=== PATIENT | male | born 1965 | race Caucasian/White ===

== ENCOUNTER → 2018-08-17 22:49 | Outpatient (CLI) | payer BC, SELFPAY ==
[2018-08-17 23:26] LABS: ALB/GLOB Ratio 1.2 RATIO (0.9-2.4); AST(SGOT) 22 U/L (15-37); Alanine Aminotransfer ALT/SGPT 47 U/L (16-61); Albumin, Serum 4.2 g/dL (3.2-5.0); Alkaline Phosphatase 44 U/L (45-117); Anion Gap 9 (5-15); BUN 14 mg/dL (7-18); Calcium,Total 8.7 mg/dL (8.5-10.1); Chloride 104 mmol/L (98-107); Cholesterol 154 mg/dL (200); Creatinine, Serum 0.94 mg/dL (0.70-1.30); EST Glomerular Filtration Rate 89 mL/min (>60); Est Glom Filt Rate - Afr Amer 108 mL/min (>60); Globulin 3.6 g/dL (2.2-4.2); Glucose 141 mg/dL (74-106); High Density Lipoprotein 27 mg/dL; Potassium 3.9 mmol/L (3.5-5.1); Protein, Total 7.8 g/dL (6.4-8.2); Sodium Level 138 mmol/L (136-145); Triglycerides 507 mg/dL
== END ==
PROVIDERS: Visit Provider Nurse Practitioner
DX: E11.65 Type 2 diabetes mellitus with hyperglycemia (principal); E78.1 Pure hyperglyceridemia
CPT/HCPCS: 80053; 80061

== ENCOUNTER → 2019-08-12 17:53 | Outpatient (CLI) | payer BC, SELFPAY ==
[2019-08-12 11:13] VITALS: BMI 38.6
[2019-08-12 18:08] LABS: Absolute Lymphocyte Count 1.85 X10^3/uL (0.83-4.51); Basophil# 0.05 X10^3/uL; Basophil% 0.7 % (0-1); Eosinophil# 0.17 X10^3/uL; Eosinophils% 2.2 % (0-5); Hemoglobin 16.6 g/dL (13.0-16.5); Lymphocyte # 1.85 X10^3/ul (4.0); Lymphocyte % 24.3 % (19-41); Mean Corp Hgb Conc 35.3 g/dL (32-36); Mean Corpuscular Hgb 32.2 pg (27.0-32.0); Mean Corpuscular Volume 91.1 fL (80-94); Mean Platelet Vol. 9.6 fl (6.2-12.0); Monocyte# 0.51 X10^3/uL; Monocyte% 6.7 % (0-10); NRBC Flagged by Analyzer 0 % (0-5); Neutrophil # 5.03 X10^3/uL (2.7-7.7); Platelet Count 226 K/mm3 (150-450); RBC Distribution Width SD 42.7 fl (35.1-43.9); Red Blood Count 5.16 M/mm3 (4.6-6.2); White Blood Count 7.6 K/mm3 (4.4-11.0)
[2019-08-12 18:35] LABS: ALB/GLOB Ratio 1.1 RATIO (0.9-2.4); AST(SGOT) 18 U/L (15-37); Alanine Aminotransfer ALT/SGPT 32 U/L (16-61); Albumin, Serum 4.1 g/dL (3.2-5.0); Alkaline Phosphatase 42 U/L (45-117); Anion Gap 7 (5-15); BUN 12 mg/dL (7-18); BUN/Creat Ratio 15.1 RATIO (10-20); Calcium,Total 9.4 mg/dL (8.5-10.1); Chloride 106 mmol/L (98-107); Cholesterol 150 mg/dL (200); EST Glomerular Filtration Rate 107 mL/min (>60); Est Glom Filt Rate - Afr Amer 129 mL/min (>60); Globulin 3.6 g/dL (2.2-4.2); Glucose 146 mg/dL (74-106); High Density Lipoprotein 30 mg/dL; Potassium 4.1 mmol/L (3.5-5.1); Protein, Total 7.7 g/dL (6.4-8.2); Sodium Level 140 mmol/L (136-145); Triglycerides 277 mg/dL; Very Low Density Lipoprotein 55 mg/dL (5-40)
== END ==
PROVIDERS: Referring Provider Nurse Practitioner; Visit Provider Nurse Practitioner
DX: I10 Essential (primary) hypertension (principal); E78.1 Pure hyperglyceridemia; E11.65 Type 2 diabetes mellitus with hyperglycemia
CPT/HCPCS: 80053; 80061; 85025

== ENCOUNTER → 2021-03-06 | Outpatient (CLI) | payer OTHER, SELFPAY ==
[2021-03-06 18:40] VITALS: BMI 38.7
[2021-03-06 21:25] LABS: Absolute Lymphocyte Count 2.03 X10^3/uL (0.83-4.51); Absolute Neutrophil Count 4.3 X10^3/uL (2.0-7.7); Basophil# 0.05 X10^3/uL; Basophil% 0.7 % (0-1); Eosinophil# 0.18 X10^3/uL; Eosinophils% 2.5 % (0-5); Hematocrit 47.2 % (40-54); Hemoglobin 16.8 g/dL (13.0-16.5); Lymphocyte # 2.03 X10^3/ul (0.83-4.51); Lymphocyte % 28.7 % (19-41); Mean Corp Hgb Conc 35.6 g/dL (32-36); Mean Corpuscular Hgb 32.1 pg (27.0-32.0); Mean Corpuscular Volume 90.1 fL (80-94); Mean Platelet Vol. 9.6 fl (6.2-12.0); Monocyte# 0.53 X10^3/uL; Monocyte% 7.5 % (0-10); NRBC Flagged by Analyzer 0 % (0-5); Neutrophil # 4.25 X10^3/uL (2.7-7.7); Neutrophil % 60.2 % (47-70); Platelet Count 249 K/mm3 (150-450); RBC Distribution Width CV 13.3 % (11.6-14.6); RBC Distribution Width SD 43.1 fl (35.1-43.9); Red Blood Count 5.24 M/mm3 (4.6-6.2); White Blood Count 7.1 K/mm3 (4.4-11.0)
[2021-03-06 21:42] LABS: ALB/GLOB Ratio 1.1 RATIO (0.9-2.4); AST(SGOT) 28 U/L (15-37); Alanine Aminotransfer ALT/SGPT 48 U/L (16-61); Alkaline Phosphatase 51 U/L (45-117); Anion Gap 6 (5-15); BUN 16 mg/dL (7-18); Calcium,Total 9.1 mg/dL (8.5-10.1); Chloride 104 mmol/L (98-107); Cholesterol 161 mg/dL (200); Creatinine, Serum 0.94 mg/dL (0.70-1.30); EST Glomerular Filtration Rate 88 mL/min (>60); Est Glom Filt Rate - Afr Amer 106 mL/min (>60); Globulin 3.6 g/dL (2.2-4.2); Glucose 200 mg/dL (74-106); High Density Lipoprotein 26 mg/dL; PSA,Total - Annual Screen 0.54 ng/mL (0.00-4.00); Potassium 4.1 mmol/L (3.5-5.1); Protein, Total 7.6 g/dL (6.4-8.2); Sodium Level 137 mmol/L (136-145); Triglycerides 689 mg/dL
== END | disposition home or self-care (01) ==
PROVIDERS: PCP Nurse Practitioner; Referring Provider Nurse Practitioner; Visit Provider Nurse Practitioner
DX: E11.65 Type 2 diabetes mellitus with hyperglycemia (principal); E78.1 Pure hyperglyceridemia; R35.0 Frequency of micturition
CPT/HCPCS: 80053; 80061; 84153; 85025; G0103

== ENCOUNTER → 2021-06-10 | Outpatient (CLI) | payer OTHER, SELFPAY ==
[2021-06-10 21:45] LABS: Cholesterol 180 mg/dL (200); High Density Lipoprotein 29 mg/dL; Triglycerides 487 mg/dL
== END | disposition home or self-care (01) ==
PROVIDERS: PCP Nurse Practitioner; Visit Provider Nurse Practitioner
DX: E11.65 Type 2 diabetes mellitus with hyperglycemia (principal)
CPT/HCPCS: 80061

== ENCOUNTER → 2021-09-16 22:11 | Outpatient (CLI) | payer BC, SELFPAY ==
[2021-09-16 22:50] LABS: Cholesterol 152 mg/dL (200); High Density Lipoprotein 30 mg/dL; Triglycerides 414 mg/dL
[2021-09-16 22:53] LABS: Hemoglobin A1c 8.1 % (3.8-5.6)
== END ==
PROVIDERS: PCP Nurse Practitioner; Referring Provider Nurse Practitioner; Visit Provider Nurse Practitioner
DX: E11.65 Type 2 diabetes mellitus with hyperglycemia (principal); E78.1 Pure hyperglyceridemia
CPT/HCPCS: 80061; 83036

== ENCOUNTER → 2022-06-05 | Outpatient (CLI) | payer BC, SELFPAY ==
[2022-06-05 21:26] LABS: Absolute Lymphocyte Count 2.12 X10^3/uL (0.83-4.51); Absolute Neutrophil Count 4.7 X10^3/uL (2.0-7.7); Basophil# 0.04 X10^3/uL; Basophil% 0.5 % (0-1); Eosinophil# 0.14 X10^3/uL; Eosinophils% 1.9 % (0-5); Hematocrit 47.4 % (40-54); Hemoglobin 16.8 g/dL (13.0-16.5); Lymphocyte # 2.12 X10^3/ul (0.83-4.51); Lymphocyte % 28.3 % (19-41); Mean Corp Hgb Conc 35.4 g/dL (32-36); Mean Corpuscular Hgb 32.1 pg (27.0-32.0); Mean Corpuscular Volume 90.6 fL (80-94); Mean Platelet Vol. 9.6 fl (6.2-12.0); Monocyte# 0.51 X10^3/uL; Monocyte% 6.8 % (0-10); NRBC Flagged by Analyzer 0 % (0-5); Neutrophil # 4.67 X10^3/uL (2.7-7.7); Neutrophil % 62.2 % (47-70); Platelet Count 235 K/mm3 (150-450); RBC Distribution Width CV 12.5 % (11.6-14.6); RBC Distribution Width SD 40.8 fl (35.1-43.9); Red Blood Count 5.23 M/mm3 (4.6-6.2); White Blood Count 7.5 K/mm3 (4.4-11.0)
[2022-06-05 21:40] LABS: ALB/GLOB Ratio 1.3 RATIO (0.9-2.4); AST(SGOT) 30 U/L (15-37); Alanine Aminotransfer ALT/SGPT 41 U/L (16-61); Albumin, Serum 4.4 g/dL (3.2-5.0); Alkaline Phosphatase 37 U/L (45-117); Anion Gap 9 (5-15); BUN 14 mg/dL (7-18); BUN/Creat Ratio 16.2 RATIO (10-20); Calcium,Total 9.4 mg/dL (8.5-10.1); Chloride 106 mmol/L (98-107); Cholesterol 96 mg/dL (200); Creatinine, Serum 0.86 mg/dL (0.70-1.30); EST Glomerular Filtration Rate 97 mL/min (>60); Est Glom Filt Rate - Afr Amer 117 mL/min (>60); Globulin 3.3 g/dL (2.2-4.2); Glucose 171 mg/dL (74-106); High Density Lipoprotein 31 mg/dL; Protein, Total 7.7 g/dL (6.4-8.2); Sodium Level 137 mmol/L (136-145); Triglycerides 233 mg/dL; Very Low Density Lipoprotein 47 mg/dL (5-40)
== END | disposition home or self-care (01) ==
PROVIDERS: PCP Nurse Practitioner; Visit Provider Nurse Practitioner
DX: Z00.00 Encounter for general adult medical examination without abnormal findings (principal)
CPT/HCPCS: 80053; 80061; 84153; 85025; G0103

== ENCOUNTER 2023-06-28 21:02 | Outpatient (CLI) | payer BC, SELFPAY ==
[2023-06-28 21:18] LABS: Absolute Lymphocyte Count 2.14 X10^3/uL (0.83-4.51); Absolute Neutrophil Count 4.6 X10^3/uL (2.0-7.7); Basophil# 0.04 X10^3/uL; Basophil% 0.5 % (0-1); Eosinophil# 0.13 X10^3/uL; Eosinophils% 1.7 % (0-5); Hematocrit 46.6 % (40-54); Hemoglobin 16.2 g/dL (13.0-16.5); Lymphocyte # 2.14 X10^3/ul (0.83-4.51); Lymphocyte % 28.7 % (19-41); Mean Corp Hgb Conc 34.8 g/dL (32-36); Mean Corpuscular Hgb 32.2 pg (27.0-32.0); Mean Corpuscular Volume 92.6 fL (80-94); Mean Platelet Vol. 9.6 fl (6.2-12.0); Monocyte# 0.53 X10^3/uL; Monocyte% 7.1 % (0-10); NRBC Flagged by Analyzer 0 % (0-5); Neutrophil # 4.59 X10^3/uL (2.7-7.7); Neutrophil % 61.6 % (47-70); Platelet Count 220 K/mm3 (150-450); RBC Distribution Width CV 12.8 % (11.6-14.6); RBC Distribution Width SD 43.6 fl (35.1-43.9); Red Blood Count 5.03 M/mm3 (4.6-6.2); White Blood Count 7.5 K/mm3 (4.4-11.0)
[2023-06-28 21:28] LABS: ALB/GLOB Ratio 1.4 RATIO (0.9-2.4); AST(SGOT) 17 U/L (15-37); Alanine Aminotransfer ALT/SGPT 31 U/L (16-61); Albumin, Serum 4.4 g/dL (3.2-5.0); Alkaline Phosphatase 40 U/L (45-117); Anion Gap 8 (5-15); BUN 14 mg/dL (7-18); BUN/Creat Ratio 15.3 RATIO (10-20); Calcium,Total 9.5 mg/dL (8.5-10.1); Chloride 106 mmol/L (98-107); Cholesterol 111 mg/dL (200); Creatinine, Serum 0.92 mg/dL (0.70-1.30); EST Glomerular Filtration Rate 90 mL/min (>60); Est Glom Filt Rate - Afr Amer 109 mL/min (>60); Globulin 3.2 g/dL (2.2-4.2); Glucose 146 mg/dL (74-106); High Density Lipoprotein 32 mg/dL; PSA,Total - Annual Screen 0.46 ng/mL (0.00-4.00); Protein, Total 7.6 g/dL (6.4-8.2); Sodium Level 141 mmol/L (136-145); Triglycerides 241 mg/dL; Very Low Density Lipoprotein 48 mg/dL (5-40)
== END 2023-06-28 23:59 | disposition home or self-care (01) ==
LOC: LABSPEC 21:02
PROVIDERS: Visit Provider Nurse Practitioner
DX: Z00.00 Encounter for general adult medical examination without abnormal findings (principal)
CPT/HCPCS: 80053; 80061; 83036; 84153; 85025; G0103

== ENCOUNTER → 2024-11-29 | Outpatient (CLI) | payer BC, SELFPAY ==
[2024-11-29 21:59] LABS: Absolute Lymphocyte Count 2.25 X10^3/uL (0.83-4.51); Basophil# 0.06 X10^3/uL; Basophil% 0.9 % (0-1); Eosinophil# 0.16 X10^3/uL; Eosinophils% 2.3 % (0-5); Hematocrit 47.5 % (40-54); Hemoglobin 16.6 g/dL (13.0-16.5); Lymphocyte # 2.25 X10^3/ul (0.83-4.51); Lymphocyte % 32.1 % (19-41); Mean Corp Hgb Conc 34.9 g/dL (32-36); Mean Corpuscular Hgb 31.3 pg (27.0-32.0); Mean Corpuscular Volume 89.6 fL (80-94); Mean Platelet Vol. 9.5 fl (6.2-12.0); Monocyte# 0.55 X10^3/uL; Monocyte% 7.8 % (0-10); NRBC Flagged by Analyzer 0 % (0-5); Neutrophil # 3.98 X10^3/uL (2.7-7.7); Neutrophil % 56.6 % (47-70); Platelet Count 239 K/mm3 (150-450); RBC Distribution Width CV 12.9 % (11.6-14.6); RBC Distribution Width SD 42.2 fl (35.1-43.9)
[2024-11-29 22:22] LABS: ALB/GLOB Ratio 1.3 RATIO (0.9-2.4); AST(SGOT) 21 U/L (15-37); Alanine Aminotransfer ALT/SGPT 34 U/L (16-61); Albumin, Serum 4.5 g/dL (3.2-5.0); Alkaline Phosphatase 40 U/L (45-117); Anion Gap 8 (5-15); BUN 20 mg/dL (7-18); BUN/Creat Ratio 20.5 RATIO (10-20); Calcium,Total 10.1 mg/dL (8.5-10.1); Chloride 102 mmol/L (98-107); Cholesterol 94 mg/dL (200); Creatinine, Serum 0.98 mg/dL (0.70-1.30); EST Glomerular Filtration Rate 83 mL/min (>60); Est Glom Filt Rate - Afr Amer 101 mL/min (>60); Globulin 3.4 g/dL (2.2-4.2); Glucose 123 mg/dL (74-106); High Density Lipoprotein 37 mg/dL; PSA,Total - Annual Screen 0.44 ng/mL (0.00-4.00); Potassium 4.2 mmol/L (3.5-5.1); Protein, Total 7.9 g/dL (6.4-8.2); Sodium Level 138 mmol/L (136-145); Triglycerides 186 mg/dL; Very Low Density Lipoprotein 37 mg/dL (5-40)
[2024-11-29 22:31] LABS: Hemoglobin A1c 7.3 % (3.8-5.6)
== END | disposition home or self-care (01) ==
PROVIDERS: PCP Nurse Practitioner; Referring Provider Nurse Practitioner; Visit Provider Nurse Practitioner
DX: I10 Essential (primary) hypertension (principal); E78.1 Pure hyperglyceridemia
CPT/HCPCS: 80053; 80061; 83036; 84153; 85025; G0103

== ENCOUNTER 2025-04-09 13:51 | Observation (INO) | payer BC, SELFPAY ==
[2025-04-09] VITALS (10 sets, daily range): BP systolic 124–154; BP diastolic 74–87; PULSE 71–86; RESP 14–18; TEMP 36.5–37.1; O2SAT 93–99; BMI 31.8; BMI 34.8
--- NOTE | 2025-04-09 13:56 | CT_ITS ---
PROCEDURE: STROKE BRAIN/HEAD WITHOUT CONT 04/09/2025 REASON FOR EXAM: NEURO DEFICIT, ACUTE, STROKE SUSPECTED TECHNIQUE: STROKE BRAIN/HEAD WITHOUT CONT Coronal and Sagittal reconstruction series were provided. One or more dose reduction techniques were used (e.g., Automated exposure control, adjustment of the mA and/or kV according to patient size, use of iterative reconstruction technique. RADIATION DOSE SUMMARY: CTDlvol: 47.06 mGy DLP: 943.26 mGycm COMPARISON: None FINDINGS: Brain: Within normal limits for age CSF Spaces: Normal Sinuses/Mastoids: Clear at visualized levels Bones: No skull fracture or scalp hematoma CT/STROKE Brain/Head without Cont IMPRESSION: Age consistent changes, no acute findings Reading Location: [id number]
--- NOTE | 2025-04-09 13:57 | CT_ITS ---
PROCEDURE: STROKE CTA HEAD AND NECK W/CON 04/09/2025 REASON FOR EXAM: NEURO DEFICIT, ACUTE, STROKE SUSPECTED TECHNIQUE: STROKE CTA HEAD AND NECK W/CON Multiplanar Sagittal and Coronal images were obtained. CONTRAST: Isovue 370 VOLUME: 100 mL One or more dose reduction techniques were used (e.g., Automated exposure control, adjustment of the mA and/or kV according to patient size, use of iterative reconstruction technique). RADIATION DOSE SUMMARY: CTDlvol: 39.59 mGy DLP: 967.81 mGycm COMPARISON: CT head from earlier today FINDINGS: Aortic Arch: Normal size and branching pattern. No significant atherosclerotic plaque. Brachiocephalic and Subclavians: Unremarkable RIGHT Carotid: Right CCA: Unremarkable. Right ICA: Unremarkable. Maximum stenosis (NASCET): <10 % Right ECA: Unremarkable. LEFT Carotid: Left CCA: Unremarkable. Left ICA: Unremarkable. Maximum stenosis (NASCET): <10 % Left ECA: Unremarkable. Vertebrals: Codominant. Arise from the subclavians. Both vertebrals form the basilar. RIGHT Vertebral: Unremarkable. LEFT Vertebral: Unremarkable. Anatomy: [place] anatomy is normal. Aneurysm or avm: No intracranial aneurysms or large vascular malformations are identified. No suspicious enhancing lesion, no airway narrowing or deviation. No suspicious adenopathy. Thyroid gland is unremarkable, lung apices are clear, incidental note is made of a prominent large left internal jugular vein CT/STROKE CTA Head AND Neck W/Con IMPRESSION: No CTA evidence of vaso occlusive disease No demonstrated aneurysm or vascular malformation Patent vertebral arteries No CTA evidence of CCA or ICA stenosis No suspicious enhancing lesion airway narrowing or deviation. Reading Location: [id number]
--- NOTE | 2025-04-09 13:57 | EKG12_ITS ---
Test Reason : STROKE TEAM Blood Pressure : */* mmHG Vent. Rate : 84 BPM Atrial Rate : 84 BPM P-R Int : 206 ms QRS Dur : 86 ms QT Int : 366 ms P-R-T Axes : 47 30 53 degrees QTcB Int : 432 ms Normal sinus rhythm Normal ECG Confirmed by MANDI CABRERA, BEBE ([id number]), editor city STANISLAW PERRY ([id number]) on 04/10/2025 1:31:36 PM Referred By: Bacilio Partida Confirmed By: BEBE RAYMOND MD
--- NOTE | 2025-04-09 14:00 | ED.RN ---
Per Shakila with [facility] stat line, they are behind on stroke alert assessments with the doctor. She will call when the doctor is ready.
[2025-04-09 14:16] LABS: Hematocrit 42.4 % (40-54); Hemoglobin 15.2 g/dL (13.0-16.5); Immature Granulocytes Count 0.060 X10^3/uL (0.0-0.0); Mean Corp Hgb Conc 35.8 g/dL (32-36); Mean Corpuscular Volume 92.2 fL (80-94); Mean Platelet Vol. 9.1 fl (6.2-12.0); NRBC Flagged by Analyzer 0 % (0-5); Platelet Count 219 K/mm3 (150-450); RBC Distribution Width CV 12.8 % (11.6-14.6); RBC Distribution Width SD 42.7 fl (35.1-43.9); Red Blood Count 4.60 M/mm3 (4.6-6.2); White Blood Count 9.8 K/mm3 (4.4-11.0)
[2025-04-09] MEDS: 0.9% Normal Saline (1000mL) 1,000 ML 999 ML IV (14:24)
--- NOTE | 2025-04-09 14:26 | EX.ED.DYSGE1 ---
HPI History of Present Illness Chief Complaint: Dizziness Narrative Narrative: Patient is a 60-year-old male past medical history of type 2 diabetes, neuropathy, hypertension who presented to the emergency department chief complaint dizziness and feeling very off balance when he tries to walk. He states that he went to bed around 1:30 AM and he states that he felt fine and notes that when he woke up around 5:30 AM is when he felt off and he states that he had to hold onto the end of the bed before continue to walk. He states that nothing like this is ever happened before. He states that he thought if he took his medications as the day went on things would get better but they are not. He states when he tried to walk in here he had to hold onto items as he felt very off balance. Patient denies any previous history of strokes denies any blood thinner medications [facility] Medical History (Updated 04/09/25 @ 16:[address] Harry Polanco, DO) Erectile dysfunction Hernia Diabetic peripheral neuropathy Type 2 diabetes mellitus Home Medications ?Medication ?Instructions ?Recorded ?Last Taken ?Type cholecalciferol (vitamin D3) 25 1,000 unit PO QDAY 05/17/18 Unknown History mcg (1,000 unit) capsule cyanocobalamin (vitamin B-12) 1,000 mcg PO QDAY 05/17/18 Unknown History 1,000 mcg tablet (Vitamin B-12) multivitamin,[id number] 1 tab PO QDAY 05/17/18 Unknown History (Complete Multivitamin tablet) omega-3 fatty acids 1,000 mg 2,000 mg PO BID 06/10/21 Unknown History capsule (Fish Oil Concentrate) empagliflozin 25 mg-metformin ER 1 tab PO DAILY #90 ea 11/29/24 Unknown Rx 1,000 mg tablet,extended release 24hr (Synjardy XR) gabapentin 300 mg capsule 1,200 mg (4 x 300 mg) PO BID 3 11/29/24 Unknown Rx months #720 caps glimepiride 4 mg tablet 4 mg PO QAM #90 tabs 11/29/24 Unknown Rx lisinopril 10 mg tablet 10 mg PO DAILY #90 tabs 11/29/24 Unknown Rx metformin 1,000 mg tablet 1,000 mg PO QHS #90 tabs 11/29/24 Unknown Rx rosuvastatin 20 mg tablet 20 mg PO DAILY #90 tabs 11/29/24 Unknown Rx semaglutide 2 mg/dose (8 mg/3 mL) 2 mg (0.75 mL) subcut QWEEK 3 11/29/24 Unknown Rx subcutaneous pen injector months #9.75 mL blood sugar diagnostic (OneTouch #100 ea 11/30/24 Unknown Rx Ultra Test strips) blood-glucose meter (OneTouch #1 ea 11/30/24 Unknown Rx Ultra2 Meter) lancets 30 gauge (OneTouch #200 ea 11/30/24 Unknown Rx UltraSoft 2 Lancet) Allergy/AdvReac Type Severity Reaction Status Date / Time No Known Allergies Allergy Verified 04/09/25 13:57 Surgical History Labral tear of long head of right biceps tendon History of arthroscopic knee surgery History of rotator cuff surgery Social History Smoking Status: Never smoker ROS ROS ED ROS Narrative Constitutional: Complains of dizziness as noted above denies any headache, fever, chills Eyes: Denies change in vision double vision blurry vision Cardiovascular: Denies chest pain Respiratory: Denies shortness of breath Abdomen: Denies abdominal pain nausea vomit diarrhea : Denies urinary symptoms Neurological: Complains of difficulty ambulating denies any numbness, weakness, tingling Musculoskeletal: Denies back pain Skin: Denies any rashes or lesions EXAM Physical Exam Narrative Exam Narrative: General: Patient lying in bed rest comfortably did not appear to be acute distress Head: Atraumatic, normocephalic Eyes: PERRL bilaterally, EOMI blood, no conjunctival injection noted Neck: Soft, supple, trachea midline Cardiovascular: Regular rate and rhythm no murmurs gallops rubs noted Respiratory: Clear to auscultation bilaterally no rales rhonchi or wheezes noted Abdomen: Soft, nondistended, nontender to palpation Extremities: +5/5 strength noted in the bilateral upper and lower extremities, radial pulses +2/4 in the bilateral extremities, no pedal edema on exam Neurological: Patient following commands knew that he was at [facility] year is 2024. NIH of 0 GCS 15 Skin: Warm, dry contact no rashes or lesions noted Const Vital Signs: 04/09/25 13:54 04/09/25 14:11 04/09/25 14:17 Temperature 98.7 F Temperature Source Temporal Pulse Rate 86 83 Respiratory Rate 16 16 Blood Pressure 154/82 H 142/87 H Blood Pressure Mean 106 105 Pulse Ox 98 93 94 Oxygen Delivery Method Room Air Room Air 04/09/25 14:32 04/09/25 14:47 Temperature Temperature Source Pulse Rate 73 Respiratory Rate 16 Blood Pressure 142/83 H 132/74 H Blood Pressure Mean 102 93 Pulse Ox 94 95 Oxygen Delivery Method Room Air MDM MDM MDM Narrative Medical decision making narrative: Patient is a 60-year-old male who presented to the emergency department chief complaint of dizziness. On the differential diagnose includes but limited to intracranial hemorrhage, hypoglycemia, electrolyte normality, cardiac arrhythmia, posterior circulation stroke, ischemic stroke. Once workup is obtained reviewed he will be reevaluated. Patient is not a tenecteplase candidate as his symptoms started around 5:30 A. M and his last known well was 1:30 AM There was ultimately a delay in telehealth evaluation of the patient secondary to volume issues Ultimately patient was evaluated by teleneurologist Dr. Feliciano and they are recommending admission for further stroke workup and states that the patient is not a tenecteplase candidate. Patient was given 325 aspirin. Patient's CBC reviewed showed no evidence leukocytosis white blood count normal 9.8, he was 15.2, platelet count of 219. Patient INR normal at 1.1, PT of 14.1. Patient sodium normal 136, potassium normal 3.9, creatinine normal at 0.85. Patient's troponin was 12, EKG was reviewed and showed sinus rhythm with a rate of 84 beats per minutes. Patient's glucose was noted to be 216. Patient CT head brain without contrast did not show any acute findings. Patient chest x-ray images pending at this point time. Patient's CTA head and neck showed no evidence of large vessel occlusion. At this point time will discuss case with hospitalist for admission. Spoke with hospitalist Dr. Partida who accept patient for admission. Patient notified as well as significant other at bedside all question and concerns answered. They are agreeable with this plan Lab Data Labs: Laboratory Results - last 24 hr 04/09/25 04/09/25 04/09/25 13:54 14:05 14:35 WBC 9.8 RBC 4.60 Hgb 15.2 Hct 42.4 MCV 92.2 MCH 33.0 H MCHC 35.8 RDW Std Deviation 42.7 RDW Coeff of Brody 12.8 Plt Count 219 MPV 9.1 Immature Gran % (Auto) 0.600 Neut % (Auto) 69.6 Lymph % (Auto) 20.8 [place] % (Auto) 7.4 Eos % (Auto) 1.1 Baso % (Auto) 0.5 Absolute Neuts (auto) 6.8 Absolute Lymphs (auto) 2.03 Nucleated RBC % 0 PT Cancelled 14.1 INR Cancelled 1.1 APTT Cancelled 24.6 Sodium 136 Potassium 3.9 Chloride 103 Carbon Dioxide 20.0 L Anion Gap 14 BUN 11 Creatinine 0.85 Estim Creat Clear Calc 115.09 Est GFR (MDRD) Non-Af 99 BUN/Creatinine Ratio 12.5 Glucose 216 H Calcium 9.6 Troponin T High Sens 12 POC Glucose 193 H Radiography Diagnostic Testing: Clinical Impression(s) from Imaging Studies Brain CT 04/09/25 13:56 IMPRESSION: Age consistent changes, no acute findings Reading Location: [facility] Head/Neck CTA 04/09/25 13:57 IMPRESSION: No CTA evidence of vaso occlusive disease No demonstrated aneurysm or vascular malformation Patent vertebral arteries No CTA evidence of CCA or ICA stenosis No suspicious enhancing lesion airway narrowing or deviation. Reading Location: [facility] Discharge Plan Triage Chief Complaint: Dizziness ED Provider: Harry Polanco Dx/Rx/DC Orders Clinical Impression: Dizziness, Diabetes type 2, uncontrolled, Hypertension, Neuropathy Prescriptions: No Action cholecalciferol (vitamin D3) 1,000 unit capsule 1,000 unit PO QDAY cyanocobalamin (vitamin B-12) [Vitamin B-12] 1,000 mcg tablet 1,000 mcg PO QDAY multivitamin,[id number] [Complete Multivitamin] tablet 1 tab PO QDAY omega-3 fatty acids [Fish Oil Concentrate] 1,000 mg capsule 2,000 mg PO BID Synjardy XR 25-1,000 mg tablet, IR - ER, biphasic 24hr 1 tab PO DAILY Qty: 90 4RF gabapentin 300 mg capsule 1,200 mg PO BID 90 Days Qty: 720 4RF glimepiride 4 mg tablet 4 mg PO QAM Qty: 90 4RF Rx Instructions: administer with breakfast lisinopril 10 mg tablet 10 mg PO DAILY Qty: 90 4RF metformin 1,000 mg tablet 1,000 mg PO QHS Qty: 90 4RF rosuvastatin 20 mg tablet 20 mg PO DAILY Qty: 90 4RF semaglutide 2 mg/dose (8 mg/3 mL) pen injector 2 mg subcut QWEEK 90 Days Qty: 9.75 3RF (DME) OneTouch Ultra Test Strip See Rx Instructions .Route Qty: 100 12RF Rx Instructions: use 2 x a day , fasting and 1-2 hrs after eating (DME) blood-glucose meter [OneTouch Ultra2 Meter] Misc See Rx Instructions .Route Qty: 1 0RF Rx Instructions: As directed (DME) lancets [OneTouch UltraSoft 2 Lancet] 30 gauge misc See Rx Instructions .Route Qty: 200 3RF Rx Instructions: use 2 x a day Primary Care Provider: Josy Marrero NP Referrals: Josy Marrero NP, [facility] [Primary Care Provider] - Print Language: Mauritanian
[2025-04-09 14:52] LABS: Anion Gap 14 (5-15); BUN 11 mg/dL (4-19); BUN/Creat Ratio 12.5 RATIO (10-20); Calcium,Total 9.6 mg/dL (7.6-11.0); Carbon Dioxide 20.0 mmol/L (21.0-32.0); Chloride 103 mmol/L (98-108); Estimated Creatinine Clearance 115.09 ml/min (50-250); Glucose 216 mg/dL (70-99); Potassium 3.9 mmol/L (3.3-5.1)
[2025-04-09 14:53] LABS: Troponin T High Sensitivity 12 ng/L (<=22)
[2025-04-09 15:01] LABS: Prothrombin Time (Protime)PT. 14.1 SECONDS (11.7-14.9)
[2025-04-09 15:02] LABS: Partial Thromboplast Time 24.6 Seconds (24.1-36.2)
--- NOTE | 2025-04-09 16:01 | PCM.HP.STD ---
HPI - General General Date of Admission: 04/09/25 Date of Service: 04/09/25 Chief Complaint: Dizziness and disequilibrium HPI Narrative SUMMER MA, is a 60 M who presented to [facility] ED on 04/09/2025 with dizziness and disequilibrium. 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 Patient went to bed around 1:30 AM and had no issues at that time. However when he woke up around 5:30 AM he felt dizzy. When he got out of bed he had difficulty with balance and ambulation without holding onto something. Only other time he has felt like this was when he was initially diagnosed with diabetes about 10 years ago and his blood sugars were very high. The symptoms did not improve quickly so he called EMS and was brought in for further evaluation. In the ED he was mildly hypertensive to the 140s and 150s systolic but otherwise hemodynamically stable on room air. CBC and BMP were benign. Glucose 216 but notably last A1c was 7.3% in November and his A1c values have typically been between 7 [address] 8[address] brain and CTA head/neck were unremarkable. EKG showed normal sinus rhythm, no ischemic changes. Was evaluated by teleneurology who recommended admission for stroke workup. Hospitalist was then contacted for admission. I saw the patient at bedside in the ED. Patient was pleasant and sitting back comfortably in bed, in no acute distress. Reports very mild dizziness at rest, improved from this morning. Has not gotten out of bed since arrival to the ED. He denies any recent illnesses. Lives at home and typically has good functional status at baseline. He works full-time and was concerned about missing work with hospitalization but was agreeable to coming in. No other acute concerns noted. Will be admitted for further management. [facility] Medical History (Updated 04/09/25 @ 16:[address] Harry Polanco, DO) Non-smoker Erectile dysfunction Hernia Diabetic peripheral neuropathy Type 2 diabetes mellitus Home Medications ?Medication ?Instructions ?Recorded ?Last Taken ?Type cholecalciferol (vitamin D3) 25 1,000 unit PO QDAY 05/17/18 Unknown History mcg (1,000 unit) capsule cyanocobalamin (vitamin B-12) 1,000 mcg PO QDAY 05/17/18 Unknown History 1,000 mcg tablet (Vitamin B-12) multivitamin,[id number] 1 tab PO QDAY 05/17/18 Unknown History (Complete Multivitamin tablet) omega-3 fatty acids 1,000 mg 2,000 mg PO BID 06/10/21 Unknown History capsule (Fish Oil Concentrate) empagliflozin 25 mg-metformin ER 1 tab PO DAILY #90 ea 11/29/24 Unknown Rx 1,000 mg tablet,extended release 24hr (Synjardy XR) gabapentin 300 mg capsule 1,200 mg (4 x 300 mg) PO BID 3 11/29/24 Unknown Rx months #720 caps glimepiride 4 mg tablet 4 mg PO QAM #90 tabs 11/29/24 Unknown Rx lisinopril 10 mg tablet 10 mg PO DAILY #90 tabs 11/29/24 Unknown Rx metformin 1,000 mg tablet 1,000 mg PO QHS #90 tabs 11/29/24 Unknown Rx rosuvastatin 20 mg tablet 20 mg PO DAILY #90 tabs 11/29/24 Unknown Rx semaglutide 2 mg/dose (8 mg/3 mL) 2 mg (0.75 mL) subcut QWEEK 3 11/29/24 Unknown Rx subcutaneous pen injector months #9.75 mL blood sugar diagnostic (OneTouch #100 ea 11/30/24 Unknown Rx Ultra Test strips) blood-glucose meter (OneTouch #1 ea 11/30/24 Unknown Rx Ultra2 Meter) lancets 30 gauge (OneTouch #200 ea 11/30/24 Unknown Rx UltraSoft 2 Lancet) Allergy/AdvReac Type Severity Reaction Status Date / Time No Known Allergies Allergy Verified 04/09/25 13:57 Surgical History Labral tear of long head of right biceps tendon History of arthroscopic knee surgery History of rotator cuff surgery Social History Smoking Status: Never smoker ROS Constitutional Constitutional: Denies chills, fatigue, fever(s) or weakness Eyes Eyes: Denies change in vision Cardiovascular Cardiovascular: Denies chest pain, dyspnea on exertion, edema, lightheadedness or palpitations Respiratory/Chest Respiratory/Chest: Denies cough or shortness of breath at rest Gastrointestinal Gastrointestinal: Denies abdominal pain, constipation, diarrhea, nausea or vomiting Genitourinary Genitourinary: Denies dysuria Musculoskeletal Musculoskeletal: Denies arthralgias or myalgias Neurologic Neurologic: Reports abnormal gait, disequilibrium and dizziness; Denies focal weakness, headache(s), numbness or tingling Vital Signs Vital Signs Vital Signs: 04/09/25 13:54 04/09/25 14:11 04/09/25 14:17 Temperature 98.7 F Temperature Source Temporal Pulse Rate 86 83 Respiratory Rate 16 16 Blood Pressure 154/82 H 142/87 H Blood Pressure Mean 106 105 Pulse Ox 98 93 94 Oxygen Delivery Method Room Air Room Air 04/09/25 14:32 04/09/25 14:47 Temperature Temperature Source Pulse Rate 73 Respiratory Rate 16 Blood Pressure 142/83 H 132/74 H Blood Pressure Mean 102 93 Pulse Ox 94 95 Oxygen Delivery Method Room Air Weight Weight: 106.5 kg Body Mass Index (BMI) 31.8 Physical Exam Const alert, oriented x3 and no apparent distress Constitutional Narrative: Upper middle-aged male, class I obesity, mildly fatigued appearing but otherwise sitting back comfortably in bed, conversing normally, in no acute distress. General Appearance: cooperative and comfortable HEENT normocephalic, head/scalp atraumatic, hearing grossly normal bilaterally, nasal mucous membranes and turbinates normal and moist oral mucous membranes Eyes PERRL, EOMs intact bilaterally and conjunctivae normal Neck full ROM Chest inspection of chest normal Resp normal respiratory effort, normal air movement, no use of accessory muscles and clear to auscultation bilaterally Cardio regular rate, regular rhythm, no murmurs and peripheral pulses 2+ throughout GI normal to inspection, nondistended, normoactive bowel sounds, soft to palpation, non-tender and non-distended Back/Spine normal ROM Extremity normal to inspection, full ROM and no pedal edema Skin no rashes or lesions noted Neuro oriented x3, CN's II-XII intact bilaterally, moves all extremities and no focal motor deficits Speech: speech normal Motor Exam: strength 5/5 throughout Psych mental status grossly normal Results Lab / Micro Data 04/09/25 14:05 04/09/25 14:05 Labs: Laboratory Results - last 24 hr 04/09/25 13:54: POC Glucose 193 H 04/09/25 14:05: WBC 9.8, RBC 4.60, Hgb 15.2, Hct 42.4, MCV 92.2, MCH 33.0 H, MCHC 35.8, RDW Std Deviation 42.7, RDW Coeff of Brody 12.8, Plt Count 219, MPV 9.1, Immature Gran % (Auto) 0.600, Neut % (Auto) 69.6, Lymph % (Auto) 20.8, [place] % (Auto) 7.4, Eos % (Auto) 1.1, Baso % (Auto) 0.5, Absolute Neuts (auto) 6.8, Absolute Lymphs (auto) 2.03, Nucleated RBC % 0, PT Cancelled, INR Cancelled, APTT Cancelled, Sodium 136, Potassium 3.9, Chloride 103, Carbon Dioxide 20.0 L, Anion Gap 14, BUN 11, Creatinine 0.85, Estim Creat Clear Calc 115.09, Est GFR (MDRD) Non-Af 99, BUN/Creatinine Ratio 12.5, Glucose 216 H, Calcium 9.6, Troponin T High Sens 12 04/09/25 14:35: PT 14.1, INR 1.1, APTT 24.6 Imaging Radiology Impression Brain CT 04/09/25 13:56 IMPRESSION: Age consistent changes, no acute findings Reading Location: [facility] Head/Neck CTA 04/09/25 13:57 IMPRESSION: No CTA evidence of vaso occlusive disease No demonstrated aneurysm or vascular malformation Patent vertebral arteries No CTA evidence of CCA or ICA stenosis No suspicious enhancing lesion airway narrowing or deviation. Reading Location: [facility] Assessment & Plan Assessment/Plan (1) Dizziness: PLAN: Plan Patient is a 60-year-old male who presented to [facility] ED on 04/09/2025 with dizziness and disequilibrium. 1. Dizziness and disequilibrium, CVA rule out ? Admit under observation status to PCU. Neurology consulted. Symptoms improved in the ED, suspect high-dose of home gabapentin could be contributing but cannot rule out stroke given his history as below. CT brain and CTA head/neck unremarkable. MRI brain and echo with bubble study ordered. Lipid panel, A1c and TSH ordered. Will treat with baby aspirin and continue home high intensity statin. PT/OT/case management consulted. 2. Type 2 diabetes mellitus with diabetic neuropathy ? Blood glucose 216 on admit. Last A1c 7.3% in November, repeat A1c ordered. Hold home metformin, glimepiride, empagliflozin and semaglutide. Will treat with sliding scale insulin with meals while inpatient, adjust as needed. Notably is on gabapentin 1200 mg twice daily at home. Reviewed [facility] and patient has been filling this regularly for the past few years. Continue gabapentin at this dose. 3. Hypertension ? Mildly hypertensive to the 140s to 150s systolic in the ED. Hold home lisinopril for permissive hypertension. 4. Hyperlipidemia ? Continue home statin as above. 5. Class I obesity ? BMI 34 on admit. Encouraged lifestyle modifications. Complicates hospital course, care and prognosis. DVT prophylaxis: SCDs CODE STATUS: Full code, verified Expected disposition: Home, 1 to 2 days Total clinical time spent by myself addressing the patient's medical issues, reviewing all the data, and collaborating with patient's care team: 75 minutes. Charges/Coding Visit Charges Inpatient E&M: 08551 Init Hosp L3
--- NOTE | 2025-04-09 16:08 | ECHOCS_ITS ---
Reason For Study Reason For Study: TIA/CVA Procedure This was a 2D Doppler, Color Flow transthoracic echocardiogram. The study was technically difficult. Contrast injection was performed. Exam performed portable in patient room. Left Ventricle Normal left ventricle. The estimated ejection fraction is 55???60 %. Right Ventricle Normal right ventricle. Atria Normal left atrium. Normal right atrium. Bubble contrast study is negative for PFO/ASD. Mitral Valve The mitral valve is structurally normal. No prolapse or stenosis seen. Tricuspid Valve Normal tricuspid valve. Aortic Valve Trisinus/trileaflet aortic valve. Pulmonic Valve The pulmonic valve is not well visualized. Great Vessels The aortic root is not well visualized. Pericardium/Pleural No pericardial effusion. Medication Diluted definity 2ml given slow IV push to enhance endocardial definition. Performed a rapid injection of agitated mix of 9 cc saline and 1cc air to assess for atrial septal defect. MMode/2D Measurements & Calculations LVIDd: 4.5 cm IVSd: 0.96 cm Ao root diam: 3.3 cm LVIDs: 3.0 cm LVPWd: 0.82 cm RVDd: 4.0 cm FS: 32.6 % LAV(MOD-bp): 44.0 ml LVAd ap4: 31.2 cm2 SV(MOD-sp4): 59.4 ml LAV(MOD-bp) Indexed: 19.3 ml/m2 LVLd ap4: 8.3 cm SI(MOD-sp4): 26.1 ml/m2 LAV(MOD-sp2): 36.7 ml EDV(MOD-sp4): 94.6 ml LAV(MOD-sp4): 51.8 ml EDV(sp4-el): 99.1 ml LVAs ap4: 16.9 cm2 LVLs ap4: 6.8 cm ESV(MOD-sp4): 35.2 ml ESV(sp4-el): 35.6 ml EF(MOD-sp4): 62.8 % EF(sp4-el): 64.1 % SV(sp4-el): 63.5 ml LA A4 area: 18.4 cm2 LA dimension(2D): 4.6 cm RA A4 area: 15.7 cm2 Time Measurements MV dec time: 0.21 sec Doppler Measurements & Calculations MV E max eric: 60.1 cm/sec Lat Peak E' Eric: 10.9 cm/sec Med Peak E' Eric: 10.8 cm/sec MV A max eric: 68.9 cm/sec E/E' lat: 5.5 E/E' med: 5.6 MV E/A: 0.87 MV V2 max: 86.4 cm/sec MV P1/2t max eric: 83.2 cm/sec Ao V2 max: 120.6 cm/sec MV max P.0 mmHg MV P1/2t: 93.0 msec Ao max P.8 mmHg MV V2 mean: 50.8 cm/sec MV dec slope: 262.0 cm/sec2 Ao V2 mean: 85.5 cm/sec MV mean P.2 mmHg MVA(P1/2t): 2.4 cm2 Ao mean P.3 mmHg MV V2 VTI: 31.5 cm Ao V2 VTI: 29.1 cm AV (velocity ratio): 0.78 LV V1 max: 99.7 cm/sec TR max eric: 222.7 cm/sec LV V1 max P.0 mmHg TR max P.8 mmHg LV V1 mean P.3 mmHg LV V1 mean: 70.4 cm/sec LV V1 VTI: 22.8 cm ECHO/Echo Complete W/ Contrast Interpretation Summary The estimated ejection fraction is 55???60 %. Normal LV systolic function No significant valvular abnormality. No previous echo to compare Ordering Physician: Bacilio Partida Referring Physician: Bacilio Partida Performed By: Alex Sosa RCS
--- NOTE | 2025-04-09 16:08 | MRI_ITS ---
PROCEDURE: BRAIN WITHOUT CONTRAST 04/09/2025 REASON FOR EXAM: CVA RULE OUT TECHNIQUE: BRAIN WITHOUT CONTRAST Multiplanar and multisequence images were obtained. COMPARISON: Same day CT. FINDINGS: Mild global parenchymal atrophy. No evidence of acute hemorrhage or infarction. No extra-axial blood or fluid collections. The paranasal sinuses are clear. MRI/Brain without Contrast IMPRESSION: No acute intracranial abnormality. Reading Location: [place] [id number]
[2025-04-09 17:47] LABS: Troponin T High Sens 2 HR 10 ng/L (<=22)
--- NOTE | 2025-04-09 19:37 | CM.ED ---
Social Work Reason for visit: Stroke Alert SW took patients to room while patient was in testing. appreciative of the company, stated she was glad her was at the hospital getting checked out. Emotional support provided, no further needs at this time. Kayleigh Landers, VISUAL EDUCATOR, WAXER OPERATOR
[2025-04-09 21:19] LABS: Troponin T High Sens 4 HR 10 ng/L (<=22)
--- OUTSIDE RECORDS SUMMARY | 2025-04-09 23:56 | XMS RPT_ITS | CCD ---
Author Organization [facility] Care Team Providers Care Recessing Machine Operator Name Role Phone Janes BUMPER MACHINE OPERATOR, Josy Referring Unavailable Janes BUMPER MACHINE OPERATOR, Josy Attending Unavailable Janes BUMPER MACHINE OPERATOR, Josy Primary Care Unavailable Janes BUMPER MACHINE OPERATOR-C, Josy Primary Care Provider Janes RIDLEY-C, Josy Attending Provider Janes RIDLEY-C, Josy Referring Provider Dr. Harry Polanco DO Emergency Provider [phone] Dr. Bacilio Partida DO Admit Provider Dr. Bacilio Partida DO Attending Provider Dr. Bacilio Partida DO Referring Provider Medications Current Medications Medication Drug Class(es) Dates Sig (Normalized) Sig (Original) Blood-Glucose Meter (Onetouch Ultra2 Meter) misc (1 source) Start: 11-30-2024 Blood-Glucose Meter (Onetouch Ultra2 Meter) misc Active 0 .Route 1 0 November 30, 2024 1:00am Uncontrolled type 2 diabetes mellitus Type 2 diabetes mellitus with hyperglycemia As directed cholecalciferol 0.025 mg oral capsule (1 source) Vitamin D Start: 05-17-2018 take 1 capsule by mouth once daily Cholecalciferol (Vitamin D3) 1,000 unit capsule Active 1000 U PO daily May 17, 2018 12:00am 24 hr empagliflozin 25 mg / metFORMIN hydrochloride 1000 mg extended release oral tablet (6 sources) Biguanide, Sodium-Glucose Cotransporter 2 Inhibitor Start: 12-10-2020 End: 11-29-2024 Empagliflozin-Metfor min (Synjardy Xr) 25-1,000 mg tablet, IR - ER, biphasic 24hr Active 1 {tbl} PO DAILY 90 4 November 29, 2024 8:06pm gabapentin 300 mg oral capsule (17 sources) Anti-epileptic Agent Start: 10-27-2023 End: 11-29-2024 take 4 capsules by mouth twice daily Gabapentin 300 mg capsule Active 1200 mg PO TWICE A DAY 720 90 November 29, 2024 8:06pm Start: 11-10-2021 End: 10-27-2023 take 3 capsules by mouth twice daily Gabapentin 300 mg capsule Discontinued 900 mg PO TWICE A DAY 540 90 3 November 27, 2022 8:05pm October 27, 2023 7:57pm Start: 11-10-2021 End: 11-10-2021 Gabapentin 300 mg capsule Discontinued 1800 mg PO THREE TIMES A DAY 540 90 1 November 10, 2021 1:01pm November 10, 2021 2:24pm Start: 08-12-2019 End: 11-10-2021 take 1 capsule by mouth three times daily in the morning, then take 2 capsules by mouth once daily, then take 3 capsules by mouth at bedtime Gabapentin 300 mg capsule Discontinued 1800 mg PO THREE TIMES A DAY 540 90 September 16, 2021 7:45pm November 10, 2021 1:02pm 1 in the AM 2 med day 3 at HS Start: 08-17-2018 End: 08-12-2019 take 3 capsules by mouth at bedtime Gabapentin 300 mg capsule Discontinued 900 mg PO AT BEDTIME 270 90 May 03, 2019 6:10pm August 12, 2019 11:21am Start: 05-17-2018 End: 08-17-2018 take 0.2 capsule by mouth once daily Gabapentin 300 mg capsule Discontinued 300 mg PO .2 a day 60 May 17, 2018 7:47pm August 17, 2018 9:17pm lisinopril 10 mg oral tablet (10 sources) Angiotensin Converting Enzyme Inhibitor Start: 05-03-2019 End: 11-29-2024 take 1 tablet by mouth once daily Lisinopril 10 mg tablet Active 10 mg PO DAILY 90 November 29, 2024 8:06pm Start: 05-17-2018 End: 05-03-2019 take 1 tablet by mouth once daily Lisinopril 2.5 mg tablet Discontinued 2.5 mg PO daily 90 3 August 17, 2018 9:16pm May 03, 2019 6:13pm metFORMIN hydrochloride 1000 mg oral tablet (10 sources) Biguanide Start: 06-10-2021 End: 11-29-2024 take 1 tablet by mouth at bedtime Metformin 1,000 mg tablet Active 1000 mg PO AT BEDTIME 90 November 29, 2024 8:06pm Start: 05-17-2018 End: 12-10-2020 take 1 tablet by mouth twice daily Metformin 1,000 mg tablet Discontinued 1000 mg PO TWICE A DAY 180 3 March 06, 2020 6:00pm December 10, 2020 8:07pm Multivitamin,Fh-Dfxh-Thamwfx s (Complete Multivitamin) tablet (1 source) Start: 05-17-2018 Multivitamin,Sg-Ofmn-Drlibpn s (Complete Multivitamin) tablet Active 1 {tbl} PO daily May 17, 2018 12:00am Abbot-3 Fatty Acids (Fish Oi l Concentrate) 1,000 mg capsule (1 source) Start: 06-10-2021 Abbot-3 Fatty Acids (Fish Oi l Concentrate) 1,000 mg capsule Active 2000 mg PO TWICE A DAY June 10, 2021 12:00am rosuvastatin calcium 20 mg oral tablet (5 sources) HMG-CoA Reducta se Inhibit or Start: 06-12-2021 End: 11-29-2024 take 1 tablet by mouth once daily Rosuvastatin 20 mg tablet Active 20 mg PO DAILY 90 November 29, 2024 8:06pm Semaglutide 2 mg/dose (8 mg/ 3 mL) pen injector (3 sources) Start: 11-29-2024 Semaglutide 2 mg/dose (8 mg/ 3 mL) pen injector Active 2 mg SC EVERY WEEK 9.75 90 3 November 29, 2024 8:07pm Uncontrolled type 2 diabetes mellitus Type 2 diabetes mellitus with hyperglycemia Start: 02-25-2024 End: 11-29-2024 Semaglutide 2 mg/dose (8 mg/ 3 mL) pen injector Discontinued 2 mg SC EVERY WEEK 9.75 90 2 February 25, 2024 7:30pm November 29, 2024 8:08pm Uncontrolled type 2 diabetes mellitus Type 2 diabetes mellitus with hyperglycemia Start: 10-27-2023 End: 01-25-2024 Semaglutide 2 mg/dose (8 mg/ 3 mL) pen injector Discontinued 2 mg SC EVERY WEEK 9.75 90 0 October 27, 2023 1:00am January 24, 2024 12:00am January 25, 2024 12:06am Uncontrolled type 2 diabetes mellitus Type 2 diabetes mellitus with hyperglycemia vitamin b12 1 mg oral tablet (1 source) Vitamin B12 Start: 05-17-2018 take 1 tablet by mouth once daily Cyanocobalamin (Vitamin B-12) (Vitamin B-12) 1,000 mcg tablet Active 1000 ug PO daily May 17, 2018 12:00am Completed/Discontinued Medications Medication Drug Class(es) Dates Sig (Normalized) Sig (Original) amoxicillin 875 mg / clavulanate 125 mg oral tablet (1 source) Penicillin-class Antibacterial Start: 02-16-2022 End: 06-05-2022 Amoxicillin-Pot Clavulanate 875-125 mg tablet Discontinued 1 {tbl} PO TWICE A DAY 20 0 February 16, 2022 12:00am June 05, 2022 7:26pm azithromycin 250 mg oral tablet (1 source) Macrolide Antimicrobial Start: 02-04-2022 End: 02-09-2022 take 2 tablets by mouth once daily, then take 1 tablet by mouth once daily at mealtime Azithromycin 250 mg tablet Discontinued 250 mg PO daily 6 5 0 February 04, 2022 12:00am February 08, 2022 12:00am February 09, 2022 12:03am 2 po qd for 1 day then 1 po qd for 4 days with food or after eating canagliflozin 300 mg oral tablet (5 sources) Sodium-Glucose Cotransporter 2 Inhibitor Start: 05-17-2018 End: 02-12-2020 take 1 tablet by mouth once daily in the morning Canagliflozin (Invokana) 300 mg tablet Discontinued 300 mg PO EVERY MORNING 90 November 06, 2019 2:08pm February 12, 2020 6:39pm empagliflozin 25 mg oral tablet (1 source) Sodium-Glucose Cotransporter 2 Inhibitor Start: 02-12-2020 End: 12-10-2020 take 1 tablet by mouth once daily Empagliflozin (Jardiance) 25 mg tablet Discontinued 25 mg PO DAILY 90 3 February 12, 2020 12:00am December 10, 2020 8:06pm glimepiride 4 mg oral tablet (11 sources) Sulfonylurea Start: 05-17-2018 End: 11-29-2024 take 1 tablet by mouth once daily at breakfast Glimepiride 4 mg tablet Discontinued 4 mg PO EVERY MORNING 30 0 April 27, 2019 12:00am July 23, 2023 6:43pm administer with breakfast icosapent ethyl 1000 mg oral capsule (1 source) Start: 05-17-2018 End: 08-17-2018 Icosapent Ethyl (Vascepa) 1 gram capsule Discontinued 2 g PO TWICE A DAY May 17, 2018 12:00am August 17, 2018 9:00pm krill oil 500 mg oral capsule (1 source) Start: 05-17-2018 End: 02-12-2020 Krill Oil 500 mg capsule Discontinued mg PO 0 May 17, 2018 12:00am February 12, 2020 6:35pm omega-3 acid ethyl esters (intermediate) 1000 mg oral capsule (2 sources) Start: 03-07-2021 End: 06-28-2023 Abbot-3 Acid Ethyl Esters 1 gram capsule Discontinued 2 NMA PO TWICE A DAY 360 90 3 November 27, 2022 8:06pm June 28, 2023 6:32pm 0.25 mg, 0.5 mg dose 1.5 ml semaglutide 1.34 mg/ml pen injector (7 sources) Start: 05-03-2019 End: 07-23-2023 Semaglutide (Ozempic) 0.25 mg or 0.5 mg(2 mg/1.5 mL) pen injector Discontinued 0.5 mg SC EVERY WEEK 5.2 90 3 November 27, 2022 8:06pm July 23, 2023 6:42pm Start: 04-11-2019 End: 05-03-2019 Semaglutide (Ozempic) 0.25 m g or 0.5 mg(2 mg/1.5 mL) pen injector Discontinued 0.25 mg SC EVERY WEEK April 11, 2019 12:00am May 03, 2019 6:09pm Semaglutide 1 mg/dose (2 mg/1.5 mL) pen injector (1 source) Start: 06-29-2023 End: 10-27-2023 Semaglutide 1 mg/dose (2 mg/1.5 mL) pen injector Discontinued 1 mg SC EVERY WEEK 9.75 90 2 June 29, 2023 12:00am October 27, 2023 8:51pm sildenafil 100 mg oral tablet (6 sources) Phosphodiesterase 5 Inhibitor Start: 05-03-2019 End: 04-09-2025 Sildenafil 100 mg tablet Discontinued 100 mg PO DAILY as needed for sexual activity 07 22October 27, 2023 7:54pm April 09, 2025 2:15pm administer 30 minutes to 4 hours before activity triamcinolone acetonide 5 mg/ml topical cream (1 source) Corticosteroid Start: 11-27-2022 End: 04-09-2025 Triamcinolone Acetonide 0.5 % cream Discontinued 1 NMA TOPICAL TWICE A DAY 09 10November 27, 2022 1:00am April 09, 2025 2:15pm Problems Problem Classification Problem Date Documented Da te Episodic/Chronic Conditions associated with dizziness or vertigo (2 sources) Dizziness; Translations: [Dizziness and giddiness] 04-09-2025 Episodic Diabetes mellitus with complications (2 sources) Type II diabetes mellitus uncontrolled; Translations: [Diabetes mellitus without mention of complication, type II or unspecified type, uncontrolled] 10-28-2023 Chronic Diabetes mellitus without complication (1 source) Diabetes mellitus; Translations: [Type 2 diabetes mellitus without complications] 05-17-2018 Chronic Disorders of lipid metabolism (1 source) Hypertriglyceridemi a; Translations: [Pure hyperglyceridemia] 05-17-2018 Chronic Essential hypertension (3 sources) Essential (primary) hypertension; Translations: [Hypertensive disorder] Onset: 12-11-2024 02-13-2020 Chronic Other connective tissue disease (1 source) Bursitis of shoulder; Translations: [Bursitis of unspecified shoulder] 12-11-2020 Episodic Other connective tissue disease (2 sources) Tendonitis of left shoulder; Translations: [Other enthesopathies, not elsewhere classified] 02-05-2022 Episodic Other connective tissue disease (1 source) Tendonitis of right shoulder; Translations: [Other enthesopathies, not elsewhere classified] 03-10-2023 Episodic Other nervous system disorders (2 sources) Neuropathy; Translations: [Polyneuropathy, unspecified] 09-16-2021 Chronic Other non-traumatic joint disorders (1 source) Pain in left shoulder; Translations: [Left shoulder pain] 07-23-2023 Episodic Other non-traumatic joint disorders (1 source) Pain in right shoulder; Translations: [Right shoulder pain] 10-27-2022 Episodic Results Test Name Value Interpretation Reference Range Facility Absolute lymphocyte countOrd ered By: Harry Polanco on 04-09-2025 Lymphocytes Auto (Unsp spec) [#/Vol] 2.03 10*3/uL 0.83-4.51 [facility] Absolute neutrophil countOrd ered By: Harry Polanco on 04-09-2025 Neutrophils (Bld) [#/Vol] 6.8 10*3/uL 2.0-7.7 [facility] Activated partial thrombopla stin time (aPTT) in platelet poor plasma by coagulation aOrdered By: Harry Polanco on 04-09-2025 aPTT Coag (PPP) [Time] 24.6 s 24.1-36.2 [facility] Anion gap in Serum or Plasma Ordered By: Harry Polanco on 04-09-2025 Anion gap [Moles/Vol] 14 mmol/L 5-15 [facility] Automated lymphocyte count a s percentage of total leukocytesOrdered By: Harry Polanco on 04-09-2025 Lymphocytes/100 WBC Auto (Unsp spec) 20.8 % 19-41 [facility] BUN/creatinine ratioOrdered By: Harry Polanco on 04-09-2025 Urea nitrogen/Creatinine [Mass ratio] 12.5 mg/mg 10-20 [facility] Basophil percentageOrdered B y: Harry Polanco on 04-09-2025 Basophils/100 WBC (Bld) 0.5 % 0-1 [facility] Carbon dioxide, total [Moles /volume] in Central venous bloodOrdered By: Harry Polanco on 04-09-2025 CO2 [Moles/Vol] 20.0 mmol/L Low 21.0-32.0 [facility] Chloride assayOrdered By: Oj Polanco on 04-09-2025 Chloride [Moles/Vol] 103 mmol/L 98-108 [facility] Eosinophil percentageOrdered By: Harry Polanco on 04-09-2025 Eosinophils/100 WBC (Bld) 1.1 % 0-5 [facility] Erythrocyte distribution wid th ratioOrdered By: Harry Polanco on 04-09-2025 Erythrocyte distribution width (RBC) [Ratio] 12.8 % 11.6-14.6 [facility] Erythrocyte distribution wid th standard deviationOrdered By: Harry Polanco on 04-09-2025 Erythrocyte distribution width (RBC) [Ratio] 42.7 fl 35.1-43.9 [facility] Glomerular filtration rate ( GFR) estimation/1.73 sq m using serum, plasma, or whole bOrdered By: Harry Polanco on 04-09-2025 GFR/1.73 sq M.predicted among non-blacks MDRD (S/P/Bld) [Vol rate/Area] 99 mL/min/{1.73_m2} >60 [facility] Comment on above: mL/min/1.73m2 CKD-EP I Creatinine Equation (2020) [facility] deOrdered By: Harry Polanco on 04-09-2025 Glucose [Mass/Vol] 193 mg/dL High 74-106 [facility] Comment on above: MANAGEMENT OF PATIEN T CARE PER NURSING PROTOCOL Hematocrit Auto (Bld) [Volum e fraction]Ordered By: Harry Polanco on 04-09-2025 Hematocrit (Bld) [Volume fraction] 42.4 % 40-54 [facility] Hemoglobin measurementOrdere d By: Harry Polanco on 04-09-2025 Hemoglobin (Bld) [Mass/Vol] 15.2 g/dL 13.0-16.5 [facility] Immature granulocytes/100 WB C Auto (Bld)Ordered By: Harry Polanco on 04-09-2025 Immature granulocytes/100 WBC (Bld) 0.600 % 0.0-0.9 [facility] Comment on above: IG% - Immature Granu locytes (promyelocytes, myelocytes and metamyelocytes) > 1% indicates that a LEFT SHIFT is Present. International normalized rat io (INR) calculationOrdered By: Harry Polanco on 04-09-2025 INR Coag (Bld) [Relative time] 1.1 {INR} [facility] MCV (mean corpuscular volume ) determinationOrdered By: Harry Polanco on 04-09-2025 MCV (RBC) [Entitic vol] 92.2 fL 80-94 [facility] Mean corpuscular hemoglobin (MCH) determinationOrdered By: Harry Polanco on 04-09-2025 MCH (RBC) [Entitic mass] 33.0 pg High 27.0-32.0 [facility] Mean corpuscular hemoglobin concentration (MCHC) determinationOrdered By: Harry Polanco on 04-09-2025 MCHC (RBC) [Mass/Vol] 35.8 g/dL 32-36 [facility] Mean platelet volume determi nationOrdered By: Harry Polanco on 04-09-2025 Platelet mean volume (Bld) [Entitic vol] 9.1 fL 6.2-12.0 [facility] Monocyte percentageOrdered B y: Harry Polanco on 04-09-2025 Monocytes/100 WBC (Bld) 7.4 % 0-10 [facility] Neutrophil percentageOrdered By: Harry Polanco on 04-09-2025 Neutrophils/100 WBC (Bld) 69.6 % 47-70 [facility] Nucleated red blood cell per centageOrdered By: Harry Polanco on 04-09-2025 Nucleated RBC/100 WBC (Bld) [Ratio] 0 % 0-5 [facility] Platelet countOrdered By: Oj Polanco on 04-09-2025 Platelets (Bld) [#/Vol] 219 10*3/uL 150-450 [facility] Potassium measurement (mass/ volume)Ordered By: Harry Polanco on 04-09-2025 Potassium (Unsp spec) [Mass/Vol] 3.9 mmol/L 3.3-5.1 [facility] Prothrombin timeOrdered By: Harry Polanco on 04-09-2025 PT Coag (PPP) [Time] 14.1 s 11.7-14.9 [facility] RBC Auto (Bld) [#/Vol]Ordere d By: Harry Polanco on 04-09-2025 RBC (Bld) [#/Vol] 4.60 10*6/uL 4.6-6.2 [facility] Serum creatinine measurement (mass/volume)Ordered By: Harry Polanco on 04-09-2025 Creatinine [Mass/Vol] 0.85 mg/dL 0.70-1.20 [facility] Serum glucose measurement (m ass/volume)Ordered By: Harry Polanco on 04-09-2025 Glucose [Mass/Vol] 216 mg/dL High 70-99 [facility] Serum or plasma calcium kate urement (mass/volume)Ordered By: Harry Polanco on 04-09-2025 Calcium [Mass/Vol] 9.6 mg/dL 7.6-11.0 [facility] Serum or plasma urea nitroge n measurement (mass/volume)Ordered By: Harry Polanco on 04-09-2025 Urea nitrogen [Mass/Vol] 11 mg/dL 4-19 [facility] Sodium levelOrdered By: Kun Ploanco on 04-09-2025 Sodium [Moles/Vol] 136 mmol/L 133-145 [facility] Troponin T.cardiac [Mass/vol ume] in Serum or Plasma by High sensitivity methodOrdered By: Harry Polanco on 04-09-2025 Troponin T.cardiac High sensitivity method [Mass/Vol] 12 ng/L <22 [facility] White blood cell (WBC) count Ordered By: Harry Polanco on 04-09-2025 WBC (Bld) [#/Vol] 9.8 10*3/uL 4.4-11.0 [facility] aPTTon 04-09-2025 aPTT [facility] CBC W/Diff, Automatedon 11-11 Absolute Lymph 2.25 X10 3/uL Normal 0.83-4.51 [facility] Comment on above: Performed By: #### L [id number], L100.0100, [id number], [id number], L500.4100 #### [facility] [address] [place], [address] Absolute Neut 4.0 X10 3/uL Normal 2.0-7.7 [facility] Comment on above: Performed By: #### L [id number], L100.0100, [id number], [id number], L500.4100 #### [facility] [address] [place], [address] Basophils/100 WBC (Bld) 0.9 % Normal 0-1 [facility] Comment on above: Performed By: #### L [id number], L100.0100, [id number], [id number], L500.4100 #### [facility] [address] [place], [address] Eosinophils/100 WBC (Bld) 2.3 % Normal 0-5 [facility] Comment on above: Performed By: #### L [id number], L100.0100, [id number], [id number], L500.4100 #### [facility] [address] [place], [address] Erythrocyte distribution width (RBC) [Ratio] 12.9 % Normal 11.6-14.6 [facility] Comment on above: Performed By: #### L 500.4050, L100.0100, [id number], [id number], L500.4100 #### [facility] [address] [place], [address] Hematocrit (Bld) [Volume fraction] 47.5 % Normal 40-54 [facility] Comment on above: Performed By: #### L 500.4050, L100.0100, [id number], [id number], L500.4100 #### [facility] [address] [place], [address] Hemoglobin (Bld) [Mass/Vol] 16.6 g/dL High 13.0-16.5 [facility] Comment on above: Performed By: #### L 500.4050, L100.0100, [id number], L501.9910, L500.4100 #### [facility] [address] [place], [address] IG% 0.300 Normal 0.0-0.9 [facility] Comment on above: Result Comment: IG% - Immature Granulocytes (promyelocytes, myelocytes and metamyelocytes) > 1% indicates that a LEFT SHIFT is Present. Performed By: #### L 500.4050, L100.0100, [id number], L501.9910, L500.4100 #### [facility] [address] [place], [address] Lymphocytes/100 WBC (Bld) 32.1 % Normal 19-41 [facility] Comment on above: Performed By: #### L 500.4050, L100.0100, [id number], L501.9910, L500.4100 #### [facility] [address] [place], [address] MCH (RBC) [Entitic mass] 31.3 pg Normal 27.0-32.0 [facility] Comment on above: Performed By: #### L 500.4050, L100.0100, [id number], L501.9910, L500.4100 #### [facility] [address] [place], [address] MCHC (RBC) [Mass/Vol] 34.9 g/dL Normal 32-36 [facility] Comment on above: Performed By: #### L 500.4050, L100.0100, [id number], L501.9910, L500.4100 #### [facility] [address] [place], [address] MCV (RBC) [Entitic vol] 89.6 fL Normal 80-94 [facility] Comment on above: Performed By: #### L [id number], L100.0100, [id number], L501.9910, L500.4100 #### [facility] [address] [place], [address] Monocytes/100 WBC (Bld) 7.8 % Normal 0-10 [facility] Comment on above: Performed By: #### L 500.4050, L100.0100, [id number], L501.9910, L500.4100 #### [facility] [address] [place], [address] Neutrophils/100 WBC (Bld) 56.6 % Normal 47-70 [facility] Comment on above: Performed By: #### L 500.4050, L100.0100, [id number], L501.9910, L500.4100 #### [facility] [address] [place], [address] Nucleated RBC (Bld) [#/Vol] 0 10*3/uL Normal 0-5 [facility] Comment on above: Performed By: #### L 500.4050, L100.0100, [id number], L501.9910, L500.4100 #### [facility] [address] [place], [address] Platelet mean volume (Bld) [Entitic vol] 9.5 fL Normal 6.2-12.0 [facility] Comment on above: Performed By: #### L 500.4050, L100.0100, [id number], L501.9910, L500.4100 #### [facility] [address] [place], [address] Platelets (Bld) [#/Vol] 239 10*3/uL Normal 150-450 [facility] Comment on above: Performed By: #### L 500.4050, L100.0100, [id number], L501.9910, L500.4100 #### [facility] [address] [place], [address] RBC (Bld) [#/Vol] 5.30 10*6/uL Normal 4.6-6.2 [facility] Comment on above: Performed By: #### L 500.4050, L100.0100, [id number], L501.9910, L500.4100 #### [facility] [address] [place], [address] RDW SD 42.2 fl Normal 35.1-43.9 [facility] Comment on above: Performed By: #### L 500.4050, L100.0100, [id number], L501.9910, L500.4100 #### [facility] [address] [place], [address] WBC (Bld) [#/Vol] 7.0 10*3/uL Normal 4.4-11.0 [facility] Comment on above: Performed By: #### L 500.4050, L100.0100, [id number], L501.9910, L500.4100 #### [facility] [address] [place], [address] Comprehensive Metabolic Prof ilon 11-29-2024 Albumin [Mass/Vol] 4.5 g/dL Normal 3.2-5.0 [facility] Comment on above: Performed By: #### L [id number], L100.0100, [id number], L501.9910, L500.4100 #### [facility] [address] [place], [address] Albumin/Globulin [Mass ratio] 1.3 {ratio} Normal 0.9-2.4 [facility] Comment on above: Performed By: #### L 500.4050, L100.0100, [id number], L501.9910, L500.4100 #### [facility] [address] [place], [address] ALK P 40 U/L Low 45-117 [facility] Comment on above: Performed By: #### L 500.4050, L100.0100, [id number], L501.9910, L500.4100 #### [facility] [address] [place], [address] ALT [Catalytic activity/Vol] 34 U/L Normal 16-61 [facility] Comment on above: Performed By: #### L 500.4050, L100.0100, [id number], L501.9910, L500.4100 #### [facility] [address] [place], [address] AST [Catalytic activity/Vol] 21 U/L Normal 15-37 [facility] Comment on above: Performed By: #### L 500.4050, L100.0100, [id number], L501.9910, L500.4100 #### [facility] [address] [place], [address] Bilirubin [Mass/Vol] 0.70 mg/dL Normal 0.20-1.00 [facility] Comment on above: Result Comment: For patients on eltrombopag therapy, use of Dimension [place] TBIL is not recommended. Performed By: #### L 500.4050, L100.0100, [id number], L501.9910, L500.4100 #### [facility] [address] [place], [address] BUN/CRE 20.5 RATIO High 10-20 [facility] Comment on above: Performed By: #### L 500.4050, L100.0100, [id number], L501.9910, L500.4100 #### [facility] [address] [place], [address] CA,Total 10.1 mg/dL Normal 8.5-10.1 [facility] Comment on above: Performed By: #### L [id number], L100.0100, [id number], L501.9910, L500.4100 #### [facility] [address] [place], [address] Chloride [Moles/Vol] 102 mmol/L Normal 98-107 [facility] Comment on above: Performed By: #### L 500.4050, L100.0100, L501.9985, L501.9910, L500.4100 #### [facility] [address] [place], [address] CO2 [Moles/Vol] 28.0 mmol/L Normal 21.0-32.0 [facility] Comment on above: Performed By: #### L 500.4050, L100.0100, L501.9985, L501.9910, L500.4100 #### [facility] [address] [place], [address] Creatinine [Mass/Vol] 0.98 mg/dL Normal 0.70-1.30 [facility] Comment on above: Result Comment: The validity of the calculated GFR GFRAA in patients over 70 years has not been determined. Clinical correlation is essential. Performed By: #### L 500.4050, L100.0100, L501.9985, L501.9910, L500.4100 #### [facility] [address] [place], [address] EST GFR - AA 101 mL/min Normal >60 [facility] Comment on above: Result Comment: Afri can Dutch GFR Calc Performed By: #### L 500.4050, L100.0100, L501.9985, L501.9910, L500.4100 #### [facility] [address] [place], [address] GAP 8 Normal 5-15 [facility] Comment on above: Performed By: #### L 500.4050, L100.0100, L501.9985, L501.9910, L500.4100 #### [facility] [address] [place], [address] GFR/1.73 sq M.predicted among non-blacks MDRD (S/P/Bld) [Vol rate/Area] 83 mL/min/{1.73_m2} Normal >60 [facility] Comment on above: Result Comment: Non- GFR Calc Performed By: #### L 500.4050, L100.0100, L501.9985, L501.9910, L500.4100 #### [facility] [address] [place], [address] Globulin (S) [Mass/Vol] 3.4 g/dL Normal 2.2-4.2 [facility] Comment on above: Performed By: #### L 500.4050, L100.0100, L501.9985, L501.9910, L500.4100 #### [facility] [address] [place], [address] Glucose [Mass/Vol] 123 mg/dL High 74-106 [facility] Comment on above: Result Comment: Fast ing Glucose result from 100 to 125 mg/dL suggests IMPAIRED HOMEOSTASIS per A.D.A. criteria. Performed By: #### L 500.4050, L100.0100, L501.9985, L501.9910, L500.4100 #### [facility] [address] [place], [address] Potassium [Moles/Vol] 4.2 mmol/L Normal 3.5-5.1 [facility] Comment on above: Performed By: #### L 500.4050, L100.0100, L501.9985, L501.9910, L500.4100 #### [facility] [address] [place], [address] Sodium [Moles/Vol] 138 mmol/L Normal 136-145 [facility] Comment on above: Performed By: #### L 500.4050, L100.0100, L501.9985, L501.9910, L500.4100 #### [facility] [address] [place], [address] T PROT 7.9 g/dL Normal 6.4-8.2 [facility] Comment on above: Performed By: #### L 500.4050, L100.0100, L501.9985, L501.9910, L500.4100 #### [facility] [address] [place], [address] Urea nitrogen [Mass/Vol] 20 mg/dL High 7-18 [facility] Comment on above: Performed By: #### L 500.4050, L100.0100, L501.9985, L501.9910, L500.4100 #### [facility] [address] [place], [address] Hemoglobin A1con 11-29-2024 HbA1c (Bld) [Mass fraction] 7.3 % High 3.8-5.6 [facility] Comment on above: Result Comment: Norm al < 5.7 % Prediabetic 5.7 - 6.4 % Diabetic >or= 6.5 % Please note range changes. Performed By: #### L 500.4050, L100.0100, L501.9985, L501.9910, L500.4100 #### [facility] [address] [place], [address] Lipid Profileon 11-29-2024 Cholesterol [Mass/Vol] 94 mg/dL Normal 200 [facility] Comment on above: Result Comment: <200 mg/dL Desirable 200-240 mg/dL Borderline >240 mg/dL High Risk Performed By: #### L 500.4050, L100.0100, L501.9985, L501.9910, L500.4100 #### [facility] [address] [place], [address] Cholesterol in HDL [Mass/Vol] 37 mg/dL Low [facility] Comment on above: Result Comment: The drugs N-Acetylcysteine and Metamizole may falsely depress this assay. Reference Range HDL <40 mg/dL Low HDL Cholesterol HDL >or= 60 mg/dL High HDL Cholesterol Performed By: #### L 500.4050, L100.0100, L501.9985, L501.9910, L500.4100 #### [facility] [address] [place], [address] Cholesterol in LDL [Mass/Vol] 20 mg/dL Normal 0-130 [facility] Comment on above: Performed By: #### L 500.4050, L100.0100, L501.9985, L501.9910, L500.4100 #### [facility] [address] [place], [address] Cholesterol in VLDL [Mass/Vol] 37 mg/dL Normal 5-40 [facility] Comment on above: Performed By: #### L 500.4050, L100.0100, L501.9985, L501.9910, L500.4100 #### [facility] [address] [place], [address] Triglyceride [Mass/Vol] 186 mg/dL Normal [facility] Comment on above: Result Comment: The drugs N-Acetylcysteine and Metamizole may falsely depress this assay. Serum Triglycerides Reference Interval Normal <150 mg/dL Borderline high 150 - 199 mg/dL High 200 - 499 mg/dL Very High > or = 500 mg/dL Performed By: #### L 500.4050, L100.0100, L501.9985, L501.9910, L500.4100 #### [facility] [address] [place], [address] PSA,Total - Annual Screenon 11-29-2024 PSA,TOT SCREEN 0.44 ng/mL Normal 0.00-4.00 [facility] Comment on above: Result Comment: This test was performed using the TPSA assay method for the [employer] chemistry system. Values obtained with different assay methods cannot be used interchangably. When changing PSA assays in the course of monitoring a patient, additional sequential testing should be carried out to confirm baseline values. Performed By: #### L 500.4050, L100.0100, L501.9985, L501.9910, L500.4100 #### [facility] [address] [place], [address] Vital Signs Date Time Vital Sign Value Performing Clinician Gauri donis 04-09-2025 16:27-0400 Body temperature 97.7 [degF] Josy Marrero BUMPER MACHINE OPERATOR-C Work Phone: [facility] 04-09-2025 16:27-0400 Diastolic blood pressure 84 mm[Hg] Josy Marrero BUMPER MACHINE OPERATOR-C Work Phone: [facility] 04-09-2025 16:27-0400 Heart rate 81 /min Josy Marrero BUMPER MACHINE OPERATOR-C Work Phone: [facility] 04-09-2025 16:27-0400 Respiratory rate 14 /min Josy Marrero BUMPER MACHINE OPERATOR-C Work Phone: [facility] 04-09-2025 16:27-0400 SaO2% (BldA) [Mass fraction] 98 % Josy Marrero BUMPER MACHINE OPERATOR-C Work Phone: [facility] 04-09-2025 16:27-0400 Systolic blood pressure 147 mm[Hg] Josy Marrero BUMPER MACHINE OPERATOR-C Work Phone: [facility] 04-09-2025 14:10-0400 Body mass index (BMI) [Ratio] 31.8 kg/m2 Josy Marrero BUMPER MACHINE OPERATOR-C Work Phone: [facility] 04-09-2025 14:10-0400 Body weight 106.5 kg Josy Marrero BUMPER MACHINE OPERATOR-C Work Phone: [facility] 04-09-2025 13:54-0400 Body height 182.88 cm Josy Marrero BUMPER MACHINE OPERATOR-C Work Phone: [facility] 02-20-2025 19:06-0400 Body mass index (BMI) [Ratio] 34.4 kg/m2 Josy Marrero BUMPER MACHINE OPERATOR-C Work Phone: [facility] 02-20-2025 19:06-0400 Body temperature 97.2 [degF] Josy Marrero BUMPER MACHINE OPERATOR-C Work Phone: [facility] 02-20-2025 19:06-0400 Body weight 115.21 kg Josy Marrero BUMPER MACHINE OPERATOR-C Work Phone: [facility] 02-20-2025 19:06-0400 Diastolic blood pressure 78 mm[Hg] Josy Marrero BUMPER MACHINE OPERATOR-C Work Phone: [facility] 02-20-2025 19:06-0400 Heart rate 67 /min Josy Marrero BUMPER MACHINE OPERATOR-C Work Phone: [facility] 02-20-2025 19:06-0400 Respiratory rate 18 /min Josy Marrero BUMPER MACHINE OPERATOR-C Work Phone: [facility] 02-20-2025 19:06-0400 SaO2% (BldA) [Mass fraction] 96 % Josy Marrero BUMPER MACHINE OPERATOR-C Work Phone: [facility] 02-20-2025 19:06-0400 Systolic blood pressure 130 mm[Hg] Josy Marrero BUMPER MACHINE OPERATOR-C Work Phone: [facility] Encounters Encounter Date Encounter Type Care Provider Facility Start: 04-09-2025 Evaluation and management of inpatient Dr. Bacilio Partida DO -[facility] Work Phone: Start: 04-09-2025 observation encounter Josy meyers BUMPER MACHINE OPERATOR-C Work Phone: -[facility] Start: 11-29-2024 End: 11-29-2024 ambulatory Josy Marrero BUMPER MACHINE OPERATOR Facility:[facility] Start: 06-05-2022 Patient encounter status Josy Marrero BUMPER MACHINE OPERATOR-C Work Phone: [facility] Procedures Date Procedure Procedure Detail Performing Clinician Start: 04-09-2025 Estimated creatinine clearance Josy Marrero BUMPER MACHINE OPERATOR-C Work Phone: Start: 04-09-2025 Prothrombin time Josy ayala BUMPER MACHINE OPERATOR-C Work Phone: Start: 04-09-2025 CT angiography of he ad and neck Josy Marrero BUMPER MACHINE OPERATOR-C Work Phone: Start: 04-09-2025 CT of head without contrast Josy ZULUAGA Work Phone: Plan of Treatment Date Care Activity Detail Author Start: 04-09-2025 Verification routine [facility] Start: 04-09-2025 MRI of brain without contrast Brain without Contrast [facility] Start: 04-09-2025 Hospital admission, emergency, from emergency room, medical nature [facility] Start: 04-09-2025 Admission procedure [facility] Start: 04-09-2025 [facility] Start: 04-09-2025 Thyroid stimulating hormone measurement [facility] Start: 04-09-2025 X-ray of chest, PA a nd lateral views Chest PA and Lateral [facility] Start: 04-09-2025 End: 04-09-2025 [facility] Start: 04-09-2025 Oxygen therapy [facility] Hemoglobin A1c/Hemoglobin.total in Blood [facility] Troponin T.cardiac [Mass/volume] in Serum or Plasma by High sensitivity method [facility] Troponin T.cardiac [Mass/volume] in Serum or Plasma by High sensitivity method [facility] Payers Date Payer Category Payer Self-pay 2024 Unknown [id number] Self-pay [id number] Unknown [id number] Social History Date Type Detail Facility Start: 04-09-2025 Tobacco smoking stat us GAIS Never smoked tobacco (finding) [facility] Start: 1965 Sex Assigned At Male [facility] Medical Equipment Procedure Code Equipment Code Equipment Origin al Text Equipment Identifier Dates Blood Sugar Diagnostic (Onetouch Ultra Test) strip Start: 11-30-2024 Lancets (Onetouc h Ultrasoft 2 Lancet) 30 gauge misc Start: 11-30-2024 Blood Sugar Diagnostic (Relion Prime Test Strips) strip Start: 10-27-2023 End: 11-29-2024 Blood Sugar Diagnostic (Relion Prime Test Strips) strip Start: 11-29-2024 End: 11-30-2024 Mental Status Date Assessment Result Facility 04-09-2025 Cognitive function Awake;Alert;A ppropriate;Fol lows Commands [facility] Work Phone: Discharge summary 04-09-2025 Note Date & Type Note Facility 04-09-2025 Discharge summary [facility] Radiology Diagnostic study note 04-09-2025 Note Date & Type Note Facility 04-09-2025 Radiology Diagnostic study note [facility] Imaging Services [address] [place] [address] STROKE Brain/Head without Cont MR#: [id number] Acct: [id number] Name: SUMMER MA Rep #: [id number] : 1965 M 60 From: Juan Mann MD PCP: MARGARETH Dawson Status: REG ER Study:STROKE Brain/Head without Cont Date of Exam: 04/09/25 Exam# [id number] Ordering Dr: Damaris Polanco DO PROCEDURE: STROKE BRAIN/HEAD WITHOUT CONT 04/09/2025 REASON FOR EXAM: NEURO DEFICIT, ACUTE, STROKE SUSPECTED TECHNIQUE: STROKE BRAIN/HEAD WITHOUT CONT Coronal and Sagittal reconstruction series were provided. One or more dose reduction techniques were used (e.g., Automated exposure control, adjustment of the mA and/or kV according to patient size, use of iterative reconstruction technique. RADIATION DOSE SUMMARY: CTDlvol: 47.06 mGy DLP: 943.26 mGycm COMPARISON: None FINDINGS: Brain: Within normal limits for age CSF Spaces: Normal Sinuses/Mastoids: Clear at visualized levels Bones: No skull fracture or scalp hematoma CT/STROKE Brain/Head without Cont IMPRESSION: Age consistent changes, no acute findings Reading Location: [id number] CC: MARGARETH Marrero; Dr. Harry Polanco, ~ Bruise Trimmer: Signed [facility] Radiology Diagnostic study note 04-09-2025 Note Date & Type Note Facility 04-09-2025 Radiology Diagnostic study note [facility] Imaging Services [address] [place] [address] STROKE CTA Head AND Neck W/Con MR#: [id number] Acct: [id number] Name: SUMMER MA Rep #: [id number] : 1965 M 60 From: Juan Mann MD PCP: MARGARETH Dawson Status: REG ER Study:STROKE CTA Head AND Neck W/Con Date of Exam: 04/09/25 Exam# [id number] Ordering Dr: Damaris Polanco DO PROCEDURE: STROKE CTA HEAD AND NECK W/CON 04/09/2025 REASON FOR EXAM: NEURO DEFICIT, ACUTE, STROKE SUSPECTED TECHNIQUE: STROKE CTA HEAD AND NECK W/CON Multiplanar Sagittal and Coronal images were obtained. CONTRAST: Isovue 370 VOLUME: 100 mL One or more dose reduction techniques were used (e.g., Automated exposure control, adjustment of the mA and/or kV according to patient size, use of iterative reconstruction technique). RADIATION DOSE SUMMARY: CTDlvol: 39.59 mGy DLP: 967.81 mGycm COMPARISON: CT head from earlier today FINDINGS: Aortic Arch: Normal size and branching pattern. No significant atherosclerotic plaque. Brachiocephalic and Subclavians: Unremarkable RIGHT Carotid: Right CCA: Unremarkable. Right ICA: Unremarkable. Maximum stenosis (NASCET): <10 % Right ECA: Unremarkable. LEFT Carotid: Left CCA: Unremarkable. Left ICA: Unremarkable. Maximum stenosis (NASCET): <10 % Left ECA: Unremarkable. Vertebrals: Codominant. Arise from the subclavians. Both vertebrals form the basilar. RIGHT Vertebral: Unremarkable. LEFT Vertebral: Unremarkable. Anatomy: [place] anatomy is normal. Aneurysm or avm: No intracranial aneurysms or large vascular malformations are identified. No suspicious enhancing lesion, no airway narrowing or deviation. No suspiciousadenopathy. Thyroid gland is unremarkable, lung apices are clear, incidental note is made of a prominent large left internal jugular vein CT/STROKE CTA Head AND Neck W/Con IMPRESSION: No CTA evidence of vaso occlusive disease No demonstrated aneurysm or vascular malformation Patent vertebral arteries No CTA evidence of CCA or ICA stenosis No suspicious enhancing lesion airway narrowing or deviation. Reading Location: [id number] CC: MARGARETH Marrero; Dr. Harry Polanco, ~ Bruise Trimmer: Signed [facility] Discharge summary 04-09-2025 Note Date & Type Note Facility 04-09-2025 Discharge summary Note Date/Time April 09, 2025 4:05pm [facility] Medical Records Department [address] [place] [address] Emergency Department Summary 04/09/25 MR#: [id number] Acct: [id number] Name: SUMMER MA Rep #:[id number] : 1965 60 From: Harry Polanco DO PCP: CARLOS DawsonC Status:REG ER Location: ED HPI History of Present Illness Chief Complaint: Dizziness Narrative Narrative: Patient is a 60-year-old male past medical history of type 2 diabetes, neuropathy, hypertension who presented to the emergency department chief complaint dizziness and feeling very off balance when he tries to walk. He states that he went to bed around 1:30 AM and he states that he felt fine and notes that when he woke up around 5:30 AM is when he felt off and he states thathe had to hold onto the end of the bed before continue to walk. He states that nothing like this is ever happened before. He states that he thought if he tookhis medications as the day went on things would get better but they are not. Hestates when he tried to walk in here he had to hold onto items as he felt very off balance. Patient denies any previous history of strokes denies any blood thinner medications [facility] Medical History (Updated 04/09/25 @ 16:[address] Harry Polanco DO) Erectile dysfunction Hernia Diabetic peripheral neuropathy Type 2 diabetes mellitus Home Medications ?Medication ?Instructions ?Recorded ?Last Taken ?Type cholecalciferol (vitamin D3) 25 1,000 unit PO QDAY 04/27 Unknown History mcg (1,000 unit) capsule cyanocobalamin (vitamin B-12) 1,000 mcg PO QDAY Unknown History 1,000 mcg tablet (Vitamin B-12) multivitamin,ny-ndgt-msvyqzwp 1 tab PO QDAY 05/17/18 U nknown History (Complete Multivitamin tablet) omega-3 fatty acids 1,000 mg 2,000 mg PO BID 06/10/21 Unknown History capsule (Fish Oil Concentrate) empagliflozin 25 mg-metformin ER 1 tab PO DAILY #90 ea 11/29/24 Unknown Rx 1,000 mg tablet,extended release 24hr (Synjardy XR) gabapentin 300 mg capsule 1,200 mg (4 x 300 mg) PO BID 3 11/29/24 Unknown Rx months #720 caps glimepiride 4 mg tablet 4 mg PO QAM #90 tabs 5 Unknown Rx lisinopril 10 mg tablet 10 mg PO DAILY #90 tabs 11/11 07/05 Unknown Rx metformin 1,000 mg tablet 1,000 mg PO QHS #90 tabs Unknown Rx rosuvastatin 20 mg tablet 20 mg PO DAILY #90 tabs 11/11 07/05 Unknown Rx semaglutide 2 mg/dose (8 mg/3 mL) 2 mg (0.75 mL) subcu t QWEEK 3 11/29/24 Unknown Rx subcutaneous pen injector months #9.75 mL blood sugar diagnostic (OneTouch #100 ea 11/30/24 Unkn own Rx Ultra Test strips) blood-glucose meter (OneTouch #1 ea 11/30/24 Unknown R x Ultra2 Meter) lancets 30 gauge (OneTouch #200 ea 11/30/24 Unknown Rx UltraSoft 2 Lancet) Allergy/AdvReac Type Severity Reaction Status Date / Time No Known Allergies Allergy Verified 04/09/25 13:57 Surgical History Labral tear of long head of right biceps tendon History of arthroscopic knee surgery History of rotator cuff surgery Social History Smoking Status: Never smoker ROS ROS ED ROS Narrative Constitutional: Complains of dizziness as noted above denies any headache, fever, chills Eyes: Denies change in vision double vision blurry vision Cardiovascular: Denies chest pain Respiratory: Denies shortness of breath Abdomen: Denies abdominal pain nausea vomit diarrhea : Denies urinary symptoms Neurological: Complains of difficulty ambulating denies any numbness, weakness, tingling Musculoskeletal: Denies back pain Skin: Denies any rashes or lesions EXAM Physical Exam Narrative Exam Narrative: General: Patient lying in bed rest comfortably did not appear to be acute distress Head: Atraumatic, normocephalic Eyes: PERRL bilaterally, EOMI blood, no conjunctival injection noted Neck: Soft, supple, trachea midline Cardiovascular: Regular rate and rhythm no murmurs gallops rubs noted Respiratory: Clear to auscultation bilaterally no rales rhonchi or wheezes noted Abdomen: Soft, nondistended, nontender to palpation Extremities: +5/5 strength noted in the bilateral upper and lower extremities, radial pulses +2/4 in the bilateral extremities, no pedal edema on exam Neurological: Patient following commands knew that he was at [facility] year is 2024. NIH of 0 GCS 15 Skin: Warm, dry contact no rashes or lesions noted Const Vital Signs: 04/09/25 13:54 04/09/25 14:11 04/09/25 14:17 Temperature 98.7 F Temperature Source Temporal Pulse Rate 86 83 Respiratory Rate 16 16 Blood Pressure 154/82 H 142/87 H Blood Pressure Mean 106 105 Pulse Ox 98 93 94 Oxygen Delivery Method Room Air Room Air 04/09/25 14:32 04/09/25 14:47 Temperature Temperature Source Pulse Rate 73 Respiratory Rate 16 Blood Pressure 142/83 H 132/74 H Blood Pressure Mean 102 93 Pulse Ox 94 95 Oxygen Delivery Method Room Air MDM MDM MDM Narrative Medical decision making narrative: Patient is a 60-year-old male who presented to the emergency department chief complaint of dizziness. On the differential diagnose includes but limited to intracranial hemorrhage, hypoglycemia, electrolyte normality, cardiac arrhythmia, posterior circulation stroke, ischemic stroke. Once workup is obtained reviewed he will be reevaluated. Patient is not a tenecteplase candidate as his symptoms started around 5:30 A. M and his last known well was 1:30 AM There was ultimately a delay in telehealth evaluation of the patient secondary to volume issues Ultimately patient was evaluated by teleneurologist Dr. Feliciano and they are recommending admission for further stroke workup and states that the patient is not a tenecteplase candidate. Patient was given 325 aspirin. Patient's CBC reviewed showed no evidence leukocytosis white blood count normal 9.8, he was 15.2, platelet count of 219. Patient INR normal at 1.1, PT of 14.1. Patient sodium normal 136, potassium normal 3.9, creatinine normal at 0.85. Patient's troponin was 12, EKG was reviewed and showed sinus rhythm with a rate of 84 beats per minutes. Patient's glucose was noted to be 216. Patient CT head brain without contrast did not show any acute findings. Patient chest x-ray images pending at this point time. Patient's CTA head and neck showed no evidence of large vessel occlusion. At this point time will discuss case with hospitalist for admission. Spoke with hospitalist Dr. Partida who accept patient for admission. Patient notified as well as significant other at bedside all question and concerns answered. They are agreeable with this plan Lab Data Labs: Laboratory Results - last 24 hr 04/09/25 04/09/25 04/09/25 13:54 14:05 14:35 WBC 9.8 RBC 4.60 Hgb 15.2 Hct 42.4 MCV 92.2 MCH 33.0 H MCHC 35.8 RDW Std Deviation 42.7 RDW Coeff of Brody 12.8 Plt Count 219 MPV 9.1 Immature Gran % (Auto) 0.600 Neut % (Auto) 69.6 Lymph % (Auto) 20.8 Webster % (Auto) 7.4 Eos % (Auto) 1.1 Baso % (Auto) 0.5 Absolute Neuts (auto) 6.8 Absolute Lymphs (auto) 2.03 Nucleated RBC % 0 PT Cancelled 14.1 INR Cancelled 1.1 APTT Cancelled 24.6 Sodium 136 Potassium 3.9 Chloride 103 Carbon Dioxide 20.0 L Anion Gap 14 BUN 11 Creatinine 0.85 Estim Creat Clear Calc 115.09 Est GFR (MDRD) Non-Af 99 BUN/Creatinine Ratio 12.5 Glucose 216 H Calcium 9.6 Troponin T High Sens 12 POC Glucose 193 H Radiography Diagnostic Testing: Clinical Impression(s) from Imaging Studies Brain CT 04/09/25 13:56 IMPRESSION: Age consistent changes, no acute findings Reading Location: [facility] Head/Neck CTA 04/09/25 13:57 IMPRESSION: No CTA evidence of vaso occlusive disease No demonstrated aneurysm or vascular malformation Patent vertebral arteries No CTA evidence of CCA or ICA stenosis No suspicious enhancing lesion airway narrowing or deviation. Reading Location: [facility] Discharge Plan Triage Chief Complaint: Dizziness ED Provider: Harry Polanco Dx/Rx/DC Orders Clinical Impression: Dizziness, Diabetes type 2, uncontrolled, Hypertension, Neuropathy Prescriptions: No Action cholecalciferol (vitamin D3) 1,000 unit capsule 1,000 unit PO QDAY cyanocobalamin (vitamin B-12) [Vitamin B-12] 1,000 mcg tablet 1,000 mcg PO QDAY multivitamin,df-buvm-hvcrlmug [Complete Multivitamin] tablet 1 tab PO QDAY omega-3 fatty acids [Fish Oil Concentrate] 1,000 mg capsule 2,000 mg PO BID Synjardy XR 25-1,000 mg tablet, IR - ER, biphasic 24hr 1 tab PO DAILY Qty: 90 4RF gabapentin 300 mg capsule 1,200 mg PO BID 90 Days Qty: 720 4RF glimepiride 4 mg tablet 4 mg PO QAM Qty: 90 4RF Rx Instructions: administer with breakfast lisinopril 10 mg tablet 10 mg PO DAILY Qty: 90 4RF metformin 1,000 mg tablet 1,000 mg PO QHS Qty: 90 4RF rosuvastatin 20 mg tablet 20 mg PO DAILY Qty: 90 4RF semaglutide 2 mg/dose (8 mg/3 mL) pen injector 2 mg subcut QWEEK 90 Days Qty: 9.75 3RF (DME) OneTouch Ultra Test Strip See Rx Instructions .Route Qty: 100 12RF Rx Instructions: use 2 x a day , fasting and 1-2 hrs after eating (DME) blood-glucose meter [OneTouch Ultra2 Meter] Misc See Rx Instructions .Route Qty: 1 0RF Rx Instructions: As directed (DME) lancets [OneTouch UltraSoft 2 Lancet] 30 gauge misc See Rx Instructions .Route Qty: 200 3RF Rx Instructions: use 2 x a day Primary Care Provider: Josy Marrero NP Referrals: Josy Marrero NP, BUMPER MACHINE OPERATOR-C [Primary Care Provider] - Print Language: Hong [place]er What to do if you have Problems For any increased pain, shortness of breath, bleeding, nausea or vomiting, chestpain, or any unexpected problems, contact your Primary Care Provider. Call [facility] ([phone]) or report to the closest Emergency Room. Call 911 if necessary. 04/09/25 1605 <Electronically signed by Harry Polanco DO> Cosigner Signature (if applicable): CC: BUMPER MACHINE OPERATOR-C Josy Marrero ~ Signed [facility] Work Phone: Evaluation note 02-20-2025 Note Date & Type Note Facility 02-20-2025 Evaluation note Diagnosis Onset Date Resolution Diabetes type 2, uncontrolled acute February 20, 2025 6 :58pm Tendonitis of shoulder, right acute February 20, 2025 6 :58pm Diabetes type 2, uncontrolled acute April 09, 2025 4:02pm Dizziness acute April 09 4:02pm Neuropathy acute April 09 4:02pm Hypertension chronic April 09, 2 025 4:02pm [facility] Work Phone: Reason for referral (narrative) Note Date & Type Note Facility Reason for referral (narrative) No reason for referral information available [facility] Work Phone: Summary Purpose Family History No Family History Records Found Advance Directives Advance Directive Response Recorded Date/ Time Do you have a Healthcare Power of Supervisor Electronics [employer]? No April 09, 2025 2:15pm Chief Complaint and Reason for Visit Chief Complaint Admit Date Shoulder pain(Trigger injection) February 6:58pm STROKE LIKE SYMPTOMS April 09, 2025 4:0 2pm Reason for Visit Admit Date Diabetes type 2, uncontrolled February 20, 2025 6:58pm Tendonitis of shoulder, right February 20, 2025 6:58pm Diabetes type 2, uncontrolled April 09, 2025 4:02pm Dizziness April 09, 2025 4:02 pm Neuropathy April 09, 2025 4:02 pm Hypertension April 09, 2025 4:02 pm Additional Source Comments (unrecognized sect ion and content) No Status Records Found INFORMATION SOURCE (unrecogn ized section and content) DATE CREATED AUTHOR 12/13/2024 [facility] Care Teams (unrecognized sec tion and content) Team Status: Active Member Role/Relationship Status Dates Josy Marrero NP, NP-C Primary Care Provider Active Team Status: Inactive Member Role/Relationship Status Dates MARGARETH Dawson NP Primary Care Provider Active Start: February 20, 2025 End: February 20, 2025 MARGARETH Dawson NP Attending Provider Active Start: February 20, 2025 End: February 20, 2025 MARGARETH Dawson NP Referring Provider Active Start: February 20, 2025 End: February 20, 2025 Team Status: Active Member Role/Relationship Status Dates Josy Marrero BUMPER MACHINE OPERATOR, BUMPER MACHINE OPERATOR-C Primary Care Provider Active Start: April 09, 2025 Dr. Harry Polanco , DO Emergency Provider Active Start: April 09, 2025 Dr. Bacilio Partida , DO Admit Provider Active Start: April 09, 2025 Dr. Bacilio Partida , DO Attending Provider Active Start: April 09, 2025 Dr. Bacilio Partida , DO Referring Provider Active Start: April 09, 2025 Goals (unrecognized section and content) Goals may be documented in a n alternate section FOR RECORDS PERTAINING TO PATIENTS WHO ARE OR HAVE BEEN ENROLLED IN A CHEMICAL DEPENDENCY/SUBSTANCEABUSE PROGRAM, SOME INFORMATION MAY BE OMITTED. This clinical summary was aggregated from multiple sources. Caution should be exercised in using it in the provision of clinical care. This summary normalizes information from multiple sources, and as a consequence, information in this document may materially change the coding, format and clinical context of patient data. In addition, data may be omitted in some cases. CLINICAL DECISIONS SHOULD BE BASED ON THE PRIMARY CLINICAL RECORDS. [employer] provides no warranty or guarantee of the accuracy or completeness of information in this document.
[2025-04-10 03:00] VITALS: BP 127/84; PULSE 78; RESP 16; TEMP 36.6; O2SAT 94
[2025-04-10 05:00] VITALS: BMI 34.8
[2025-04-10 06:27] LABS: Hematocrit 39.2 % (40-54); Hemoglobin 13.8 g/dL (13.0-16.5); Mean Corp Hgb Conc 35.2 g/dL (32-36); Mean Corpuscular Volume 92.0 fL (80-94); Mean Platelet Vol. 9.0 fl (6.2-12.0); Platelet Count 187 K/mm3 (150-450); RBC Distribution Width CV 12.8 % (11.6-14.6); RBC Distribution Width SD 42.7 fl (35.1-43.9); Red Blood Count 4.26 M/mm3 (4.6-6.2); White Blood Count 6.3 K/mm3 (4.4-11.0)
[2025-04-10 06:54] LABS: Anion Gap 11 (5-15); BUN 9 mg/dL (4-19); BUN/Creat Ratio 12.5 RATIO (10-20); Calcium,Total 8.9 mg/dL (7.6-11.0); Carbon Dioxide 22.7 mmol/L (21.0-32.0); Chloride 105 mmol/L (98-108); Cholesterol 91 mg/dL (<=200); Estimated Creatinine Clearance 136.29 ml/min (50-250); Glucose 100 mg/dL (70-99); Low Density Lipoprotein Calc. 38 mg/dL; Potassium 4.0 mmol/L (3.3-5.1); Triglycerides 89 mg/dL; Very Low Density Lipoprotein 18 mg/dL (5-40); cholesterol:hdl ratio screen 2.60
[2025-04-10 07:20] VITALS: O2SAT 93
--- NOTE | 2025-04-10 09:56 | CON.PCM.NE_ITS ---
Assessment and Plan: Neuro Assessment/Plan SUMMER MA is a 60 M with a past medical history of HTN DM2. HLD, being evaluated by Teleneurology for acute onset dizziness transitioning to headache. This was an atypical headache for patient but events seem to have been triggered after being exposed to sunlight. Currently dizziness improved, headache still present. Symptoms atypical for cerebrovascular event but lasted long enough that MRI should have been revealing. At this time symptoms are not consistent with stroke and improvement with headache treatment suggests more vestibular migraine. Appropriate for patient to be evaluated for stroke given his vascular risk factors and atypical presentation however. Recommend additional migraine cocktails. Exam is largely nonfocal without evidence for persistent peripheral vertigo. Diagnosis: likely migraine Plan: - migraine cocktail - 30mg IV toradol, 25mg PO benadryl, and 10mg PO compazine Followup with Neurology in 6-8 weeks if recurrent symptoms. I personally attended this patient and spent a total time of 45minutes evaluating this patient including clinical assessment, review of chart, medical history imaging, and determining appropriate treatment and workup. HPI Consult Data Date of Consult: 04/12/25 HPI Narrative HPI Narrative: SUMMER MA, is a 60 M who presented to [facility] ED on 04/09/2025 with dizziness and disequilibrium. 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 Patient went to bed around 1:30 AM and had no issues at that time. However when he woke up around 5:30 AM he felt dizzy. When he got out of bed he had difficulty with balance and ambulation without holding onto something. Only other time he has felt like this was when he was initially diagnosed with diabetes about 10 years ago and his blood sugars were very high. The symptoms did not improve quickly so he called EMS and was brought in for further evaluation. In the ED he was mildly hypertensive to the 140s and 150s systolic but otherwise hemodynamically stable on room air. CBC and BMP were benign. Glucose 216 but notably last A1c was 7.3% in November and his A1c values have typically been between 7 [address] 8%. [address] brain and CTA head/neck were unremarkable. EKG showed normal sinus rhythm, no ischemic changes. Was evaluated by teleneurology who recommended admission for stroke workup. Hospitalist was then contacted for admission. I saw the patient at bedside in the ED. Patient was pleasant and sitting back comfortably in bed, in no acute distress. Reports very mild dizziness at rest, improved from this morning. Has not gotten out of bed since arrival to the ED. He denies any recent illnesses. Lives at home and typically has good functional status at baseline. He works full-time and was concerned about missing work with hospitalization but was agreeable to coming in. No other acute concerns noted. Will be admitted for further management. Neurologic History Currently no dizziness, started feeling better last night in the hospital. Patient was at work when symptoms started, noted it was really bad when walking outside, no headache at that time but had headache that started last night. Noted numbness on the L side of pinky for a few days. Currently BENNETT 5/10, was a 7/10 at worst. BENNETT feels like a throbbing sensation. No nausea, no diplopia, no photophobia. No ringing in ears, no hearing loss. Re the dizziness when he first woke up was his normal blood sugar related dizziness. It's more a neuropathy sensation and that was not the dizziness that bothered him and brought him to the hospital. Dizziness was described as a sponge and suddenly felt weak all over. Also had some intermittent dysequilibrium that got better. No new medications of late. Did not pass out and he states he could have passed out. Exam -? General: Laying comfortably in bed; in no acute distress. -? HENT: Normal oropharynx and mucosa. Normal external appearance of ears and nose. Exophthalmos. -? Neck: Supple, no pain or tenderness -? CV:? No peripheral edema. -? Pulmonary:? Normal respiratory effort. -? Ext: No cyanosis, edema, or deformity -? Skin: No rash. Normal palpation of skin.? -? Musculoskeletal: full range of motion; no joint tenderness. Normal digits and nails by inspection. No clubbing. -? NEURO: -? Mental Status: The patient was alert and oriented to time, place, and person. Normal recent/remote memory, concentration, and general fund of knowledge. -? Language: speech is clear.? Naming, repetition, fluency, and comprehension intact. -? Cranial Nerves: PERRL 3 mm/brisk. EOMI, visual han full, slight nasolabial fold flattening on the L that pt states is baseline, facial sensation intact, hearing intact, tongue midline, no evidence of atrophy or fibrillations. No nystagmus -? Motor: normal bulk, tone, and strength throughout. No pronator drift or satelliting. Upper and lower extremities equal bilaterally. -? Detailed strength exam as performed by the nurse/GEE and witnessed by the physician: l R L SA 5 5 EE EF 5 5 WE WF Press Assistant 5 5 HF KE KF 5 5 DF 5 5 PF -? Tone: is normal and bulk is normal -? Sensation- Intact to light touch bilaterally -? Coordination: No dysmetria on [id number]-[id number], finger follow finger or [id number]. -? Gait- Gait initiation was normal. Narrow base with good heel strike and stride length was observed during ambulation. Turns were in stride. Romberg was normal. [facility] Medical History (Updated 04/09/25 @ 16:[address] Harry Polanco, DO) Non-smoker Erectile dysfunction Hernia Diabetic peripheral neuropathy Type 2 diabetes mellitus Home Medications ?Medication ?Instructions ?Recorded ?Last Taken ?Type cholecalciferol (vitamin D3) 25 1,000 unit PO QDAY sup plement 05/17/18 Unknown History mcg (1,000 unit) capsule cyanocobalamin (vitamin B-12) 1,000 mcg PO QDAY supple ment 05/17/18 Unknown History 1,000 mcg tablet (Vitamin B-12) multivitamin,hn-wesz-vhujihie 1 tab PO QDAY supplement 05/17/18 Unknown History (Complete Multivitamin tablet) omega-3 fatty acids 1,000 mg 2,000 mg PO BID supplemen t 06/10/21 Unknown History capsule (Fish Oil Concentrate) empagliflozin 25 mg-metformin ER 1 tab PO DAILY diabet es #90 ea 11/29/24 Unknown Rx 1,000 mg tablet,extended release 24hr (Synjardy XR) gabapentin 300 mg capsule 1,200 mg (4 x 300 mg) PO BID 11/29/24 Unknown Rx neuropathy 3 months #720 caps glimepiride 4 mg tablet 4 mg PO QAM diabetes #90 tab s 11/29/24 Unknown Rx lisinopril 10 mg tablet 10 mg PO DAILY Blood pressur e #90 11/29/24 Unknown Rx tabs metformin 1,000 mg tablet 1,000 mg PO QHS diabetes #90 tabs 11/29/24 Unknown Rx rosuvastatin 20 mg tablet 20 mg PO DAILY cholesterol # 90 tabs 11/29/24 Unknown Rx semaglutide 2 mg/dose (8 mg/3 mL) 2 mg (0.75 mL) subcu t QWEEK 11/29/24 Unknown Rx subcutaneous pen injector diabetes 3 months #9.75 mL blood sugar diagnostic (OneTouch #100 ea 11/30/24 Unkn own Rx Ultra Test strips) blood-glucose meter (OneTouch #1 ea 11/30/24 Unknown R x Ultra2 Meter) lancets 30 gauge (OneTouch #200 ea 11/30/24 Unknown Rx UltraSoft 2 Lancet) Allergy/AdvReac Type Severity Reaction Status Date / Time No Known Allergies Allergy Verified 04/09/25 13:57 Surgical History Labral tear of long head of right biceps tendon History of arthroscopic knee surgery History of rotator cuff surgery Social History Smoking Status: Never smoker Vital Signs Vital Signs Vital Signs: 04/09/25 13:54 04/09/25 14:11 04/09/25 14:17 Temperature 98.7 F Temperature Source Temporal Pulse Rate 86 83 Respiratory Rate 16 16 Respiratory Effort Respiratory Depth Respiratory Pattern Blood Pressure 154/82 H 142/87 H Blood Pressure Mean 106 105 Blood Pressure Source Blood Pressure Position Blood Pressure Location Pulse Ox 98 93 94 Oxygen Delivery Method Room Air Room Air 04/09/25 14:32 04/09/25 14:47 04/09/25 15:30 Temperature 97.8 F Temperature Source Oral Pulse Rate 73 82 Respiratory Rate 16 14 Respiratory Effort Respiratory Depth Respiratory Pattern Blood Pressure 142/83 H 132/74 H 137/81 H Blood Pressure Mean 102 93 99 Blood Pressure Source Blood Pressure Position Blood Pressure Location Pulse Ox 94 95 97 Oxygen Delivery Method Room Air Room Air 04/09/25 16:00 04/09/25 16:27 04/09/25 16:38 Temperature 98.7 F 97.7 F L 98.0 F Temperature Source Oral Oral Pulse Rate 78 81 76 Respiratory Rate 16 14 18 Respiratory Effort Respiratory Depth Respiratory Pattern Blood Pressure 144/78 H 147/84 H 147/84 H Blood Pressure Mean 100 105 105 Blood Pressure Source Monitor Blood Pressure Position Semi-Fowlers Blood Pressure Location Right Arm Pulse Ox 99 98 98 Oxygen Delivery Method Room Air Room Air 04/09/25 21:00 04/09/25 21:00 04/09/25 22:00 Temperature 98.1 F 98.1 F Temperature Source Oral Oral Pulse Rate 71 71 Respiratory Rate 16 16 Respiratory Effort Normal Respiratory Depth Normal Respiratory Pattern Normal Blood Pressure 124/79 H 124/79 H Blood Pressure Mean 94 94 Blood Pressure Source Monitor Blood Pressure Position Semi-Fowlers Blood Pressure Location Right Arm Pulse Ox 94 94 Oxygen Delivery Method Room Air Room Air Room Air 04/10/25 03:00 04/10/25 04:15 Temperature 97.9 F Temperature Source Oral Pulse Rate 78 Respiratory Rate 16 Respiratory Effort Normal Respiratory Depth Normal Respiratory Pattern Normal Blood Pressure 127/84 H Blood Pressure Mean 98 Blood Pressure Source Blood Pressure Position Blood Pressure Location Pulse Ox 94 Oxygen Delivery Method Room Air Room Air Weight Weight: 116.5 kg Body Mass Index (BMI) 34.8 EEG Results Procedure Details EEG Procedure Details: SUMMER MA is a 60 year old M with a past medical history of , who presents for evaluation of Electroencephalogram on DATE at TIME Lab / Micro Data 04/10/25 05:50 04/10/25 05:50 Labs: Laboratory Results - last 24 hr 04/09/25 13:54: POC Glucose 193 H 04/09/25 14:05: WBC 9.8, RBC 4.60, Hgb 15.2, Hct 42.4, MCV 92.2, MCH 33.0 H, MCHC 35.8, RDW Std Deviation 42.7, RDW Coeff of Brody 12.8, Plt Count 219, MPV 9.1, Immature Gran % (Auto) 0.600, Neut % (Auto) 69.6, Lymph % (Auto) 20.8, [place] % (Auto) 7.4, Eos % (Auto) 1.1, Baso % (Auto) 0.5, Absolute Neuts (auto) 6.8, Absolute Lymphs (auto) 2.03, Nucleated RBC % 0, PT Cancelled, INR Cancelled, APTT Cancelled, Sodium 136, Potassium 3.9, Chloride 103, Carbon Dioxide 20.0 L, Anion Gap 14, BUN 11, Creatinine 0.85, Estim Creat Clear Calc 115.09, Est GFR (MDRD) Non-Af 99, BUN/Creatinine Ratio 12.5, Glucose 216 H, Hemoglobin A1c 7.2 H , Calcium 9.6, Troponin T High Sens 12, TSH 1.130 04/09/25 14:35: PT 14.1, INR 1.1, APTT 24.6 04/09/25 17:03: Troponin T Hi Sens 2 Hr 10 04/09/25 19:43: Troponin T Hi Sens 4Hr 10 04/09/25 22:05: POC Glucose 95 04/10/25 05:50: WBC 6.3, RBC 4.26 L, Hgb 13.8, Hct 39.2 L, MCV 92.0, MCH 32.4 H, MCHC 35.2, RDW Std Deviation 42.7, RDW Coeff of Brody 12.8, Plt Count 187, MPV 9.0, Sodium 139, Potassium 4.0, Chloride 105, Carbon Dioxide 22.7, Anion Gap 11, BUN 9, Creatinine 0.75, Estim Creat Clear Calc 136.29, Est GFR (MDRD) Non-Af 103, BUN/Creatinine Ratio 12.5, Glucose 100 H, Calcium 8.9, Triglycerides 89, Cholesterol 91, LDL Cholesterol, Calc 38, VLDL Cholesterol 18, HDL Cholesterol 35 L, Cholesterol/HDL Ratio 2.60 04/10/25 06:17: POC Glucose 112 H Imaging Radiology Impression Brain CT 04/09/25 13:56 IMPRESSION: Age consistent changes, no acute findings Reading Location: [id number] Head/Neck CTA 04/09/25 13:57 IMPRESSION: No CTA evidence of vaso occlusive disease No demonstrated aneurysm or vascular malformation Patent vertebral arteries No CTA evidence of CCA or ICA stenosis No suspicious enhancing lesion airway narrowing or deviation. Reading Location: [facility] Brain MRI 04/09/25 16:08 IMPRESSION: No acute intracranial abnormality. Reading Location: [id number] Active Medications Active Medications Active Medications: Current Medications Generic Name Dose Route Start Last Admin Trade Name Freq PRN Reason Stop Dose Admin Acetaminophen 650 mg 04/09/25 17:07 04/10/25 04:47 Acetaminophen 325 Mg Tablet PO 650 mg Q6H PRN PRN Administration Pain 1-10 Or Fever>100.7 Aspirin 81 mg 04/10/25 08:00 Aspirin 81 Mg Tab.Chew PO BREAKFAST CHAO Atorvastatin Calcium 40 mg 04/09/25 22:00 04/09/25 22:13 Atorvastatin Calcium 40 Mg Tablet PO 40 mg QHS CHAO Administration Cholecalciferol 25 mcg 04/10/25 10:00 Cholecalciferol (Vit D3) 25 Mcg Tablet (1,000 Units) PO DAILY CHAO Cyanocobalamin 1,000 mcg 04/10/25 10:00 Cyanocobalamin 500 Mcg Tablet PO DAILY CHAO Gabapentin 1,200 mg 04/09/25 22:00 04/09/25 22:13 Gabapentin 400 Mg Capsule PO 1,200 mg BID CHAO Administration Glucagon 1 mg 04/09/25 17:07 Glucagon 1 Mg/Ml Syringe IM X1 PRN Hypoglycemia Protocol Hydralazine HCl 5 mg 04/09/25 17:07 Hydralazine 20 Mg/Ml Vial IV 04/10/25 17:07 Q30M PRN maintain BP parameters with HR <60 Sodium Chloride 250 mls @ 15 mls/hr 04/09/25 16:44 IV .[id number] PRN Saline Flush Sodium Chloride 250 mls @ 15 mls/hr 04/09/25 16:44 IV .[id number] PRN Additional IVPB Infusion Dextrose 250 mls @ 0 mls/hr 04/09/25 17:07 Dextrose 10%-Water IV .Q0M PRN HYPOGLYCEMIA Protocol As Directed Insulin Human Lispro 0 unit 04/09/25 22:00 04/10/25 06:23 Insulin Lispro 100 Unit/Ml Insuln.Pen SC Not Given ACHS [facility] Protocol Labetalol HCl 20 mg 04/09/25 13:56 Labetalol 20 Mg/4 Ml Vial IV 04/10/25 13:57 X1 PRN BLOOD PRESSURE Labetalol HCl 10 - 20 mg 04/09/25 17:07 Labetalol 20 Mg/4 Ml Vial IV 04/10/25 17:07 Q10M PRN PRN maintain BP parameters with HR >/=60 Melatonin 3 mg 04/09/25 17:07 Melatonin 3 Mg Tablet PO QHS PRN PRN INSOMNIA Multivitamins 1 tablet 04/10/25 08:00 Multivitamins,Therapeutic [facility] Ondansetron HCl 4 mg 04/09/25 17:07 Ondansetron 4 Mg/2 Ml Vial IV Q8H PRN PRN NAUSEA/VOMITING Sodium Chloride 10 - 40 ml 04/09/25 16:44 0.9 % Nacl (Sterile) Posiflush 10 Ml IV UD PRN Port access or dressing change Sodium Chloride 10 - 40 ml 04/09/25 16:44 0.9% Saline Lock 10 Ml Syringe IV UD PRN Midline Flush Sodium Chloride 10 - 40 ml 04/09/25 16:44 0.9% Saline Lock 10 Ml Syringe IV UD PRN SALINE FLUSH NIHSS NIHSS Nursing Documentation NIHSS Nursing Documentation: NIHSS: Ischemic Stroke/TIA Start: 04/09/25 17:07 Text: For PCU Patients: NIH and Neuro Check every 4 Status: Complete hours, PRN and with change in RN caregiver. Freq: [id number] Protocol: Activity Type Activity Date Activity User E-sign Co-sign Detail Recorded Client Recorded Date Recorded By Document 04/09/25 16:40 [id number] 04/09/25 17:18 04/09/25 16:40 NIH Stroke Scale [NIHSS] A score of 0 is normal or asymptomatic . Total possible score is 42. Inpatient: RN or Physician to activate a stroke alert for onset of new stroke symptoms or with NIHSS increase >/= 3 points. Following change in neurological status, NIHSS will be performed per physician order or more frequently PRN. -1a. Level of Consciousness 0 - Alert; keenly responsive -1b. LOC Questions 0 - Answers BOTH questions correctly -1c. LOC Commands 0 - Performs BOTH tasks correctly -2. Best Gaze 0 - Normal -3. Visual 0 - No visual loss -4. Facial Palsy 0 - Normal symmetrical movements -5a. Left Arm 0 - No drift; arm holds 90 ( or 45) degrees for full 10 seconds -5b. Right Arm 0 - No drift; arm holds 90 ( or 45) degrees for full 10 seconds -6a. Left Leg 0 - No drift; leg holds 30- degree position for full 5 seconds -6b. Right Leg 0 - No drift; leg holds 30- degree position for full 5 seconds -7. Limb Ataxia 0 - Absent -8. Sensory 0 - Normal; no sensory loss -9. Best Language 0 - No aphasia; normal -10. Dysarthria 0 - Normal -11. Extinction and Inattention 0 - No abnormality -Total 0 Query Text:A score of 0 is normal or asymptomatic. Total possible score is 42 . ED: Notify Physician for NIHSS increase by > / = 3 points. Inpatient: RN or Physician to activate a stroke alert for NIHSS increase of > / = 3 points. Coma Scale [Assess] -Eye Opening Spontaneous -Motor Obeys Commands -Verbal Oriented [Total] -Coma Scale Total 15
[2025-04-10 10:14] VITALS: BP 129/74; PULSE 74; RESP 16; TEMP 36.6; O2SAT 95
[2025-04-10] MEDS: Cholecalciferol (VIT D3) 25 MCG TABLET (1,000 UNITS) PO (10:19)
[2025-04-10 12:14] VITALS: BMI 34.8
--- NOTE | 2025-04-10 13:58 | CASEMGMT ---
SW did not complete a PHQ9 as patient did not have a stroke. Pauline GRCAE
--- NOTE | 2025-04-10 13:59 | PCM.DC.SUM ---
Providers Date of Admission: 04/09/25 Date of Discharge: 04/10/25 Primary Care Physician: MARGARETH Dawson Consultations 04/09/25 17:07 Consult: Tele-Neurology Routine Consulting Provider: [facility] Reason for Consult: Acute Ischemic Stroke/TIA EMERGENT Consult: No MD Notified: Yes Date Notified: 04/09/25 Time Notified: 17:40 Method of Notification: Answering Service Nursing Unit Staff Notify [facility] of Tele-Neurology Consult: Yes Reason For Visit: STROKELIKE SYMPTOMS Diagnosis Discharge Diagnosis (1) Dizziness: Status: Acute Code(s): R42 - Dizziness and giddiness Medications at Discharge Home Medications cholecalciferol (vitamin D3) 25 mcg (1,000 unit) capsule 1,000 unit PO QDAY 05/17/18 cyanocobalamin (vitamin B-12) 1,000 mcg tablet (Vitamin B-12) 1,000 mcg PO QDAY 05/17/18 multivitamin,vr-gmwo-bszavsys (Complete Multivitamin tablet) 1 tab PO QDAY 05/17/18 omega-3 fatty acids 1,000 mg capsule (Fish Oil Concentrate) 2,000 mg PO BID 06/10/21 empagliflozin 25 mg-metformin ER 1,000 mg tablet,extended release 24hr (Synjardy XR) 1 tab PO DAILY #90 ea 11/29/24 gabapentin 300 mg capsule 1,200 mg (4 x 300 mg) PO BID 3 months #720 caps 11/29/24 glimepiride 4 mg tablet 4 mg PO QAM #90 tabs 11/29/24 lisinopril 10 mg tablet 10 mg PO DAILY #90 tabs 11/29/24 metformin 1,000 mg tablet 1,000 mg PO QHS #90 tabs 11/29/24 rosuvastatin 20 mg tablet 20 mg PO DAILY #90 tabs 11/29/24 semaglutide 2 mg/dose (8 mg/3 mL) subcutaneous pen injector 2 mg (0.75 mL) subcut QWEEK 3 months #9.75 mL 11/29/24 blood sugar diagnostic (OneTouch Ultra Test strips) #100 ea 11/30/24 blood-glucose meter (OneTouch Ultra2 Meter) #1 ea 11/30/24 lancets 30 gauge (OneTouch UltraSoft 2 Lancet) #200 ea 11/30/24 Hospital Course Operations None Procedures 2-D Echocardiogram and - (CT brain/CTA head neck/MRI brain ) Summary of Care Provided Minutes Spent on Discharge: 30 Hospital Course: Mr. Reis is a 60-year-old white male who presented to the emergency department on 04/09/2025 with a chief complaint of dizziness and disequilibrium. Patient got out of bed about 5:30 AM and felt dizzy. He had difficulty with balance and ambulation without moving onto something. He stated he had a episode of this previously when his blood sugars were markedly elevated and he was diagnosed with diabetes however this was entirely similar to that. He had no nausea or vomiting. Vital signs on presentation showed temperature 97.7, heart rate 86, respiratory 18, blood pressure 154/82 and pulse ox 90%. CBC was unremarkable. Chemistry panel was unremarkable other than hyperglycemia with a blood sugar of 216. Troponin was normal. CT of the brain was unremarkable for acute findings. CTA of the head and neck was unremarkable for any acute findings or chronic occlusions. There was concern for stroke via telestroke in the emergency department and they recommended TIA/stroke workup with admission. He was admitted to PCU with stroke order set. MRI was ordered and negative for any acute infarct. Echocardiogram was performed and pending at the time of discharge. He was evaluated by neurology on the day of discharge. At the time of their evaluation his dizziness was gone and he actually started feeling better than before. He was complaining of a headache and was given Tylenol. They thought this was most likely a migraine and recommended a migraine cocktail however his headache had resolved by the time of my evaluation so we did not pursue migraine cocktail. They also recommended a 30-day event monitor to ensure that this was not related to any cardiac arrhythmia. He was monitored on telemetry during his hospital course and had negative arrhythmia during that time period. Given his symptoms were resolved, headache resolved and he was back to his baseline we discharged him home with no medication changes in stable condition on 04/10/2025. He is to follow-up with his primary care physician within the next 1 to 2 weeks and neurology within the next 2 to 3 months. Discharge diagnoses: Disequilibrium Dizziness Headache-suspected migraine DM-2-A1c 7.2 Hyperlipidemia-LDL 38 Essential hypertension Vitamin D deficiency Diabetic neuropathy Obesity Physical Exam Const alert, oriented x3, no apparent distress, no limitations, healthy appearing and well nourished; Negative for average body habitus Constitutional Narrative: Obese, upper middle-aged male, appears comfortable, watching television, nontoxic General Appearance: cooperative, comfortable, well kempt and well developed Exam Limitations: no limitations Nutritional Appearance: obese HEENT normocephalic, head/scalp atraumatic, hearing grossly normal bilaterally and moist oral mucous membranes HEENT Narrative: Mallampati 3, no thrush Resp normal respiratory effort, normal air movement, no retractions, no use of accessory muscles and clear to auscultation bilaterally Auscultation: Negative for rales, rhonchi or wheezes Cardio regular rate, regular rhythm, S1 normal heart sound, S2 normal heart sound, no murmurs, no rub, no gallops and no clicks GI normal to inspection, nondistended, normoactive bowel sounds, soft to palpation and non-tender Extremity no clubbing, cyanosis or edema Neuro oriented x3, moves all extremities and no focal motor deficits Speech: speech normal Psych mental status grossly normal Weight / BMI Weight Weight: 116.5 kg Body Mass Index (BMI) 34.8 ABG / Lab / Microbiology Data 04/10/25 05:50 04/10/25 05:50 Laboratory: Laboratory Results - last 24 hr 04/09/25 13:54: POC Glucose 193 H 04/09/25 14:05: WBC 9.8, RBC 4.60, Hgb 15.2, Hct 42.4, MCV 92.2, MCH 33.0 H, MCHC 35.8, RDW Std Deviation 42.7, RDW Coeff of Brody 12.8, Plt Count 219, MPV 9.1, Immature Gran % (Auto) 0.600, Neut % (Auto) 69.6, Lymph % (Auto) 20.8, Carson % (Auto) 7.4, Eos % (Auto) 1.1, Baso % (Auto) 0.5, Absolute Neuts (auto) 6.8, Absolute Lymphs (auto) 2.03, Nucleated RBC % 0, PT Cancelled, INR Cancelled, APTT Cancelled, Sodium 136, Potassium 3.9, Chloride 103, Carbon Dioxide 20.0 L, Anion Gap 14, BUN 11, Creatinine 0.85, Estim Creat Clear Calc 115.09, Est GFR (MDRD) Non-Af 99, BUN/Creatinine Ratio 12.5, Glucose 216 H, Hemoglobin A1c 7.2 H, Calcium 9.6, Troponin T High Sens 12, TSH 1.130 04/09/25 14:35: PT 14.1, INR 1.1, APTT 24.6 04/09/25 17:03: Troponin T Hi Sens 2 Hr 10 04/09/25 19:43: Troponin T Hi Sens 4Hr 10 04/09/25 22:05: POC Glucose 95 04/10/25 05:50: WBC 6.3, RBC 4.26 L, Hgb 13.8, Hct 39.2 L, MCV 92.0, MCH 32.4 H, MCHC 35.2, RDW Std Deviation 42.7, RDW Coeff of Brody 12.8, Plt Count 187, MPV 9.0, Sodium 139, Potassium 4.0, Chloride 105, Carbon Dioxide 22.7, Anion Gap 11, BUN 9, Creatinine 0.75, Estim Creat Clear Calc 136.29, Est GFR (MDRD) Non-Af 103, BUN/Creatinine Ratio 12.5, Glucose 100 H, Calcium 8.9, Triglycerides 89, Cholesterol 91, LDL Cholesterol, Calc 38, VLDL Cholesterol 18, HDL Cholesterol 35 L, Cholesterol/HDL Ratio 2.60 04/10/25 06:17: POC Glucose 112 H 04/10/25 10:50: POC Glucose 166 H Radiography Diagnostic Testing: Radiology Impression Brain CT 04/09/25 13:56 IMPRESSION: Age consistent changes, no acute findings Reading Location: [facility] Head/Neck CTA 04/09/25 13:57 IMPRESSION: No CTA evidence of vaso occlusive disease No demonstrated aneurysm or vascular malformation Patent vertebral arteries No CTA evidence of CCA or ICA stenosis No suspicious enhancing lesion airway narrowing or deviation. Reading Location: [facility] Brain MRI 04/09/25 16:08 IMPRESSION: No acute intracranial abnormality. Reading Location: [id number] D/C Instructions Discharge Diet: Low fat / Low cholesterol and 1800 Calorie Control Diet Discharge Activity: Return to Normal Activity DC O2, CPAP, BIPAP Needs Home O2 Discharge instructions: No DC home with Oxygen: No Meaningful Use Info Meaningful Use Meaningful Use Diagnoses (Choose all that apply): None applicable Ischemic Stroke Statin Dosing Therapy Reference: STATIN DOSE THERAPY REFERENCE: * Patients > 75 years receive moderate or high dose statin therapy. * Patients 75 years or YOUNGER should receive HIGH intensity statin dose unless contraindicated. You will be required to document reason for non-treatment if statin daily dose does not meet guidelines. HIGH DOSE STATIN THERAPY DAILY Atorvastatin > than or = to 40 mg Rosuvastatin > than or = to 20 mg Amlodipine + Atorvastatin > than or = to 2.5/40 mg Ezetimibe + Simvastatin 10/80 mg Simvastatin 80mg Discharge Plan Admission Admit Date/Time: 04/09/25 16:02 Primary Reason for Your Visit: Dizziness and Disequilibrium Attending Provider: Anni Olson Primary Care Provider: Josy Marrero NP Consulting Providers: Cornelio Mullins; Jesusita Graff; Francisca Harris; Daily Marcos; Brianne Rebolledo; Hector Tavarez; Tammy Gu; [place]; Tyrone Iglesias; Ty Peoples; Andressa Geronimo; Harsh Lorenzana; Rohini Robles; Supriya Doty; Muna Taylor; Fabrizio Ruelas; Milly Durán; William Astorga; Eneida Olson; Tyra Feliciano; Bacilio Partida Discharge Orders/Prescriptions Prescriptions: Continued cholecalciferol (vitamin D3) 1,000 unit capsule 1,000 unit PO QDAY cyanocobalamin (vitamin B-12) [Vitamin B-12] 1,000 mcg tablet 1,000 mcg PO QDAY multivitamin,op-jqki-gdmnmgzu [Complete Multivitamin] tablet 1 tab PO QDAY omega-3 fatty acids [Fish Oil Concentrate] 1,000 mg capsule 2,000 mg PO BID Synjardy XR 25-1,000 mg tablet, IR - ER, biphasic 24hr 1 tab PO DAILY Qty: 90 4RF gabapentin 300 mg capsule 1,200 mg PO BID 90 Days Qty: 720 4RF glimepiride 4 mg tablet 4 mg PO QAM Qty: 90 4RF Rx Instructions: administer with breakfast lisinopril 10 mg tablet 10 mg PO DAILY Qty: 90 4RF metformin 1,000 mg tablet 1,000 mg PO QHS Qty: 90 4RF rosuvastatin 20 mg tablet 20 mg PO DAILY Qty: 90 4RF semaglutide 2 mg/dose (8 mg/3 mL) pen injector 2 mg subcut QWEEK 90 Days Qty: 9.75 3RF (DME) OneTouch Ultra Test Strip See Rx Instructions .Route Qty: 100 12RF Rx Instructions: use 2 x a day , fasting and 1-2 hrs after eating (DME) blood-glucose meter [OneTouch Ultra2 Meter] Misc See Rx Instructions .Route Qty: 1 0RF Rx Instructions: As directed (DME) lancets [OneTouch UltraSoft 2 Lancet] 30 gauge misc See Rx Instructions .Route Qty: 200 3RF Rx Instructions: use 2 x a day Other Ambulatory Orders: 30 Day Event Recorder Preventi (Urgent) Timeframe: 1 Day Facility: [facility] - Location: Cardiovascular Services Ordered By: Dr. Anni Olson Referrals / Follow Up: Rebel Funes MD [Non-Staff -Ordering Privileges] - Within 3 Months Josy Marrero NP, AVICULTURIST-C [Primary Care Provider] - In 1 Week Disposition Disposition (needs filled in before D/C Order can be placed): Home, Self Care Charges/Coding Visit Charges Inpatient E&M: 74625 Disch Hosp
[2025-04-10 14:14] VITALS: BP 128/73; PULSE 71; RESP 16; TEMP 36.7; O2SAT 97
--- NOTE | 2025-04-10 14:37 | CASEMGMT ---
Patient has order for discharge. RN CM into discuss needs at discharge. Patient denies needs or help at discharge. Patient had no further questions or concerns.
--- NOTE | 2025-04-10 14:49 | PHA.DC.MR.R ---
Pharmacy [place] Med Reconciliation Pharmacy Service has performed discharge medication reconciliation for this patient. The patient's discharge medication list was reviewed for discrepancies and discrepancies were resolved. Medications at Discharge Home Medications cholecalciferol (vitamin D3) 25 mcg (1,000 unit) capsule 1,000 unit PO QDAY 05/17/18 cyanocobalamin (vitamin B-12) 1,000 mcg tablet (Vitamin B-12) 1,000 mcg PO QDAY 05/17/18 multivitamin,nb-muzb-ywrrgqwp (Complete Multivitamin tablet) 1 tab PO QDAY 05/17/18 omega-3 fatty acids 1,000 mg capsule (Fish Oil Concentrate) 2,000 mg PO BID 06/10/21 empagliflozin 25 mg-metformin ER 1,000 mg tablet,extended release 24hr (Synjardy XR) 1 tab PO DAILY #90 ea 11/29/24 gabapentin 300 mg capsule 1,200 mg (4 x 300 mg) PO BID 3 months #720 caps 11/29/24 glimepiride 4 mg tablet 4 mg PO QAM #90 tabs 11/29/24 lisinopril 10 mg tablet 10 mg PO DAILY #90 tabs 11/29/24 metformin 1,000 mg tablet 1,000 mg PO QHS #90 tabs 11/29/24 rosuvastatin 20 mg tablet 20 mg PO DAILY #90 tabs 11/29/24 semaglutide 2 mg/dose (8 mg/3 mL) subcutaneous pen injector 2 mg (0.75 mL) subcut QWEEK 3 months #9.75 mL 11/29/24 blood sugar diagnostic (OneTouch Ultra Test strips) #100 ea 11/30/24 blood-glucose meter (OneTouch Ultra2 Meter) #1 ea 11/30/24 lancets 30 gauge (OneTouch UltraSoft 2 Lancet) #200 ea 11/30/24
== END 2025-04-10 15:24 | disposition home or self-care (01) ==
LOC: ED 16:12 → PCU 16:21
PROVIDERS: Admitting Provider Hospitalist; Emergency Provider Emergency Medicine; PCP Nurse Practitioner; Referring Provider Hospitalist; Visit Provider Internal Medicine
DX: R42 Dizziness and giddiness (principal); E11.65 Type 2 diabetes mellitus with hyperglycemia; E11.42 Type 2 diabetes mellitus with diabetic polyneuropathy; E78.5 Hyperlipidemia, unspecified; I10 Essential (primary) hypertension; R51.9 Headache, unspecified; Z68.34 Body mass index [BMI] 34.0-34.9, adult; Z79.84 Long term (current) use of oral hypoglycemic drugs; E66.811 Obesity, class 1; E55.9 Vitamin D deficiency, unspecified; Z79.899 Other long term (current) drug therapy
CPT/HCPCS: 36415; 70450; 70496; 70498; 70551; 80048; 80061; 82962; 83036; 84443; 84484; 85025; 85027; 85610; 85730; 93005; 93306; 96360; 96361; 99221; 99285; Q9957; Q9967; A4216; C8929; G0378

== ENCOUNTER → 2025-04-30 | Outpatient (CLI) | payer BC, SELFPAY ==
--- OUTSIDE RECORDS SUMMARY | 2025-05-01 03:01 | XMS RPT_ITS | CCD ---
Author Organization [facility] Care Team Providers Care Desizing Machine Back Tender Name Role Phone Janes PHONE MANAGER-CJosy Primary Care Provider Janes PHONE MANAGER-CJosy Attending Provider Janes PHONE MANAGERBenedictoCJosy Referring Provider Dr. Harry Polanco DO Emergency Provider Dr. Bacilio Partida DO Admit Provider Dr. Bacilio Partida DO Attending Provider Dr. Bacilio Partida DO Referring Provider Dr. Bacilio Partida DO Other Provider Cornelio Mullins MD Other Provider Unavailable Dajuan CABRERA, Dr. Mc Other Provider Francisca Harris MD Other Provider Unavailable Dr. Daily Marcos DO Other Provider [phone] Dr. Brianne Rebolledo MD Other Provider Dr. Hector Tavarez MD Other Provider Dr. Tammy Gu MD Other Provider Dr. Ant Park MD Other Provider Dr. Tyrone Iglesias MD Other Provider Shelton CABRERA, Dr. Crawford Other Provider Andressa Geronimo MD Other Provider Salomón CABRERA, Dr. House Other Provider Travis CABRERA, Dr. Nova Other Provider [phone] Soren CABRERA, Dr. Epps Other Provider Claudia CABRERA, Dr. Muna Arora Other Provider Suraj CABRERA, Dr. Dinh Other Provider [phone] Luis Armando CABRERA, Dr. Atkins Other Provider Rizwan CABRERA, Dr. Thomas Other Provider Wesley CABRERA, Dr. Monique Other Provider Unavailable Jodie CABRERA, Tyra Other Provider Unavailable Wesley CHAUDHARI, Dr. Hutton Attending Provider Wesley CHAUDHARI, Dr. Hutton Other Provider [phone] Janes PHONE MANAGER, Josy Primary Care Unavailable Anni Olson Referring Unavailable Anni Olson Attending Unavailable Marrero PHONE MANAGER, Josy Primary Care Unavailable Venessa Porter Attending Unavailable Marrero PHONE MANAGER, Josy Primary Care Unavailable HarpreetCornelio kumar Consulting Unavailable Bacilio Partida Admitting Unavailable Bacilio Partida Referring Unavailable Anni Olson Attending Unavailable Adeli, Amir Consulting Unavailable Hinduja, Francisca Consulting Unavailable Hemant, Daily Consulting Unavailable Zha, Brianne Consulting Unavailable Daysi, Hector Consulting Unavailable Brittanie, Tammy Consulting Unavailable [place] Consulting Unavailable Tyrone Iglesias Consulting Unavailable Ty Peoples Consulting Unavailable Andressa Geronimo Consulting Unavailable Harsh Lorenzana Consulting Unavailable Rohini Robles Consulting Unavailable Supriya Doty Consulting Unavailable Muna Taylor Consulting UnavailFabrizio Hanson Consulting Unavailable Milly Durán Consulting Unavailable William Astorga Consulting Unavailable Eneida Olson Consulting Unavailable Tyra Feliciano Consulting Unavailable Jaquan Bacilio Consulting Unavailable Anni Olson Consulting Unavailable Bacilio Partida Attending Unavailable Marrero PHONE MANAGER, Josy Referring Unavailable Marrero PHONE MANAGER, Josy Attending Unavailable Marrero PHONE MANAGER, Josy Primary Care Unavailable Marrero PHONE MANAGER, Josy Primary Care Unavailable Cornelio Mullins Consulting Unavailable Jaquan Bacilio Admitting Unavailable Jaquan, Bacilio Referring Unavailable Anni Olson Attending Unavailable Adeli, Amir Consulting Unavailable Hinduja, Francisca Consulting Unavailable Hemant, Daily Consulting Unavailable Zha, Brianne Consulting Unavailable Daysi, Hector Consulting Unavailable Tammy Gu Consulting Unavailable [place] Consulting Unavailable Tyrone Iglesias Unavailable Ty Peoples Consulting Unavailable Andressa Geronimo Consulting Unavailable Harsh Lorenzana Consulting Unavailable Rohini Robles Consulting Unavailable Supriya Doty Consulting Unavailable Muna Taylor Consulting UnavailFabrizio Hanson Consulting Unavailable Milly Durán Consulting Unavailable William Astorga Consulting Unavailable Eneida Olson Consulting Unavailable Tyra Feliciano Consulting Unavailable Bacilio Partida Consulting Unavailable Medications Current Medications Medication Drug Class(es) Dates Sig (Normalized) Sig (Original) Blood-Glucose Meter (Onetouch Ultra2 Meter) misc (2 sources) Start: 11-30-2024 Blood-Glucose Meter (Onetouch Ultra2 Meter) misc Active 0 .Route 1 0 November 30, 2024 1:00am Uncontrolled type 2 diabetes mellitus Type 2 diabetes mellitus with hyperglycemia As directed cholecalciferol 0.025 mg oral capsule (2 sources) Vitamin D Start: 05-17-2018 take 1 capsule by mouth once daily Cholecalciferol (Vitamin D3) 1,000 unit capsule Active 1000 U PO daily May 17, 2018 12:00am supplement gabapentin 300 mg oral capsule (20 sources) Anti-epileptic Agent Start: 10-27-2023 End: 11-29-2024 take 4 capsules by mouth twice daily Gabapentin 300 mg capsule Active 1200 mg PO TWICE A DAY 720 90 4 November 29, 2024 8:06pm neuropathy Start: 11-10-2021 End: 10-27-2023 take 3 capsules [...] times daily in the morning, then take 1 capsule by mouth once daily, then take 3 capsules by mouth at bedtime Gabapentin 300 mg capsule Discontinued 1500 mg PO THREE TIMES A DAY 450 90 2 May 30, 2020 6:13pm December 10, 2020 8:12pm 1 in the AM 1 med day 3 at HS Start: 08-17-2018 End: 08-12-2019 take 3 capsules by mouth at bedtime Gabapentin 300 mg capsule Discontinued 900 mg PO AT BEDTIME 270 90 3 May 03, 2019 6:10pm August 12, 2019 11:21am Start: 05-17-2018 End: 08-17-2018 take 0.2 capsule by mouth once daily Gabapentin 300 mg capsule Discontinued 300 mg PO .2 a day 60 5 May 17, 2018 7:47pm August 17, 2018 9:17pm Multivitamin,Zh-Yrgf-Jykyfol s (Complete Multivitamin) tablet (2 sources) Start: 05-17-2018 Multivitamin,Kh-Okbs-Wxireof s (Complete Multivitamin) tablet Active 1 {tbl} PO daily May 17, 2018 12:00am supplement Start: 05-17-2018 Multivitamin,T s-Bgqj-Enyixbke (Complete Multivitamin) tablet Active 1 {tbl} PO daily May 17, 2018 12:00am [place]-3 Fatty Acids (Fish Oi l Concentrate) 1,000 mg capsule (2 sources) Start: 06-10-2021 [place]-3 Fatty Acids (Fish Oil Concentrate) 1,000 mg capsule Active 2000 mg PO TWICE A DAY June 10, 2021 12:00am supplement Start: 06-10-2021 [place]-3 Fatty Acids (Fish Oil Concentrate) 1,000 mg capsule Active 2000 mg PO TWICE A DAY June 10, 2021 12:00am Semaglutide 2 mg/dose (8 mg/ 3 mL) pen injector (6 sources) Start: 11-29-2024 Semaglutide 2 mg/dose (8 mg/3 mL) pen injector Active 2 mg SC EVERY WEEK 9.75 90 3 November 29, 2024 8:07pm Uncontrolled type 2 diabetes mellitus Type 2 diabetes mellitus with hyperglycemia diabetes Start: 11-29-2024 Semaglutide 2 mg/dose (8 mg/3 mL) pen injector Active 2 mg SC [...] hyperglycemia vitamin b12 1 mg oral tablet (2 sources) Vitamin B12 Start: 05-17-2018 take 1 tablet by mouth once daily Cyanocobalamin (Vitamin B-12) (Vitamin B-12) 1,000 mcg tablet Active 1000 ug PO daily May 17, 2018 12:00am supplement Completed/Discontinued Medications Medication Drug Class(es) Dates Sig (Normalized) Sig (Original) amoxicillin 875 mg / clavulanate 125 mg oral tablet (2 sources) Penicillin-class Antibacterial Start: 02-16-2022 End: 06-05-2022 Amoxicillin-Pot Clavulanate 875-125 mg tablet Discontinued 1 {tbl} PO TWICE A DAY 20 0 February 16, 2022 12:00am June 05, 2022 7:26pm azithromycin 250 mg oral tablet (2 sources) Macrolide Antimicrobial Start: 02-04-2022 End: 02-09-2022 take [...] after eating canagliflozin 300 mg oral tablet (10 sources) Sodium-Glucose Cotransporter 2 Inhibitor Start: 05-17-2018 End: 02-12-2020 take 1 tablet by mouth once daily in the morning Canagliflozin (Invokana) 300 mg tablet Discontinued 300 mg PO EVERY MORNING 90 November 06, 2019 2:08pm February 12, 2020 6:39pm empagliflozin 25 mg oral tablet (2 sources) Sodium-Glucose Cotransporter 2 Inhibitor Start: 02-12-2020 End: 12-10-2020 take 1 tablet by mouth once daily Empagliflozin (Jardiance) 25 mg tablet Discontinued 25 mg PO DAILY 90 3 February 12, 2020 12:00am December 10, 2020 8:06pm 24 hr empagliflozin 25 mg / metFORMIN hydrochloride 1000 mg extended release oral tablet (12 sources) Biguanide, Sodium-Glucose Cotransporter 2 Inhibitor Start: 12-10-2020 End: 11-29-2024 Empagliflozin-Metf ormin (Synjardy Xr) 25-1,000 mg tablet, IR - ER, biphasic 24hr Discontinued 1 {tbl} PO DAILY 90 October 27, 2023 7:52pm November 29, 2024 8:08pm glimepiride 4 mg oral tablet (20 sources) Sulfonylurea Start: 05-17-2018 End: 11-29-2024 take 1 tablet by mouth once daily at breakfast Glimepiride 4 mg tablet Discontinued 4 mg PO EVERY MORNING 30 0 April 27, 2019 12:00am July 23, 2023 6:43pm administer with breakfast icosapent ethyl 1000 mg oral capsule (2 sources) Start: 05-17-2018 End: 08-17-2018 Icosapent Ethyl (Vascepa) 1 gram capsule Discontinued 2 g PO TWICE A DAY May 17, 2018 12:00am August 17, 2018 9:00pm krill oil 500 mg oral capsule (2 sources) Start: 05-17-2018 End: 02-12-2020 Krill Oil 500 mg capsule Discontinued mg PO 0 May 17, 2018 12:00am February 12, 2020 6:35pm lisinopril 10 mg oral tablet (20 sources) Angiotensin Converting Enzyme Inhibitor Start: 05-03-2019 End: 11-29-2024 take 1 tablet by mouth once daily Lisinopril 10 mg tablet Discontinued 10 mg PO DAILY 90 October 27, 2023 7:53pm November 29, 2024 8:08pm Start: 05-17-2018 End: 05-03-2019 take 1 tablet by mouth once daily Lisinopril 2.5 mg tablet Discontinued 2.5 mg PO daily 90 3 August 17, 2018 9:16pm May 03, 2019 6:13pm metFORMIN hydrochloride 1000 mg oral tablet (20 sources) Biguanide Start: 06-10-2021 End: 11-29-2024 take 1 tablet by mouth at bedtime Metformin 1,000 mg tablet Discontinued 1000 mg PO AT BEDTIME 90 4 October 27, 2023 7:53pm November 29, 2024 8:08pm Start: 05-17-2018 End: 12-10-2020 take 1 tablet by mouth twice daily Metformin 1,000 mg tablet Discontinued 1000 mg PO TWICE A DAY 180 3 March 06, 2020 6:00pm December 10, 2020 8:07pm omega-3 acid ethyl esters (skilled nursing) 1000 mg oral capsule (4 sources) Start: 03-07-2021 End: 06-28-2023 [place]-3 Acid Ethyl Esters 1 gram capsule Discontinued 2 NMA PO TWICE A DAY 360 90 3 November 27, 2022 8:06pm June 28, 2023 6:32pm rosuvastatin calcium 20 mg oral tablet (10 sources) HMG-CoA Reductase Inhibitor Start: 06-12-2021 End: 11-29-2024 take 1 tablet by mouth once daily Rosuvastatin 20 mg tablet Discontinued 20 mg PO DAILY 90 4 October 27, 2023 7:54pm November 29, 2024 8:08pm 0.25 mg, 0.5 mg dose 1.5 ml semaglutide 1.34 mg/ml pen injector (14 sources) Start: 05-03-2019 End: 07-23-2023 Semaglutide (Ozempic) [...] 1 mg/dose (2 mg/1.5 mL) pen injector (2 sources) Start: 06-29-2023 End: 10-27-2023 Semaglutide 1 mg/dose (2 mg/1.5 mL) pen injector Discontinued 1 mg SC EVERY WEEK 9.75 90 2 June 29, 2023 12:00am October 27, 2023 8:51pm sildenafil 100 mg oral tablet (12 sources) Phosphodiesterase 5 Inhibitor Start: 05-03-2019 End: 04-09-2025 Sildenafil 100 mg tablet Discontinued 100 mg PO DAILY as needed for sexual activity 07 22October 27, 2023 7:54pm April 09, 2025 2:15pm administer 30 minutes to 4 hours before activity triamcinolone acetonide 5 mg/ml topical cream (2 sources) Corticosteroid Start: 11-27-2022 End: 04-09-2025 Triamcinolone Acetonide 0.5 % cream Discontinued 1 NMA TOPICAL TWICE A DAY 09 10November 27, 2022 1:00am April 09, 2025 2:15pm Problems Problem Classification Problem Date Documented Da te Episodic/Chronic Conditions associated with dizziness or vertigo (6 sources) Dizziness; Translations: [Dizziness and giddiness] Onset: 04-12-2025 04-09-2025 Episodic Diabetes mellitus with complications (4 sources) Type II diabetes mellitus uncontrolled; Translations: [Diabetes mellitus without mention of complication, type II or unspecified type, uncontrolled] 10-28-2023 Chronic Diabetes mellitus without complication (2 sources) Diabetes mellitus; Translations: [Type 2 diabetes mellitus without complications] 05-17-2018 Chronic Disorders of lipid metabolism (2 sources) Hypertriglyceridemi a; Translations: [Pure hyperglyceridemia] 05-17-2018 Chronic Essential hypertension (5 sources) Hypertensive disorder; Translations: [Essential (primary) hypertension] Onset: 12-11-2024 02-13-2020 Chronic Other connective tissue disease (2 sources) Bursitis of shoulder; Translations: [Bursitis of unspecified shoulder] 12-11-2020 Episodic Other connective tissue disease (4 sources) Tendonitis of left shoulder; Translations: [Other enthesopathies, not elsewhere classified] 02-05-2022 Episodic Other connective tissue disease (2 sources) Tendonitis of right shoulder; Translations: [Other enthesopathies, not elsewhere classified] 03-10-2023 Episodic Other nervous system disorders (4 sources) Neuropathy; Translations: [Polyneuropathy, unspecified] 09-16-2021 Chronic Other non-traumatic joint disorders (2 sources) Pain in left shoulder; Translations: [Left shoulder pain] 07-23-2023 Episodic Other non-traumatic joint disorders (2 sources) Pain in right shoulder; Translations: [Right shoulder pain] 10-27-2022 Episodic Results Test Name Value Interpretation Reference Range Facility Anion gap in Serum or Plasma Ordered By: Bacilio Partida on 04-10-2025 Anion gap [Moles/Vol] 11 mmol/L - [facility] BUN/creatinine ratioOrdered By: Bacilio Partida on 04-10-2025 Urea nitrogen/Creatinine [Mass ratio] 12.5 mg/mg - [facility] Basic Metabolic Profile (BMP )on 04-10-2025 BUN/CRE 12.5 RATIO Normal 07-30 [facility] Comment on above: Order Comment: Comme nts: NPO at [place] prior to lipid panel Performed By: #### L 500.4100, L500.2500, L100.0500 #### [facility] [address] [place], [address] Calcium [Mass/Vol] 8.9 mg/dL Normal 7.6-11.0 [facility] Comment on above: Order Comment: Comme nts: NPO at [place] prior to lipid panel Performed By: #### L 500.4100, L500.2500, L100.0500 #### [facility] [address] [place], [address] Chloride [Moles/Vol] 105 mmol/L Normal 98-108 [facility] Comment on above: Order Comment: Comme nts: NPO at [place] prior to lipid panel Performed By: #### L 500.4100, L500.2500, L100.0500 #### [facility] [address] [place], [address] CO2 [Moles/Vol] 22.7 mmol/L Normal 21.0-32.0 [facility] Comment on above: Order Comment: Comme nts: NPO at [place] prior to lipid panel Performed By: #### L 500.4100, L500.2500, L100.0500 #### [facility] [address] [place], [address] Creatinine [Mass/Vol] 0.75 mg/dL Normal 0.70-1.20 [facility] Comment on above: Order Comment: Comme nts: NPO at [place] prior to lipid panel Performed By: #### L 500.4100, L500.2500, L100.0500 #### [facility] [address] [place], [address] ECRCL 136.29 ml/min Normal 50-250 [facility] Comment on above: Order Comment: Comme nts: NPO at [place] prior to lipid panel Performed By: #### L 500.4100, L500.2500, L100.0500 #### [facility] [address] [place], [address] GAP 11 Normal 5-15 [facility] Comment on above: Order Comment: Comme nts: NPO at [place] prior to lipid panel Performed By: #### L 500.4100, L500.2500, L100.0500 #### [facility] [address] [place], [address] GFR/1.73 sq M.predicted among non-blacks MDRD (S/P/Bld) [Vol rate/Area] 103 mL/min/{1.73_m2} Normal >60 [facility] Comment on above: Order Comment: Comme nts: NPO at [place] prior to lipid panel Result Comment: mL/m in/1.73m2 CKD-EPI Creatinine Equation (2020) Performed By: #### L 500.4100, L500.2500, L100.0500 #### [facility] [address] [place], [address] Glucose [Mass/Vol] 100 mg/dL High 70-99 [facility] Comment on above: Order Comment: Comme nts: NPO at [place] prior to lipid panel Performed By: #### L 500.4100, L500.2500, L100.0500 #### [facility] [address] [place], [address] Potassium [Moles/Vol] 4.0 mmol/L Normal 3.3-5.1 [facility] Comment on above: Order Comment: Comme nts: NPO at [place] prior to lipid panel Performed By: #### L 500.4100, L500.2500, L100.0500 #### [facility] [address] [place], [address] Sodium [Moles/Vol] 139 mmol/L Normal 133-145 [facility] Comment on above: Order Comment: Comme nts: NPO at [place] prior to lipid panel Performed By: #### L 500.4100, L500.2500, L100.0500 #### [facility] [address] [place], [address] Urea nitrogen [Mass/Vol] 9 mg/dL Normal 4-19 [facility] Comment on above: Order Comment: Comme nts: NPO at [place] prior to lipid panel Performed By: #### L 500.4100, L500.2500, L100.0500 #### [facility] [address] [place], [address] Bedside Glucoseon 04-10-2025 FINGERSTICK GLU 166 mg/dL High 74-106 [facility] Comment on above: Result Comment: SUBHASH GEMENT OF PATIENT CARE PER NURSING PROTOCOL Performed By: #### L 500.4100, L500.2500, L100.0500 #### [facility] [address] [place], [address] FINGERSTICK GLU 112 mg/dL High 74-106 [facility] Comment on above: Result Comment: SUBHASH GEMENT OF PATIENT CARE PER NURSING PROTOCOL Performed By: #### L 500.4100, L500.2500, L100.0500 #### [facility] [address] [place], [address] FINGERSTICK GLU 95 mg/dL Normal 74-106 [facility] Comment on above: Result Comment: SUBHASH GEMENT OF PATIENT CARE PER NURSING PROTOCOL Performed By: #### L 500.4100, L500.2500, L100.0500 #### [facility] [address] [place], [address] CBC-Complete Blood Cnt No Di ffon 04-10-2025 Erythrocyte distribution width (RBC) [Ratio] 12.8 % Normal 11.6-14.6 [facility] Comment on above: Performed By: #### L 500.4100, L500.2500, L100.0500 #### [facility] [address] [place], [address] Hematocrit (Bld) [Volume fraction] 39.2 % Low 40-54 [facility] Comment on above: Performed By: #### L 500.4100, L500.2500, L100.0500 #### [facility] [address] [place], [address] Hemoglobin (Bld) [Mass/Vol] 13.8 g/dL Normal 13.0-16.5 [facility] Comment on above: Performed By: #### L 500.4100, L500.2500, L100.0500 #### [facility] [address] [place], [address] MCH (RBC) [Entitic mass] 32.4 pg High 27.0-32.0 [facility] Comment on above: Performed By: #### L 500.4100, L500.2500, L100.0500 #### [facility] [address] [place], [address] MCHC (RBC) [Mass/Vol] 35.2 g/dL Normal 32-36 [facility] Comment on above: Performed By: #### L 500.4100, L500.2500, L100.0500 #### [facility] [address] [place], [address] MCV (RBC) [Entitic vol] 92.0 fL Normal 80-94 [facility] Comment on above: Performed By: #### L 500.4100, L500.2500, L100.0500 #### [facility] [address] [place], [address] Platelet mean volume (Bld) [Entitic vol] 9.0 fL Normal 6.2-12.0 [facility] Comment on above: Performed By: #### L 500.4100, L500.2500, L100.0500 #### [facility] [address] [place], [address] Platelets (Bld) [#/Vol] 187 10*3/uL Normal 150-450 [facility] Comment on above: Performed By: #### L 500.4100, L500.2500, L100.0500 #### [facility] [address] [place], [address] RBC (Bld) [#/Vol] 4.26 10*6/uL Low 4.6-6.2 [facility] Comment on above: Performed By: #### L 500.4100, L500.2500, L100.0500 #### [facility] [address] [place], [address] RDW SD 42.7 fl Normal 35.1-43.9 [facility] Comment on above: Performed By: #### L 500.4100, L500.2500, L100.0500 #### [facility] [address] [place], [address] WBC (Bld) [#/Vol] 6.3 10*3/uL Normal 4.4-11.0 [facility] Comment on above: Performed By: #### L 500.4100, L500.2500, L100.0500 #### [facility] [address] [place], [address] Calculated very low density lipoprotein (VLDL) cholesterol measurementOrdered By: Bacilio Partida on 04-10-2025 Calculated very low density lipoprotein (VLDL) cholesterol measurement 18 mg/dL 5-40 [facility] Carbon dioxide, total [Moles /volume] in Central venous bloodOrdered By: Bacilio Partida on 04-10-2025 CO2 [Moles/Vol] 22.7 mmol/L 21.0-32.0 [facility] Chloride assayOrdered By: Eduardo Partida on 04-10-2025 Chloride [Moles/Vol] 105 mmol/L 98-108 [facility] Electrocardiogram reportOrde red By: Roberto Burnham on 04-10-2025 [address] [facility] Services [address] [place] [address] 12 Lead EKG 04/09/25 1416 MR#: [id number] Acct: [id number] Name: SUMMER MA Rep #:[id number] : 1965 60 From: Roberto Burnham MD Attending Dr: Dr. Anni Olson DO S tatus: ADM DORIS Ordering Dr: Harry Polanco DO Date: Location: [facility] Sex: M C Admitted: 04/09/25 Test Reason : STROKE TEAM Blood Pressure : */* mmHG Vent. Rate : 84 BPM Atrial Rate : 84 BPM P-R Int : 206 ms QRS Dur : 86 ms QT Int : 366 ms P-R-T Axes : 47 30 53 degrees QTcB Int : 432 ms Normal sinus rhythm Normal ECG Confirmed by ROBERTO BURNHAM MD ([id number]), senior editor STANISLAW PERRY ([id number]) on 04/10/2025 1:31:36 PM Referred By: Bacilio Partida Confirmed By: ROBERTO BURNHAM MD 04/10/25 1331 Date _ Roberto Burnham MD CC: MARGARETH Marrero; Dr. Bacilio Partida DO; Dr. Anni Olson DO; Dr. Harry Polanco DO ~ Signed [facility] Other Erythrocyte distribution wid th ratioOrdered By: Bacilio Partida on 04-10-2025 Erythrocyte distribution width (RBC) [Ratio] 12.8 % 11.6-14.6 [facility] Erythrocyte distribution wid th standard deviationOrdered By: Bacilio Partida on 04-10-2025 Erythrocyte distribution width (RBC) [Ratio] 42.7 fl 35.1-43.9 [facility] Glomerular filtration rate ( GFR) estimation/1.73 sq m using serum, plasma, or whole bOrdered By: Bacilio Partida on 04-10-2025 GFR/1.73 sq M.predicted among non-blacks MDRD (S/P/Bld) [Vol rate/Area] 103 mL/min/{1.73_m2} >60 [facility] Comment on above: mL/min/1.73m2 CKD-EP I Creatinine Equation (2020) [facility] deOrdered By: Anni Olson on 04-10-2025 Glucose [Mass/Vol] 166 mg/dL High 74-106 [facility] Comment on above: MANAGEMENT OF PATIEN T CARE PER NURSING PROTOCOL Hematocrit Auto (Bld) [Volum e fraction]Ordered By: Bacilio Partida on 04-10-2025 Hematocrit (Bld) [Volume fraction] 39.2 % Low 40-54 [facility] Hemoglobin measurementOrdere d By: Bacilio Partida on 04-10-2025 Hemoglobin (Bld) [Mass/Vol] 13.8 g/dL 13.0-16.5 [facility] LDL calc ser/plasOrdered By: Bacilio Partida on 04-10-2025 Cholesterol in LDL [Mass/Vol] 38 mg/dL [facility] Comment on above: Kdxkfiojsk=761-419 m g/dL & Higher Vqim=356 mg/dL or greater Lipid Profileon 04-10-2025 CHOL:HDL 2.60 Normal [facility] Comment on above: Order Comment: Comme nts: NPO at [place] prior to lipid panel Performed By: #### L 500.4100, L500.2500, L100.0500 #### [facility] [address] [place], [place], [address] Cholesterol [Mass/Vol] 91 mg/dL Normal <=200 [facility] Comment on above: Order Comment: Comme nts: NPO at [place] prior to lipid panel Result Comment: Chol esterol level, Desirable <200 mg/dL Borderline high cholesterol 200-239 mg/dL High cholesterol >=240 mg/dL Recommendations of the NCEP Adult Treatment Panel for the following risk-cutoff thresholds for the [place] population. Performed By: #### L 500.4100, L500.2500, L100.0500 #### [facility] [address] [place], [address] Cholesterol in HDL [Mass/Vol] 35 mg/dL Low [facility] Comment on above: Order Comment: Comme nts: NPO at [place] prior to lipid panel Result Comment: Nayeli onal Cholesterol Education Program (NCEP) guidelines: <40 mg/dL: Low HDL-cholesterol (major risk factor for CHD) >= 60 mg/dL: High HDL-cholesterol (negative risk factor for CHD) HDL-cholesterol is affected by a number of factors, e.g. smoking, exercise, hormones, sex and age. Performed By: #### L 500.4100, L500.2500, L100.0500 #### [facility] [address] [place], [address] Cholesterol in LDL [Mass/Vol] 38 mg/dL Normal [facility] Comment on above: Order Comment: Comme nts: [place] at [place] prior to lipid panel Result Comment: Bord fpldsw=985-202 mg/dL Higher Xcyo=283 mg/dL or greater Performed By: #### L 500.4100, L500.2500, L100.0500 #### [facility] [address] [place], [address] Cholesterol in VLDL [Mass/Vol] 18 mg/dL Normal 5-40 [facility] Comment on above: Order Comment: Comme nts: [place]PO at [place] prior to lipid panel Performed By: #### L 500.4100, L500.2500, L100.0500 #### [facility] [address] [place], [address] Triglyceride [Mass/Vol] 89 mg/dL Normal [facility] Comment on above: Order Comment: Comme nts: [place]PO at [place] prior to lipid panel Result Comment: The drugs N-Acetylcysteine and Metamizole may falsely depress this assay. Normal range: <150 mg/dL Borderline High: 150-199 mg/dL High: 200-499 mg/dL Very High: >500 mg/dL Performed By: #### L 500.4100, L500.2500, L100.0500 #### [facility] [address] [place], [address] MCV (mean corpuscular volume ) determinationOrdered By: Bacilio Partida on 04-10-2025 MCV (RBC) [Entitic vol] 92.0 fL 80-94 [facility] MR/CON.PCM.NEon 04-10-2025 MR/CON.PCM.NE [facility] Medical Records Department [address] [place] [address] Consultation - Neurology 04/10/25 0956 MR#: [id number] Acct: [id number] Name: SUMMER MA Rep #: [id number] : 1965 60 From: Brianne Rebolledo MD PCP: MARGARETH Dawson Status:DIS DORIS Location: [place] [address] Assessment and Plan: Neuro Assessment/Plan SUMMER MA is a 60 M with a past medical history of HTN DM2. HLD, being evaluated by Teleneurology for acute onset dizziness transitioning to headache. This was an atypical headache for patient but events seem to have been triggered after being exposed to sunlight. Currently dizziness improved, headache still present. Symptoms atypical for cerebrovascular event but lasted long enough that MRI should have been revealing. At this time symptoms are not consistent with stroke and improvement with headache treatment suggests more vestibular migraine. Appropriate for patient to be evaluated for stroke given his vascular risk factors and atypical presentation however. Recommend additional migraine cocktails. Exam is largely nonfocal without evidence for persistent peripheral vertigo. Diagnosis: likely migraine Plan: - migraine cocktail - 30mg IV toradol, 25mg PO benadryl, and 10mg PO compazine Followup with Neurology in 6-8 weeks if recurrent symptoms. I personally attended this patient and spent a total time of 45minutes evaluating this patient including clinical assessment, review of chart, medical history imaging, and determining appropriate treatment and workup. HPI Consult Data Date of Consult: 04/12/25 HPI Narrative HPI Narrative: SUMMER MA, is a 60 M who presented to [facility] ED on 04/09/2025 with dizziness and disequilibrium. 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 Patient went to bed around 1:30 AM and had no issues at that time. However when he woke up around 5:30 AM he felt dizzy. When he got out of bed he had difficulty with balance and ambulation without holding onto something. Only other time he has felt like this was when he was initially diagnosed with diabetes about 10 years ago and his blood sugars were very high. The symptoms did not improve quickly so he called EMS and was brought in for further evaluation. In the ED he was mildly hypertensive to the 140s and 150s systolic but otherwise hemodynamically stable on room air. CBC and BMP were benign. Glucose 216 but notably last A1c was 7.3% in November and his A1c values have typically been between 7 and 8%. CT brain and CTA head/neck were unremarkable. EKG showed normal sinus rhythm, no ischemic changes. Was evaluated by teleneurology who recommended admission for stroke workup. Hospitalist was then contacted for admission. I saw the patient at bedside in the ED. Patient was pleasant and sitting back comfortably in bed, in no acute distress. Reports very mild dizziness at rest, improved from this morning. Has not gotten out of bed since arrival to the ED. He denies any recent illnesses. Lives at home and typically has good functional status at baseline. He works full-time and was concerned about missing work with hospitalization but was agreeable to coming in. No other acute concerns noted. Will be admitted for further management. Neurologic History Currently no dizziness, started feeling better last night in the hospital. Patient was at work when symptoms started, noted it was really bad when walking outside, no headache at that time but had headache that started last night. Noted numbness on the L side of pinky for a few days. Currently BENNETT 5/10, was a 7/10 at worst. BENNETT feels like a throbbing sensation. No nausea, no diplopia, no photophobia. No ringing in ears, no hearing loss. Re the dizziness when he first woke up was his normal blood sugar related dizziness. It's more a neuropathy sensation and that was not the dizziness that bothered him and brought him to the hospital. Dizziness was described as a sponge and suddenly felt weak all over. Also had some intermittent dysequilibrium that got better. No new medications of late. Did not pass out and he states he could have passed out. Exam -? General: Laying comfortably in bed; in no acute distress. -? HENT: Normal oropharynx and mucosa. Normal external appearance of ears and nose. Exophthalmos. -? Neck: Supple, no pain or tenderness -? CV:??? No peripheral edema. -? Pulmonary:??? Normal respiratory effort. -? Ext: No cyanosis, edema, or deformity -? Skin: No rash. Normal palpation of skin.??? -? Musculoskeletal: full range of motion; no joint tenderness. Normal digits and na (more content not included)... Normal [facility] Mean corpuscular hemoglobin (MCH) determinationOrdered By: Bacilio Partida on 04-10-2025 MCH (RBC) [Entitic mass] 32.4 pg High 27.0-32.0 [facility] Mean corpuscular hemoglobin concentration (MCHC) determinationOrdered By: Bacilio Partida on 04-10-2025 MCHC (RBC) [Mass/Vol] 35.2 g/dL 32-36 [facility] Mean platelet volume determi nationOrdered By: Bacilio Partida on 04-10-2025 Platelet mean volume (Bld) [Entitic vol] 9.0 fL 6.2-12.0 [facility] Platelet countOrdered By: Eduardo Partida on 04-10-2025 Platelets (Bld) [#/Vol] 187 10*3/uL 150-450 [facility] Potassium measurement (mass/ volume)Ordered By: Bacilio Partida on 04-10-2025 Potassium (Unsp spec) [Mass/Vol] 4.0 mmol/L 3.3-5.1 [facility] RBC Auto (Bld) [#/Vol]Ordere d By: Bacilio Partida on 04-10-2025 RBC (Bld) [#/Vol] 4.26 10*6/uL Low 4.6-6.2 [facility] Screening total cholesterol/ high density lipoprotein (HDL) cholesterol ratioOrdered By: Bacilio Partida on 04-10-2025 Cholesterol.total/Cholest tegan in HDL [Mass ratio] 2.60 {ratio} [facility] Serum creatinine measurement (mass/volume)Ordered By: Bacilio Partida on 04-10-2025 Creatinine [Mass/Vol] 0.75 mg/dL 0.70-1.20 [facility] Serum glucose measurement (m ass/volume)Ordered By: Bacilio Partida on 04-10-2025 Glucose [Mass/Vol] 100 mg/dL High 70-99 [facility] Serum or plasma calcium kate urement (mass/volume)Ordered By: Bacilio Partida on 04-10-2025 Calcium [Mass/Vol] 8.9 mg/dL 7.6-11.0 [facility] Serum or plasma cholesterol in HDL measurement (mass/volume)Ordered By: Bacilio Partida on 04-10-2025 Cholesterol in HDL [Mass/Vol] 35 mg/dL Low >40 [facility] Comment on above: National Cholesterol Education Program (NCEP) guidelines:<40 mg/dL: Low HDL-cholesterol (major risk factor for CHD)>= 60 mg/dL: High HDL-cholesterol (negative risk factor for CHD)HDL-cholesterol is affected by a number of factors, e.g. smoking, exercise, hormones, sex and age. Serum or plasma cholesterol measurement (mass/volume)Ordered By: Bacilio Partida on 04-10-2025 Cholesterol [Mass/Vol] 91 mg/dL <201 [facility] Comment on above: Cholesterol level, D esirable <200 mg/dLBorderline high cholesterol 200-239 mg/dLHigh cholesterol >=240 mg/dLRecommendations of the NCEP Adult Treatment Panel for the following risk-cutoff thresholds for the [place] population. Serum or plasma urea nitroge n measurement (mass/volume)Ordered By: Bacilio Partida on 04-10-2025 Urea nitrogen [Mass/Vol] 9 mg/dL 4-19 [facility] Sodium levelOrdered By: Mihir Partida on 04-10-2025 Sodium [Moles/Vol] 139 mmol/L 133-145 [facility] Triglycerides measurementOrd ered By: Bacilio Partida on 04-10-2025 Triglyceride [Mass/Vol] 89 mg/dL <199 [facility] Comment on above: The drugs N-Acetylcy steine and Metamizole may falsely depress this assay. Normal range: <150 mg/dLBorderline High: 150-199 mg/dLHigh: 200-499 mg/dLVery High: >500 mg/dL White blood cell (WBC) count Ordered By: Bacilio Partida on 04-10-2025 WBC (Bld) [#/Vol] 6.3 10*3/uL 4.4-11.0 [facility] 12 Lead EKGon 04-09-2025 12 [address] [facility] Cardiovascular Services [address] [place] [address] 12 Lead EKG 04/09/25 1416 MR#: [id number] Acct: [id number] Name: SUMMER AM Rep #: [id number] : 1965 60 From: Roberto Burnham MD Attending Dr: Dr. Anni Olson DO Status: ADM I NO Ordering Dr: Harry Polanco DO Date: 04/09/25 Location: [facility] Sex: M C Admitted: 04/09/25 Test Reason : STROKE TEAM Blood Pressure : */* mmHG Vent. Rate : 84 BPM Atrial Rate : 84 BPM P-R Int : 206 ms QRS Dur : 86 ms QT Int : 366 ms P-R-T Axes : 47 30 53 degrees QTcB Int : 432 ms Normal sinus rhythm Normal ECG Confirmed by ROBERTO BURNHAM MD ([id number]), senior editor STANISLAW PERRY ([id number]) on 04/10/2025 1:31:36 PM Referred By: Bacilio Partida Confirmed By: ROBERTO BURNHAM MD 04/10/25 1331 Date Roberto Burnham MD CC: PHONE MANAGER-C Josy Marrero; Dr. Bacilio Partida, DO; Dr. Anni Olson, DO; Dr. Harry Polanco, DO Signed Normal [facility] Absolute lymphocyte countOrd ered By: Harry Polanco on 04-09-2025 Lymphocytes Auto (Unsp spec) [#/Vol] 2.03 10*3/uL 0.83-4.51 [facility] Absolute neutrophil countOrd ered By: Harry Polanco on 04-09-2025 Neutrophils (Bld) [#/Vol] 6.8 10*3/uL 2.0-7.7 [facility] Activated partial thrombopla stin time (aPTT) in platelet poor plasma by coagulation aOrdered By: Harry Polanco on 04-09-2025 aPTT Coag (PPP) [Time] 24.6 s 24.1-36.2 [facility] Anion gap in Serum or Plasma Ordered By: Harry Polanco on 04-09-2025 Anion gap [Moles/Vol] 14 mmol/L 5- [facility] Automated lymphocyte count a s percentage of total leukocytesOrdered By: Harry Polanco on 04-09-2025 Lymphocytes/100 WBC Auto (Unsp spec) 20.8 % [facility] BUN/creatinine ratioOrdered By: Harry Polanco on 04-09-2025 Urea nitrogen/Creatinine [Mass ratio] 12.5 mg/mg - [facility] Basic Metabolic Profile (BMP )on 04-09-2025 BUN/CRE 12.5 RATIO Normal 07-30 [facility] Comment on above: Performed By: #### L 500.4100, L500.2500, L100.0500 #### [facility] [address] [place], [address] Calcium [Mass/Vol] 9.6 mg/dL Normal 7.6-11.0 [facility] Comment on above: Performed By: #### L 500.4100, L500.2500, L100.0500 #### [facility] [address] [place], [address] Chloride [Moles/Vol] 103 mmol/L Normal 98-108 [facility] Comment on above: Performed By: #### L 500.4100, L500.2500, L100.0500 #### [facility] [address] [place], [address] CO2 [Moles/Vol] 20.0 mmol/L Low 21.0-32.0 [facility] Comment on above: Performed By: #### L 500.4100, L500.2500, L100.0500 #### [facility] [address] [place], [address] Creatinine [Mass/Vol] 0.85 mg/dL Normal 0.70-1.20 [facility] Comment on above: Performed By: #### L 500.4100, L500.2500, L100.0500 #### [facility] [address] [place], [address] ECRCL 115.09 ml/min Normal 50-250 [facility] Comment on above: Performed By: #### L 500.4100, L500.2500, L100.0500 #### [facility] [address] [place], [address] GAP 14 Normal 5-15 [facility] Comment on above: Performed By: #### L 500.4100, L500.2500, L100.0500 #### [facility] [address] [place], [address] GFR/1.73 sq M.predicted among non-blacks MDRD (S/P/Bld) [Vol rate/Area] 99 mL/min/{1.73_m2} Normal >60 [facility] Comment on above: Result Comment: mL/m in/1.73m2 CKD-EPI Creatinine Equation (2020) Performed By: #### L 500.4100, L500.2500, L100.0500 #### [facility] [address] [place], [address] Glucose [Mass/Vol] 216 mg/dL High 70-99 [facility] Comment on above: Performed By: #### L 500.4100, L500.2500, L100.0500 #### [facility] [address] [place], [address] Potassium [Moles/Vol] 3.9 mmol/L Normal 3.3-5.1 [facility] Comment on above: Performed By: #### L 500.4100, L500.2500, L100.0500 #### [facility] [address] [place], [address] Sodium [Moles/Vol] 136 mmol/L Normal 133-145 [facility] Comment on above: Performed By: #### L 500.4100, L500.2500, L100.0500 #### [facility] [address] [place], [address] Urea nitrogen [Mass/Vol] 11 mg/dL Normal 4-19 [facility] Comment on above: Performed By: #### L 500.4100, L500.2500, L100.0500 #### [facility] [address] [place], [address] Basophil percentageOrdered B y: Harry Polanco on 04-09-2025 Basophils/100 WBC (Bld) 0.5 % 0-1 [facility] Bedside Glucoseon 04-09-2025 FINGERSTICK GLU 193 mg/dL High 74-106 [facility] Comment on above: Result Comment: SUBHASH HDZ OF PATIENT CARE PER NURSING PROTOCOL Performed By: #### L 501.080 #### [facility] [address] [place], [address] Brain without Contraston Brain without Contrast [facility] Imaging Services [address] [place] [address] Brain without Contrast MR#: [id number] Acct: [id number] Name: SUMMER MA Rep #: [id number] : 1965 M 60 From: Harsh Greer MD PCP: CARLOS DawsonC Status: ADM DORIS Study: Brain without Contrast Date of Exam: 04/09/25 Exam# [id number] Ordering Dr: Bacilio Partida DO PROCEDURE: BRAIN WITHOUT CONTRAST 04/09/2025 REASON FOR EXAM: CVA RULE OUT TECHNIQUE: BRAIN WITHOUT CONTRAST Multiplanar and multisequence images were obtained. COMPARISON: Same day CT. FINDINGS: Mild global parenchymal atrophy. No evidence of acute hemorrhage or infarction. No extra-axial blood or fluid collections. The paranasal sinuses are clear. MRI/Brain without Contrast IMPRESSION: No acute intracranial abnormality. Reading Location: [place] [address] CC: PHONE MANAGER-C Josy Marrero; Dr. Bacilio Partida DO Lumber Hacker: Signed Normal [facility] CBC W/Diff, Automatedon 03-13 Absolute Lymph 2.03 X10 3/uL Normal 0.83-4.51 [facility] Comment on above: Performed By: #### L 100.0100, L300.3900 #### [facility] [address] [place], [address] Absolute Neut 6.8 X10 3/uL Normal 2.0-7.7 [facility] Comment on above: Performed By: #### L 100.0100, L300.3900 #### [facility] [address] [place], [address] Basophils/100 WBC (Bld) 0.5 % Normal 0-1 [facility] Comment on above: Performed By: #### L 100.0100, L300.3900 #### [facility] [address] [place], [address] Eosinophils/100 WBC (Bld) 1.1 % Normal 0-5 [facility] Comment on above: Performed By: #### L 100.0100, L300.3900 #### [facility] [address] [place], [address] Erythrocyte distribution width (RBC) [Ratio] 12.8 % Normal 11.6-14.6 [facility] Comment on above: Performed By: #### L 100.0100, L300.3900 #### [facility] [address] [place], [address] Hematocrit (Bld) [Volume fraction] 42.4 % Normal 40-54 [facility] Comment on above: Performed By: #### L 100.0100, L300.3900 #### [facility] [address] [place], [address] Hemoglobin (Bld) [Mass/Vol] 15.2 g/dL Normal 13.0-16.5 [facility] Comment on above: Performed By: #### L 100.0100, L300.3900 #### [facility] [address] [place], [address] IG% 0.600 Normal 0.0-0.9 [facility] Comment on above: Result Comment: IG% - Immature Granulocytes (promyelocytes, myelocytes and metamyelocytes) > 1% indicates that a LEFT SHIFT is Present. Performed By: #### L 100.0100, L300.3900 #### [facility] [address] [place], [address] Lymphocytes/100 WBC (Bld) 20.8 % Normal 19-41 [facility] Comment on above: Performed By: #### L 100.0100, L300.3900 #### [facility] [address] [place], [address] MCH (RBC) [Entitic mass] 33.0 pg High 27.0-32.0 [facility] Comment on above: Performed By: #### L 100.0100, L300.3900 #### [facility] [address] [place], [address] MCHC (RBC) [Mass/Vol] 35.8 g/dL Normal 32-36 [facility] Comment on above: Performed By: #### L 100.0100, L300.3900 #### [facility] [address] [place], [address] MCV (RBC) [Entitic vol] 92.2 fL Normal 80-94 [facility] Comment on above: Performed By: #### L 100.0100, L300.3900 #### [facility] [address] [place], [address] Monocytes/100 WBC (Bld) 7.4 % Normal 0-10 [facility] Comment on above: Performed By: #### L 100.0100, L300.3900 #### [facility] [address] [place], [address] Neutrophils/100 WBC (Bld) 69.6 % Normal 47-70 [facility] Comment on above: Performed By: #### L 100.0100, L300.3900 #### [facility] [address] [place], [address] Nucleated RBC (Bld) [#/Vol] 0 10*3/uL Normal 0-5 [facility] Comment on above: Performed By: #### L 100.0100, L300.3900 #### [facility] [address] [place], [address] Platelet mean volume (Bld) [Entitic vol] 9.1 fL Normal 6.2-12.0 [facility] Comment on above: Performed By: #### L 100.0100, L300.3900 #### [facility] [address] [place], [address] Platelets (Bld) [#/Vol] 219 10*3/uL Normal 150-450 [facility] Comment on above: Performed By: #### L 100.0100, L300.3900 #### [facility] [address] [place], [address] RBC (Bld) [#/Vol] 4.60 10*6/uL Normal 4.6-6.2 [facility] Comment on above: Performed By: #### L 100.0100, L300.3900 #### [facility] [address] [place], [address] RDW SD 42.7 fl Normal 35.1-43.9 [facility] Comment on above: Performed By: #### L 100.0100, L300.3900 #### [facility] [address] [place], [address] WBC (Bld) [#/Vol] 9.8 10*3/uL Normal 4.4-11.0 [facility] Comment on above: Performed By: #### L 100.0100, L300.3900 #### [facility] [address] [place], [address] Carbon dioxide, total [Moles /volume] in Central venous bloodOrdered By: Harry Polanco on 04-09-2025 CO2 [Moles/Vol] 20.0 mmol/L Low 21.0-32.0 [facility] Chloride assayOrdered By: Oj Polanco on 04-09-2025 Chloride [Moles/Vol] 103 mmol/L 98-108 [facility] Echo Complete W/ Contraston 04-09-2025 Echo Complete W/ Contrast [facility] Cardiovascular Services [address] [place] [address] Echo Complete W/ Contrast 04/10/25 0520 MR#: [id number] Acct: [id number] Name: SUMMER MA Rep #: [id number] : 1965 60 From: Venessa Porter MD Attending Dr: Dr. Anni Olson, DO Status: DIS I NO Ordering Dr: Bacilio Partida DO Date: 04/09/25 Location: [facility] Sex: M C Admitted: 04/09/25 Reason For Study Reason For Study: TIA/CVA Procedure This was a 2D Doppler, Color Flow transthoracic echocardiogram. The study was technically difficult. Contrast injection was performed. Exam performed portable in patient room. Left Ventricle Normal left ventricle. The estimated ejection fraction is 55???60 %. Right Ventricle Normal right ventricle. Atria Normal left atrium. Normal right atrium. Bubble contrast study is negative for PFO/ASD. Mitral Valve The mitral valve is structurally normal. No prolapse or stenosis seen. Tricuspid Valve Normal tricuspid valve. Aortic Valve Trisinus/trileaflet aortic valve. Pulmonic Valve The pulmonic valve is not well visualized. Great Vessels The aortic root is not well visualized. Pericardium/Pleural No pericardial effusion. Medication Diluted definity 2ml given slow IV push to enhance endocardial definition. Performed a rapid injection of agitated mix of 9 cc saline and 1cc air to assess for atrial septal defect. MMode/2D Measurements Calculations LVIDd: 4.5 cm IVSd: 0.96 cm Ao root diam: 3.3 cm LVIDs: 3.0 cm LVPWd: 0.82 cm RVDd: 4.0 cm FS: 32.6 % __ LAV(MOD-bp): 44.0 ml LVAd ap4: 31.2 cm2 SV(MOD-sp4): 59.4 ml LAV(MOD-bp) Indexed: 19.3 ml/m2 LVLd ap4: 8.3 cm SI(MOD-sp4): 26.1 ml/m2 LAV(MOD-sp2): 36.7 ml EDV(MOD-sp4): 94.6 ml LAV(MOD-sp4): 51.8 ml EDV(sp4-el): 99.1 ml LVAs ap4: 16.9 cm2 LVLs ap4: 6.8 cm ESV(MOD-sp4): 35.2 ml ESV(sp4-el): 35.6 ml EF(MOD-sp4): 62.8 % EF(sp4-el): 64.1 % __ SV(sp4-el): 63.5 ml LA A4 area: 18.4 cm2 LA dimension(2D): 4.6 cm __ RA A4 area: 15.7 cm2 Time Measurements MV dec time: 0.21 sec Doppler Measurements Calculations MV E max dre: 60.1 cm/sec Lat Peak E' Dre: 10.9 cm/sec Med Peak E' Dre: 10.8 cm/sec MV A max dre: 68.9 cm/sec E/E' lat: 5.5 E/E' med: 5.6 MV E/A: 0.87 __ MV V2 max: 86.4 cm/sec MV P1/2t max dre: 83.2 cm/sec Ao V2 max: 120.6 cm/sec MV max P.0 mmHg MV P1/2t: 93.0 msec Ao max P.8 mmHg MV V2 mean: 50.8 cm/sec MV dec slope: 262.0 cm/sec2 Ao V2 mean: 85.5 cm/sec MV mean P.2 mmHg MVA(P1/2t): 2.4 cm2 Ao mean P.3 mmHg MV V2 VTI: 31.5 cm Ao V2 VTI: 29.1 cm AV (velocity ratio): 0.78 __ LV V1 max: 99.7 cm/sec TR max dre: 222.7 cm/sec LV V1 max P.0 mmHg TR max P.8 mmHg LV V1 mean P.3 mmHg LV V1 mean: 70.4 cm/sec LV V1 VTI: 22.8 cm ECHO/Echo Complete W/ Contrast Interpretation Summary The estimated ejection fraction is 55???60 %. Normal LV systolic function No significant valvular abnormality. No previous echo to compare __ Ordering Physician: Bacilio Partida Referring Physician: Bacilio Partida Performed By: Alex Sosa RCS 04/10/25 8930 Date Venessa Porter MD CC: PHONE MANAGER-C Josy Marrero; Dr. Bacilio Partida DO; Dr. Anni Olson DO Date Dictated: 04/10/25519 Date Transcribed: 04/10/251549 Lumber Hacker: Signed Normal [facility] Emergency Department Summary on 04-09-2025 Emergency Department Summary [facility] Medical Records Department [address] [place] [address] Emergency Department Summary 04/09/25 MR#: [id number] Acct: [id number] Name: SUMMER MA Rep #: [id number] : 1965 60 From: Harry Polanco DO PCP: MARGARETH Dawson Status:REG ER Location: ED HPI History of [...] when he felt off and he states that he had to hold onto the end of the bed before continue to walk. He states that nothing like this is ever happened before. He states that he thought if he took his medications as the day went on things would get better but they are not. He states when he tried to walk in here he had to hold onto items as he felt very off balance. Patient denies any previous history of strokes denies any blood thinner medications PFSH [facility] Medical History (Updated 04/09/25 @ 16:[address] Harry Polanco, DO) Erectile dysfunction Hernia Diabetic peripheral neuropathy Type 2 diabetes mellitus Home Medications ???Medication ???Instructions ???Recorded ???Last Taken ???Type cholecalciferol (vitamin D3) 25 1,000 unit PO QDAY 05/17/18 Unknow n History mcg (1,000 unit) capsule cyanocobalamin (vitamin B-12) 1,000 mcg PO QDAY 05/17/18 Unknown History 1,000 mcg tablet (Vitamin B-12) multivitamin,tx-iro n-minerals 1 tab PO QDAY 05/17/18 Unknown His tory (Complete Multivitamin tablet) omega-3 fatty acids 1,000 mg 2,000 mg PO BID 06/10/21 Unknown H istory capsule (Fish Oil Concentrate) empagliflozin 25 mg-metformin ER 1 tab PO DAILY #90 ea 11/29/24 Unk nown Rx 1,000 mg tablet,extended release 24hr (Synjardy XR) gabapentin 300 mg capsule 1,200 mg (4 x 300 mg) PO BID 3 Unknown Rx months #720 caps glimepiride 4 mg tablet 4 mg PO QAM #90 tabs 11/29/24 Unkn own Rx lisinopril 10 mg tablet 10 mg PO DAILY #90 tabs 11/29/24 U nknown Rx metformin 1,000 mg tablet 1,000 mg PO QHS #90 tabs 11/29/24 Unknown Rx rosuvastatin 20 mg tablet 20 mg PO DAILY #90 tabs 11/29/24 U nknown Rx semaglutide 2 mg/dose (8 mg/3 mL) 2 mg (0.75 mL) subcut QWEEK 3 Unknown Rx subcutaneous pen injector months #9.75 mL blood sugar diagnostic (OneTouch #100 ea 11/30/24 Unknown Rx Ultra Test strips) blood-glucose meter (OneTouch #1 ea 11/30/24 Unknown Rx Ultra2 Meter) lancets 30 gauge (OneTouch #200 [...] following commands knew that he was at [facility] year is 2024. NIH of 0 [...] Oxygen Delivery Method Room Air Room Air (more content not included)... Normal [facility] Eosinophil percentageOrdered By: Harry Polanco on 04-09-2025 Eosinophils/100 WBC (Bld) 1.1 % 0-5 [facility] Erythrocyte distribution wid th ratioOrdered By: Harry Polanco on 04-09-2025 Erythrocyte distribution width (RBC) [Ratio] 12.8 % 11.6-14.6 [facility] Erythrocyte distribution wid th standard deviationOrdered By: Harry Polanco on 04-09-2025 Erythrocyte distribution width (RBC) [Ratio] 42.7 fl 35.1-43.9 [facility] Glomerular filtration rate ( GFR) estimation/1.73 sq m using serum, plasma, or whole bOrdered By: Harry Polanco on 04-09-2025 GFR/1.73 sq M.predicted among non-blacks MDRD (S/P/Bld) [Vol rate/Area] 99 mL/min/{1.73_m2} >60 [facility] Comment on above: mL/min/1.73m2 CKD-EP I Creatinine Equation (2020) [facility] deOrdered By: Harry Polanco on 04-09-2025 Glucose [Mass/Vol] 193 mg/dL High 74-106 [facility] Comment on above: MANAGEMENT OF PATIEN T CARE PER NURSING PROTOCOL H AND P Exam - Hospitaliston 04-09-2025 H&P Exam - Hospitalist [facility] Medical Records Department [address] [place] [address] H P Exam - Hospitalist 04/09/25 1601 MR#: [id number] Acct: [id number] Name: SUMMER MA Rep #: [id number] : 1965 60 From: Bacilio Partida DO PCP: MARGARETH Dawson Status:ADM DORIS Location: [place] [address] HPI - General General Date of Admission: 04/09/25 Date of Service: 04/09/25 Chief Complaint: Dizziness and disequilibrium HPI Narrative SUMMER MA, is a 60 M who presented to [facility] ED on 04/09/2025 with dizziness and disequilibrium. 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 Patient went to bed around 1:30 AM and had no issues at that time. However when he woke up around 5:30 AM he felt dizzy. When he got out of bed he had difficulty with balance and ambulation without holding onto something. Only other time he has felt like this was when he was initially diagnosed with diabetes about 10 years ago and his blood sugars were very high. The symptoms did not improve quickly so he called EMS and was brought in for further evaluation. In the ED he was mildly hypertensive to the 140s and 150s systolic but otherwise hemodynamically stable on room air. CBC and BMP were benign. Glucose 216 but notably last A1c was 7.3% in November and his A1c values have typically been between 7 [address] 8%. CT brain and CTA head/neck were unremarkable. EKG showed normal sinus rhythm, no ischemic changes. Was evaluated by teleneurology who recommended admission for stroke workup. Hospitalist was then contacted for admission. I saw the patient at bedside in the ED. Patient was pleasant and sitting back comfortably in bed, in no acute distress. Reports very mild dizziness at rest, improved from this morning. Has not gotten out of bed since arrival to the ED. He denies any recent illnesses. Lives at home and typically has good functional status at baseline. He works full-time and was concerned about missing work with hospitalization but was agreeable to coming in. No other acute concerns noted. Will be admitted for further management. [facility] Medical History (Updated 04/09/25 @ 16:[address] Harry Polanco, DO) Non-smoker Erectile dysfunction Hernia Diabetic peripheral neuropathy Type 2 diabetes mellitus Home Medications ???Medication ???Instructions ???Recorded ???Last Taken ???Type cholecalciferol (vitamin D3) 25 1,000 unit PO QDAY 05/17/18 Unknow n History mcg (1,000 unit) capsule cyanocobalamin (vitamin B-12) 1,000 mcg PO QDAY 05/17/18 Unknown History 1,000 mcg tablet (Vitamin B-12) multivitamin,tx-iro n-minerals 1 tab PO QDAY 05/17/18 Unknown His tory (Complete Multivitamin tablet) omega-3 fatty acids 1,000 mg 2,000 mg PO BID 06/10/21 Unknown H istory capsule (Fish Oil Concentrate) empagliflozin 25 mg-metformin ER 1 tab PO DAILY #90 ea 11/29/24 Unk nown Rx 1,000 mg tablet,extended release 24hr (Synjardy XR) gabapentin 300 mg capsule 1,200 mg (4 x 300 mg) PO BID 3 Unknown Rx months #720 caps glimepiride 4 mg tablet 4 mg PO QAM #90 tabs 11/29/24 Unkn own Rx lisinopril 10 mg tablet 10 mg PO DAILY #90 tabs 11/29/24 U nknown Rx metformin 1,000 mg tablet 1,000 mg PO QHS #90 tabs 11/29/24 Unknown Rx rosuvastatin 20 mg tablet 20 mg PO DAILY #90 tabs 11/29/24 U nknown Rx semaglutide 2 mg/dose (8 mg/3 mL) 2 mg (0.75 mL) subcut QWEEK 3 Unknown Rx subcutaneous pen injector months #9.75 mL blood sugar diagnostic (OneTouch #100 ea 11/30/24 Unknown Rx Ultra Test strips) blood-glucose meter (OneTouch #1 ea 11/30/24 Unknown Rx Ultra2 Meter) lancets 30 gauge (OneTouch #200 ea 11/30/24 Unknown Rx UltraSoft 2 Lancet) Allergy/AdvReac Type Severity Reaction Status Date / Time No Known Allergies Allergy Verified 04/09/25 13:57 Surgical History Labral tear of long head of right biceps tendon History of arthroscopic knee surgery History of rotator cuff surgery Social History Smoking Status: Never smoker ROS Constitutional Constitutional: Denies chills, fatigue, fever(s) or weakness Eyes Eyes: Denies change in vision Cardiovascular Cardiovascular: Denies chest pain, dyspnea on exertion, edema, lightheadedness or palpitations Respiratory/Chest Respiratory/Chest: Denies cough or shortness of breath at rest Gastrointestinal Gastrointestinal: Denies abdominal pain, constipation, diarrhea, nausea or vomiting Genitourinary Genitourinary: Denies dysuria Musculoskeletal Musculoskeletal: Denies arthralgias or myalgias Neurologic Neurologic: Reports abnormal gait, disequilibrium and dizziness; Denies focal weakness, headache(s), numbness or tingling (more content not included)... Normal [facility] Hematocrit Auto (Bld) [Volum e fraction]Ordered By: Harry Polanco on 04-09-2025 Hematocrit (Bld) [Volume fraction] 42.4 % 40-54 [facility] Hemoglobin A1con 04-09-2025 HbA1c (Bld) [Mass fraction] 7.2 % High <=5.6 [facility] Comment on above: Result Comment: Norm al < 5.7 % Prediabetic 5.7 - 6.4 % Diabetic >or= 6.5 % Please note range changes. Performed By: #### L 500.4100, L500.2500, L100.0500 #### [facility] [address] [place], [address] Hemoglobin A1c percentageOrd ered By: Bacilio Partida on 04-09-2025 HbA1c (Bld) [Mass fraction] 7.2 % High <5.7 [facility] Comment on above: Normal < 5.7 % Predi abetic 5.7 - 6.4 % Diabetic >or= 6.5 % Please note range changes. Hemoglobin measurementOrdere d By: Harry Polanco on 04-09-2025 Hemoglobin (Bld) [Mass/Vol] 15.2 g/dL 13.0-16.5 [facility] Immature granulocytes/100 WB C Auto (Bld)Ordered By: Harry Polanco on 04-09-2025 Immature granulocytes/100 WBC (Bld) 0.600 % 0.0-0.9 [facility] Comment on above: IG% - Immature Granu locytes (promyelocytes, myelocytes and metamyelocytes) > 1% indicates that a LEFT SHIFT is Present. International normalized rat io (INR) calculationOrdered By: Harry Polanco on 04-09-2025 INR Coag (Bld) [Relative time] 1.1 {INR} [facility] L499.0042on 04-09-2025 Trop T High Sen 10 ng/L Normal <=22 [facility] Comment on above: Order Comment: Comme nts: NPO at [place] prior to lipid panel Performed By: #### L 500.4100, L500.2500, L100.0500 #### [facility] [address] [place], [address] L499.0043on 04-09-2025 Trop T High Sen 10 ng/L Normal <=22 [facility] Comment on above: Order Comment: Comme nts: NPO at [place] prior to lipid panel Performed By: #### L 500.4100, L500.2500, L100.0500 #### [facility] [address] [place], [address] L501.4021on 04-09-2025 Trop T High Sen 12 ng/L Normal <=22 [facility] Comment on above: Performed By: #### L 500.4100, L500.2500, L100.0500 #### [facility] [address] [place], [address] MCV (mean corpuscular volume ) determinationOrdered By: Harry Polanco on 04-09-2025 MCV (RBC) [Entitic vol] 92.2 fL 80-94 [facility] Magnetic resonance imaging r eportOrdered By: Harsh Greer on 04-09-2025 Study [address] [facility] Imaging Services [address] [facility] [place] [address] Brain without Contrast MR#: [id number] Acct: [id number] Name: SUMMER MA Rep #: [id number] : 1965 M 60 From: Brian Greer MD PCP: MARGARETH Dawson Status: ADM DORIS Study:Brain without Contrast Date of Exam: 04/09/25 Exam# [id number] Ordering Dr: Bacilio Guan DO PROCEDURE: BRAIN WITHOUT CONTRAST 04/09/2025 REASON FOR EXAM: CVA RULE OUT TECHNIQUE: BRAIN WITHOUT CONTRAST Multiplanar and multisequence images were obtained. COMPARISON: Same day CT. FINDINGS: Mild global parenchymal atrophy. No evidence of acute hemorrhage or infarction. No extra-axial blood or fluid collections. The paranasal sinuses are clear. MRI/Brain without Contrast IMPRESSION: No acute intracranial abnormality. Reading Location: [id number] CC: PHONE MANAGER-C Josy Marrero; Dr. Bacilio Partida, ~ Lumber Hacker: Signed [facility] Mean corpuscular hemoglobin (MCH) determinationOrdered By: Harry Polanco on 04-09-2025 MCH (RBC) [Entitic mass] 33.0 pg High 27.0-32.0 [facility] Mean corpuscular hemoglobin concentration (MCHC) determinationOrdered By: Harry Polanco on 04-09-2025 MCHC (RBC) [Mass/Vol] 35.8 g/dL 32-36 [facility] Mean platelet volume determi nationOrdered By: Harry Polanco on 04-09-2025 Platelet mean volume (Bld) [Entitic vol] 9.1 fL 6.2-12.0 [facility] Monocyte percentageOrdered B y: Harry Polanco on 04-09-2025 Monocytes/100 WBC (Bld) 7.4 % 0-10 [facility] Neutrophil percentageOrdered By: Harry Polanco on 04-09-2025 Neutrophils/100 WBC (Bld) 69.6 % 47-70 [facility] Nucleated red blood cell per centageOrdered By: Harry Polanco on 04-09-2025 Nucleated RBC/100 WBC (Bld) [Ratio] 0 % 0-5 [facility] Partial Thromboplast Timeon 04-09-2025 aPTT Coag (Bld) [Time] 24.6 s Normal 24.1-36.2 [facility] Comment on above: Performed By: #### L 500.4100, L500.2500, L100.0500 #### [facility] [address], [place], [id number] Platelet countOrdered By: Oj Polanco on 04-09-2025 Platelets (Bld) [#/Vol] 219 10*3/uL 150-450 [facility] Potassium measurement (mass/ volume)Ordered By: Harry Polanco on 04-09-2025 Potassium (Unsp spec) [Mass/Vol] 3.9 mmol/L 3.3-5.1 [facility] Prothrombin Time w/INRon INR Coag (PPP) [Relative time] 1.1 {INR} Normal [facility] Comment on above: Performed By: #### L 500.4100, L500.2500, L100.0500 #### [facility] [address] [place], [address] PT Coag (PPP) [Time] 14.1 s Normal 11.7-14.9 [facility] Comment on above: Performed By: #### L 500.4100, L500.2500, L100.0500 #### [facility] [address] [place], [address] INR Normal [facility] Comment on above: Result Comment: This specimen has been REJECTED due to Laboratory criteria: Quanity Not Sufficient. KATIE MIRANDA has been notified of need of recollection. 04/09/25 1431 Christi Livingston Performed By: #### L 100.0100, L300.3900 #### [facility] [address] [place], [address] PROTIME Normal 11.7-14.9 [facility] Comment on above: Result Comment: This specimen has been REJECTED due to Laboratory criteria: Quanity Not Sufficient. KATIE MIRANDA has been notified of need of recollection. 04/09/25 1431 Christi Livingston Performed By: #### L 100.0100, L300.3900 #### [facility] [address] [place], [address] Prothrombin timeOrdered By: Harry Polanco on 04-09-2025 PT Coag (PPP) [Time] 14.1 s 11.7-14.9 [facility] RBC Auto (Bld) [#/Vol]Ordere d By: Harry Polanco on 04-09-2025 RBC (Bld) [#/Vol] 4.60 10*6/uL 4.6-6.2 [facility] STROKE Brain/Head without Co nton 04-09-2025 STROKE Brain/Head without Cont [facility] Imaging Services [address] [place] [address] STROKE Brain/Head without Cont MR#: [id number] Acct: [id number] Name: SUMMER MA Rep #: [id number] : 1965 M 60 From: Camron Mann MD PCP: MARGARETH Dawson Status: REG ER Study: STROKE Brain/Head without Cont Date of Exam: 0 04/09/25 Exam# [id number] Ordering Dr: Harry Polanco DO PROCEDURE: STROKE BRAIN/HEAD WITHOUT CONT [...] consistent changes, no acute findings Reading Location: [id number] CC: PHONE MANAGER-Lucio Marrero; Dr. Harry Polanco DO Lumber Hacker: Signed Normal [facility] STROKE CTA Head AND Neck W/C onon 04-09-2025 STROKE CTA Head AND Neck W/Con [facility] Imaging Services [address] [place] [address] STROKE CTA Head AND Neck W/Con MR#: [id number] Acct: [id number] Name: SUMMER MA Rep #: [id number] : 1965 M 60 From: Camron Mann MD PCP: MARGARETH Dawson Status: REG ER Study: STROKE CTA Head AND Neck W/Con Date of Exam: 0 04/09/25 Exam# [id number] Ordering Dr: Harry Polanco DO PROCEDURE: STROKE CTA HEAD AND [...] RIGHT Vertebral: Unremarkable. LEFT Vertebral: Unremarkable. Anatomy: [place] of [place] anatomy is normal. Aneurysm or avm: No intracranial aneurysms or large vascular malformations are identified. No suspicious enhancing lesion, no airway narrowing or deviation. No suspicious adenopathy. Thyroid gland is unremarkable, lung apices are clear, incidental note is made of a prominent large left internal jugular vein CT/STROKE CTA Head AND Neck W/Con IMPRESSION: No CTA evidence of vaso occlusive disease No demonstrated aneurysm or vascular malformation Patent vertebral arteries No CTA evidence of CCA or ICA stenosis No suspicious enhancing lesion airway narrowing or deviation. Reading Location: [id number] CC: MARGARETH Marrero; Dr. Harry Polanco DO Lumber Hacker: Signed Normal [facility] Serum creatinine measurement (mass/volume)Ordered By: Harry Polanco on 04-09-2025 Creatinine [Mass/Vol] 0.85 mg/dL 0.70-1.20 [facility] Serum glucose measurement (m ass/volume)Ordered By: Harry Polanco on 04-09-2025 Glucose [Mass/Vol] 216 mg/dL High 70-99 [facility] Serum or plasma calcium kate urement (mass/volume)Ordered By: Harry Polanco on 04-09-2025 Calcium [Mass/Vol] 9.6 mg/dL 7.6-11.0 [facility] Serum or plasma urea nitroge n measurement (mass/volume)Ordered By: Harry Polanco on 04-09-2025 Urea nitrogen [Mass/Vol] 11 mg/dL 4-19 [facility] Sodium levelOrdered By: Kun Polanco on 04-09-2025 Sodium [Moles/Vol] 136 mmol/L 133-145 [facility] TSH DL <= 0.005 mIU/L QnOrde red By: Bacilio Partida on 04-09-2025 TSH Qn 1.130 uIU/mL 0.300-4.200 [facility] Thyroid Stim Hormone (TSH)on 04-09-2025 TSH 1.130 uIU/mL Normal 0.300-4.200 [facility] Comment on above: Performed By: #### L 500.4100, L500.2500, L100.0500 #### [facility] [address] [place], [address] Troponin T.cardiac [Mass/vol ume] in Serum or Plasma by High sensitivity methodOrdered By: Harry Polanco on 04-09-2025 Troponin T.cardiac High sensitivity method [Mass/Vol] 10 ng/L <22 [facility] Troponin T.cardiac High sensitivity method [Mass/Vol] 10 ng/L <22 [facility] Troponin T.cardiac High sensitivity method [Mass/Vol] 12 ng/L <22 [facility] White blood cell (WBC) count Ordered By: Harry Polanco on 04-09-2025 WBC (Bld) [#/Vol] 9.8 10*3/uL 4.4-11.0 [facility] aPTTon 04-09-2025 aPTT [facility] CBC W/Diff, Automatedon 11-11 Absolute Lymph 2.25 X10 3/uL Normal 0.83-4.51 [facility] Comment on above: Performed By: #### L 100.0100, L501.9985, L501.9910, L500.4100, L500.4050 #### [facility] [address] [place], [address] Absolute Neut 4.0 X10 3/uL Normal 2.0-7.7 [facility] Comment on above: Performed By: #### L 100.0100, L501.9985, L501.9910, L500.4100, L500.4050 #### [facility] [address] [place], [address] Basophils/100 WBC (Bld) 0.9 % Normal 0-1 [facility] Comment on above: Performed By: #### L 100.0100, L501.9985, L501.9910, L500.4100, L500.4050 #### [facility] [address] [place], [address] Eosinophils/100 WBC (Bld) 2.3 % Normal 0-5 [facility] Comment on above: Performed By: #### L 100.0100, L501.9985, L501.9910, L500.4100, L500.4050 #### [facility] [address] [place], [address] Erythrocyte distribution width (RBC) [Ratio] 12.9 % Normal 11.6-14.6 [facility] Comment on above: Performed By: #### L 100.0100, L501.9985, L501.9910, L500.4100, L500.4050 #### [facility] [address] [place], [address] Hematocrit (Bld) [Volume fraction] 47.5 % Normal 40-54 [facility] Comment on above: Performed By: #### L 100.0100, L501.9985, L501.9910, L500.4100, L500.4050 #### [facility] [address] [place], [address] Hemoglobin (Bld) [Mass/Vol] 16.6 g/dL High 13.0-16.5 [facility] Comment on above: Performed By: #### L 100.0100, L501.9985, L501.9910, L500.4100, L500.4050 #### [facility] [address] [place], [address] IG% 0.300 Normal 0.0-0.9 [facility] Comment on above: Result Comment: IG% - Immature Granulocytes (promyelocytes, myelocytes and metamyelocytes) > 1% indicates that a LEFT SHIFT is Present. Performed By: #### L 100.0100, L501.9985, L501.9910, L500.4100, L500.4050 #### [facility] [address] [place], [address] Lymphocytes/100 WBC (Bld) 32.1 % Normal 19-41 [facility] Comment on above: Performed By: #### L 100.0100, L501.9985, L501.9910, L500.4100, L500.4050 #### [facility] [address] [place], [address] MCH (RBC) [Entitic mass] 31.3 pg Normal 27.0-32.0 [facility] Comment on above: Performed By: #### L 100.0100, L501.9985, L501.9910, L500.4100, L500.4050 #### [facility] [address] [place], [address] MCHC (RBC) [Mass/Vol] 34.9 g/dL Normal 32-36 [facility] Comment on above: Performed By: #### L 100.0100, L501.9985, L501.9910, L500.4100, L500.4050 #### [facility] [address] [place], [address] MCV (RBC) [Entitic vol] 89.6 fL Normal 80-94 [facility] Comment on above: Performed By: #### L 100.0100, L501.9985, L501.9910, L500.4100, L500.4050 #### [facility] [address] [place], [address] Monocytes/100 WBC (Bld) 7.8 % Normal 0-10 [facility] Comment on above: Performed By: #### L 100.0100, L501.9985, L501.9910, L500.4100, L500.4050 #### [facility] [address] [place], [address] Neutrophils/100 WBC (Bld) 56.6 % Normal 47-70 [facility] Comment on above: Performed By: #### L 100.0100, L501.9985, L501.9910, L500.4100, L500.4050 #### [facility] [address] [place], [address] Nucleated RBC (Bld) [#/Vol] 0 10*3/uL Normal 0-5 [facility] Comment on above: Performed By: #### L 100.0100, L501.9985, L501.9910, L500.4100, L500.4050 #### [facility] [address] [place], [address] Platelet mean volume (Bld) [Entitic vol] 9.5 fL Normal 6.2-12.0 [facility] Comment on above: Performed By: #### L 100.0100, L501.9985, L501.9910, L500.4100, L500.4050 #### [facility] [address] [place], [address] Platelets (Bld) [#/Vol] 239 10*3/uL Normal 150-450 [facility] Comment on above: Performed By: #### L 100.0100, L501.9985, L501.9910, L500.4100, L500.4050 #### [facility] [address] [place], [address] RBC (Bld) [#/Vol] 5.30 10*6/uL Normal 4.6-6.2 [facility] Comment on above: Performed By: #### L 100.0100, L501.9985, L501.9910, L500.4100, L500.4050 #### [facility] [address] [place], [address] RDW SD 42.2 fl Normal 35.1-43.9 [facility] Comment on above: Performed By: #### L 100.0100, L501.9985, L501.9910, L500.4100, L500.4050 #### [facility] [address] [place], [address] WBC (Bld) [#/Vol] 7.0 10*3/uL Normal 4.4-11.0 [facility] Comment on above: Performed By: #### L 100.0100, L501.9985, L501.9910, L500.4100, L500.4050 #### [facility] [address] [place], [address] Comprehensive Metabolic Prof [facility] [facility] 11[facility]-2024 Albumin [Mass/Vol] 4.5 g/dL Normal 3.2-5.0 [facility] Comment on above: Performed By: #### L 100.0100, L501.9985, L501.9910, L500.4100, L500.4050 #### [facility] [address] [place], [address] Albumin/Globulin [Mass ratio] 1.3 {ratio} Normal 0.9-2.4 [facility] Comment on above: Performed By: #### L 100.0100, L501.9985, L501.9910, L500.4100, L500.4050 #### [facility] [address] [place], [address] ALK P 40 U/L Low 45-117 [facility] Comment on above: Performed By: #### L 100.0100, L501.9985, L501.9910, L500.4100, L500.4050 #### [facility] [address] [place], [address] ALT [Catalytic activity/Vol] 34 U/L Normal 16-61 [facility] Comment on above: Performed By: #### L 100.0100, L501.9985, L501.9910, L500.4100, L500.4050 #### [facility] [address] [place], [address] AST [Catalytic activity/Vol] 21 U/L Normal 15-37 [facility] Comment on above: Performed By: #### L 100.0100, L501.9985, L501.9910, L500.4100, L500.4050 #### [facility] [address] [place], [address] Bilirubin [Mass/Vol] 0.70 mg/dL Normal 0.20-1.00 [facility] Comment on above: Result Comment: For patients on eltrombopag therapy, use of Dimension [place] TBIL is not recommended. Performed By: #### L 100.0100, L501.9985, L501.9910, L500.4100, L500.4050 #### [facility] [address] [place], [address] BUN/CRE 20.5 RATIO High 10-20 [facility] Comment on above: Performed By: #### L 100.0100, L501.9985, L501.9910, L500.4100, L500.4050 #### [facility] [address] [place], [address] CA,Total 10.1 mg/dL Normal 8.5-10.1 [facility] Comment on above: Performed By: #### L 100.0100, L501.9985, L501.9910, L500.4100, L500.4050 #### [facility] [address] [place], [address] Chloride [Moles/Vol] 102 mmol/L Normal 98-107 [facility] Comment on above: Performed By: #### L 100.0100, L501.9985, L501.9910, L500.4100, L500.4050 #### [facility] [address] [place], [address] CO2 [Moles/Vol] 28.0 mmol/L Normal 21.0-32.0 [facility] Comment on above: Performed By: #### L 100.0100, L501.9985, L501.9910, L500.4100, L500.4050 #### [facility] [address] [place], [address] Creatinine [Mass/Vol] 0.98 mg/dL Normal 0.70-1.30 [facility] Comment on above: Result Comment: The validity of the calculated GFR GFRAA in patients over 70 years has not been determined. Clinical correlation is essential. Performed By: #### L 100.0100, L501.9985, L501.9910, L500.4100, L500.4050 #### [facility] [address] [place], [address] EST GFR - AA 101 mL/min Normal >60 [facility] Comment on above: Result Comment: Afri can Cameroonian GFR Calc Performed By: #### L 100.0100, L501.9985, L501.9910, L500.4100, L500.4050 #### [facility] [address] [place], [address] GAP 8 Normal 5-15 [facility] Comment on above: Performed By: #### L 100.0100, L501.9985, L501.9910, L500.4100, L500.4050 #### [facility] [address] [place], [address] GFR/1.73 sq M.predicted among non-blacks MDRD (S/P/Bld) [Vol rate/Area] 83 mL/min/{1.73_m2} Normal >60 [facility] Comment on above: Result Comment: Non- GFR Calc Performed By: #### L 100.0100, L501.9985, L501.9910, L500.4100, L500.4050 #### [facility] [address] [place], [address] Globulin (S) [Mass/Vol] 3.4 g/dL Normal 2.2-4.2 [facility] Comment on above: Performed By: #### L 100.0100, L501.9985, L501.9910, L500.4100, L500.4050 #### [facility] [address] [place], [address] Glucose [Mass/Vol] 123 mg/dL High 74-106 [facility] Comment on above: Result Comment: Fast ing Glucose result from 100 to 125 mg/dL suggests IMPAIRED HOMEOSTASIS per A.D.A. criteria. Performed By: #### L 100.0100, L501.9985, L501.9910, L500.4100, L500.4050 #### [facility] [address] [place], [address] Potassium [Moles/Vol] 4.2 mmol/L Normal 3.5-5.1 [facility] Comment on above: Performed By: #### L 100.0100, L501.9985, L501.9910, L500.4100, L500.4050 #### [facility] [address] [place], [address] Sodium [Moles/Vol] 138 mmol/L Normal 136-145 [facility] Comment on above: Performed By: #### L 100.0100, L501.9985, L501.9910, L500.4100, L500.4050 #### [facility] [address] [place], [address] T PROT 7.9 g/dL Normal 6.4-8.2 [facility] Comment on above: Performed By: #### L 100.0100, L501.9985, L501.9910, L500.4100, L500.4050 #### [facility] [address] [place], [address] Urea nitrogen [Mass/Vol] 20 mg/dL High 7-18 [facility] Comment on above: Performed By: #### L 100.0100, L501.9985, L501.9910, L500.4100, L500.4050 #### [facility] [address] [place], [address] Hemoglobin A1con 11-29-2024 HbA1c (Bld) [Mass fraction] 7.3 % High 3.8-5.6 [facility] Comment on above: Result Comment: Norm al < 5.7 % Prediabetic 5.7 - 6.4 % Diabetic >or= 6.5 % Please note range changes. Performed By: #### L 100.0100, L501.9985, L501.9910, L500.4100, L500.4050 #### [facility] [address] [place], [address] Lipid Profileon 11-29-2024 Cholesterol [Mass/Vol] 94 mg/dL Normal 200 [facility] Comment on above: Result Comment: <200 mg/dL Desirable 200-240 mg/dL Borderline >240 mg/dL High Risk Performed By: #### L 100.0100, L501.9985, L501.9910, L500.4100, L500.4050 #### [facility] [address] [place], [address] Cholesterol in HDL [Mass/Vol] 37 mg/dL Low [facility] Comment on above: Result Comment: The drugs N-Acetylcysteine and Metamizole may falsely depress this assay. Reference Range HDL <40 mg/dL Low HDL Cholesterol HDL >or= 60 mg/dL High HDL Cholesterol Performed By: #### L 100.0100, L501.9985, L501.9910, L500.4100, L500.4050 #### [facility] [address] [place], [address] Cholesterol in LDL [Mass/Vol] 20 mg/dL Normal 0-130 [facility] Comment on above: Performed By: #### L 100.0100, L501.9985, L501.9910, L500.4100, L500.4050 #### [facility] [address] [place], [address] Cholesterol in VLDL [Mass/Vol] 37 mg/dL Normal 5-40 [facility] Comment on above: Performed By: #### L 100.0100, L501.9985, L501.9910, L500.4100, L500.4050 #### [facility] [address] [place], [address] Triglyceride [Mass/Vol] 186 mg/dL Normal [facility] Comment on above: Result Comment: The drugs N-Acetylcysteine and Metamizole may falsely depress this assay. Serum Triglycerides Reference Interval Normal <150 mg/dL Borderline high 150 - 199 mg/dL High 200 - 499 mg/dL Very High > or = 500 mg/dL Performed By: #### L 100.0100, L501.9985, L501.9910, L500.4100, L500.4050 #### [facility] [address] [place], [address] PSA,Total - Annual Screenon 11-29-2024 PSA,TOT SCREEN 0.44 ng/mL Normal 0.00-4.00 [facility] Comment on above: Result Comment: This test was performed using the TPSA assay method for the [employer] chemistry system. Values obtained with different assay methods cannot be used interchangably. When changing PSA assays in the course of monitoring a patient, additional sequential testing should be carried out to confirm baseline values. Performed By: #### L 500.4100, L500.2500, L100.0500 #### [facility] [address] [place], [place], [address] Vital Signs Date Time Vital Sign Value Performing Clinician Faci lity 04-10-2025 14:14-0400 Body temperature 98.1 [degF] Josy Marrero PHONE MANAGER-C Work Phone: [facility] 04-10-2025 14:14-0400 Diastolic blood pressure 73 mm[Hg] Josy Marrero PHONE MANAGER-C Work Phone: [facility] 04-10-2025 14:14-0400 Heart rate 71 /min Josytayler Marrero PHONE MANAGER-C Work Phone: [facility] 04-10-2025 14:14-0400 Respiratory rate 16 /min Josytayler Marrero PHONE MANAGER-C Work Phone: [facility] 04-10-2025 14:14-0400 SaO2% (BldA) [Mass fraction] 97 % Josy Marrero PHONE MANAGER-C Work Phone: [facility] 04-10-2025 14:14-0400 Systolic blood pressure 128 mm[Hg] Josy Marrero PHONE MANAGER-C Work Phone: [facility] 04-10-2025 13:57-0400 Body height 182.88 cm Josy Marrero PHONE MANAGER-C Work Phone: [facility] 04-10-2025 13:57-0400 Body weight 116.5 kg Josy Marrero PHONE MANAGER-C Work Phone: [facility] 04-10-2025 12:14-0400 Body mass index (BMI) [Ratio] 34.8 kg/m2 Josy Marrero PHONE MANAGER-C Work Phone: [facility] 04-09-2025 16:27-0400 Body temperature 97.7 [degF] Josytayler NicholsMarrero PHONE MANAGER-C Work Phone: [facility] 04-09-2025 16:27-0400 Diastolic blood pressure 84 mm[Hg] Josytayler NicholsMarrero PHONE MANAGER-C Work Phone: [facility] 04-09-2025 16:27-0400 Heart rate 81 /min Josytayler NicholsMarrero PHONE MANAGER-C Work Phone: [facility] 04-09-2025 16:27-0400 Respiratory rate 14 /min Josytayler NicholsMarrero PHONE MANAGER-C Work Phone: [facility] 04-09-2025 16:27-0400 SaO2% (BldA) [Mass fraction] 98 % Josy Marrero PHONE MANAGER-C Work Phone: [facility] 04-09-2025 16:27-0400 Systolic blood pressure 147 mm[Hg] Josytayler NicholsMarrero PHONE MANAGER-C Work Phone: [facility] 04-09-2025 14:10-0400 Body mass index (BMI) [Ratio] 31.8 kg/m2 Josytayler Marrero PHONE MANAGER-C Work Phone: [facility] 04-09-2025 14:10-0400 Body weight 106.5 kg Josytayler NicholsMarrero PHONE MANAGER-C Work Phone: [facility] 04-09-2025 13:54-0400 Body height 182.88 cm Josy Marrero PHONE MANAGER-C Work Phone: [facility] 02-20-2025 19:06-0400 Body mass index (BMI) [Ratio] 34.4 kg/m2 Josytayler NicholsMarrero PHONE MANAGER-C Work Phone: [facility] 02-20-2025 19:06-0400 Body temperature 97.2 [degF] Josy Marrero PHONE MANAGER-C Work Phone: [facility] 02-20-2025 19:06-0400 Body weight 115.21 kg Josy Marrero PHONE MANAGER-C Work Phone: [facility] 02-20-2025 19:06-0400 Diastolic blood pressure 78 mm[Hg] Josy Marrero PHONE MANAGER-C Work Phone: [facility] 02-20-2025 19:06-0400 Heart rate 67 /min Josy Marrero PHONE MANAGER-C Work Phone: [facility] 02-20-2025 19:06-0400 Respiratory rate 18 /min Josy Marrero PHONE MANAGER-C Work Phone: [facility] 02-20-2025 19:06-0400 SaO2% (BldA) [Mass fraction] 96 % Josy Marrero PHONE MANAGER-C Work Phone: [facility] 02-20-2025 19:06-0400 Systolic blood pressure 130 mm[Hg] Josy Marrero PHONE MANAGER-C Work Phone: [facility] Encounters Encounter Date Encounter Type Care Provider Facility Start: 04-13-2025 ambulatory Josy Marrero PHONE MANAGER Faci lity:[facility] Start: 04-10-2025 Non-patient / Non-visit Dr. Anni Olson DO -[facility] Work Phone: Start: 04-10-2025 ambulatory Josy Marrero PHONE MANAGER Faci lity:[facility] Start: 04-09-2025 End: 04-10-2025 ambulatory Josy Marrero PHONE MANAGER Facility:[facility] Start: 04-09-2025 End: 04-10-2025 Evaluation and management of inpatient Dr. Bacilio Partida DO -[facility] Work Phone: Start: 04-09-2025 End: 04-10-2025 observation encounter Josy Marrero PHONE MANAGER-C Work Phone: -[facility] Start: 11-29-2024 End: 11-29-2024 ambulatory Josy Marrero PHONE MANAGER Facility:[facility] Start: 08-26-2022 Patient encounter status Josy Marrero PHONE MANAGER-C Work Phone: [facility] Procedures Date Procedure Procedure Detail Performing Clinician Start: 04-10-2025 Estimated creatinine clearance Josy Janes PHONE MANAGER-C Work Phone: Start: 04-09-2025 MRI of brain without contrast Josy Marrero PHONE MANAGER-C Work Phone: Start: 04-09-2025 Estimated creatinine clearance Josy Janes PHONE MANAGER-C Work Phone: Start: 04-09-2025 Prothrombin time Josytayler esquivelsindhupenny PHONE MANAGER-C Work Phone: Start: 04-09-2025 CT angiography of he ad and neck Josy Marrero PHONE MANAGER-C Work Phone: Start: 04-09-2025 CT of head without contrast Josy Marrero PHONE MANAGER-C Work Phone: Plan of Treatment Date Care Activity Detail Author Start: 04-10-[address] [facility] Start: 04-09-2025 Assessment of risk o f venous thromboembolism [facility] Start: 04-09-2025 Cardiac monitoring [facility] Start: 04-09-2025 Care regimes management [facility] Start: 04-09-2025 Catheterization of vein [facility] Start: 04-09-2025 Consultation [facility] Start: 04-09-2025 Elevation of head of bed [facility] Start: 04-09-2025 Exercises [facility] Start: 04-09-2025 Insertion of cathete r into peripheral vein [facility] Start: 04-09-2025 Notification of physician [facility] Start: 04-09-2025 Oxygen therapy [facility] Start: 04-09-2025 Patient referral to dietitian [facility] Start: 04-09-2025 Providing care accor ding to standard [facility] Start: 04-09-2025 Referral to occupati onal therapist [facility] Start: 04-09-2025 Referral to service [facility] Start: 04-09-2025 Speech therapy assessment [facility] Start: 04-09-2025 Telemedicine consult ation with patient [facility] Start: 04-09-2025 Tobacco use cessatio n education [facility] Start: 04-09-2025 End: 04-09-2025 [facility] Start: 04-09-2025 Vital signs measurements [facility] Start: 04-09-2025 Care of central veno us catheter [facility] Start: 04-09-2025 Following clinical p athway protocol [facility] Start: 04-09-2025 Verification routine [facility] Start: 04-09-2025 MRI of brain without contrast Brain without Contrast [facility] Start: 04-09-2025 Hospital admission, emergency, from emergency room, medical nature [facility] Start: 04-09-2025 Admission procedure [facility] Start: 04-09-2025 [facility] Start: 04-09-2025 Thyroid stimulating hormone measurement [facility] Start: 04-09-2025 X-ray of chest, PA a nd lateral views Chest PA and Lateral [facility] Start: 04-09-2025 End: 04-09-2025 [facility] Start: 04-09-2025 Oxygen therapy [facility] Cardiac event recording [facility] Hemoglobin A1c/Hemoglobin.total in Blood [facility] Troponin T.cardiac [Mass/volume] in Serum or Plasma by High sensitivity method [facility] Troponin T.cardiac [Mass/volume] in Serum or Plasma by High sensitivity method [facility] Payers Date Payer Category Payer Self-pay 2024 Unknown [id number] Self-pay [id number] Unknown [id number] 2.16.8 [id number] Unknown [id number] 2.16.8 [id number] Unknown [id number] 2.16.8 [id number] Unknown [id number] 2.16.8 [id number] Unknown [id number] 2.16.8 [id number] Unknown [id number] 2.16.8 [id number] Social History Date Type Detail Facility Start: 04-09-2025 End: 04-10-2025 Tobacco smoking status NHIS Never smoked tobacco (finding) [facility] Start: 1965 Sex Assigned At Male [facility] Medical Equipment Procedure Code Equipment Code Equipment Origin al Text Equipment Identifier Dates Blood Sugar Diagnostic (Onetouch Ultra Test) strip Start: 11-30-2024 Lancets (Onetouc h Ultrasoft 2 Lancet) 30 gauge misc Start: 11-30-2024 Blood Sugar Diagnostic (Relion Prime Test Strips) strip Start: 10-27-2023 End: 11-29-2024 Blood Sugar Diagnostic (Relion Prime Test Strips) strip Start: 11-29-2024 End: 11-30-2024 Blood Sugar Diagnostic (Onetouch Ultra Test) strip Start: 11-30-2024 Lancets (Onetouc h Ultrasoft 2 Lancet) 30 gauge misc Start: 11-30-2024 Blood Sugar Diagnostic (Relion Prime Test Strips) strip Start: 10-27-2023 End: 11-29-2024 Blood Sugar Diagnostic ([employer] Prime Test Strips) strip Start: 11-29-2024 End: 11-30-2024 Goals Date Patient Goal Desired Activity /State Functional Status Date Assessment Result Facility 04-10-2025 Functional status Ambulates [facility] Work Phone: Mental Status Date Assessment Result Facility 04-10-2025 Cognitive function Voice/Name [facility] Work Phone: 04-09-2025 Cognitive function Awake;Alert;A ppropriate;Fol lows Commands [facility] Work Phone: Clinical Notes 02-20-2025 to 04-10-2025 Note Date & Type Note Facility 04-10-2025 Consult note [facility] 04-10-2025 Discharge summary [facility] 04-10-2025 Hospital Discharge instructions Additional Instructions Date of Discharge: 04/10/25 [facility] Work Phone: 04-10-2025 Note [facility] Medical Records Department [address] [place] [address] Discharge Summary 04/10/25 1359 MR#: [id number] Acct: [id number] Name: SUMMER MA Rep #: [id number] : 1965 60 From: Anni Olson DO PCP: MARGARETH Dawson Status:ADM DORIS Location: [place] [address] Providers Date of Admission: 04/09/25 Date of Discharge: 04/10/25 Primary Care Physician: MRAGARETH Dawson Consultations 04/09/25 17:07 Consult: Tele-Neurology Routine Consulting Provider: [facility] Reason for Consult: Acute Ischemic Stroke/TIA EMERGENT Consult: No MD Notified: Yes Date Notified: 04/09/25 Time Notified: 17:40 Method of Notification: Answering Service Nursing Unit Staff Notify [facility] of Tele-Neurology Consult: Yes Reason For Visit: STROKELIKE SYMPTOMS Diagnosis Discharge Diagnosis (1) Dizziness: Status: Acute Code(s): R42 - Dizziness and giddiness Medications at Discharge Home Medications cholecalciferol (vitamin D3) 25 mcg (1,000 unit) capsule 1,000 unit PO QDAY 05/17/18 cyanocobalamin (vitamin B-12) 1,000 mcg tablet (Vitamin B-12) 1,000 mcg PO QDAY 05/17/18 multivitamin,yh-lffx-agdzzdto (Complete Multivitamin tablet) 1 tab PO QDAY 05/17/18 omega-3 fatty acids 1,000 mg capsule (Fish Oil Concentrate) 2,000 mg PO BID 06/10/21 empagliflozin 25 mg-metformin ER 1,000 mg tablet,extended release 24hr (Synjardy XR) 1 tab PO DAILY #90 ea 11/29/24 gabapentin 300 mg capsule 1,200 mg (4 x 300 mg) PO BID 3 months #720 caps 11/29/24 glimepiride 4 mg tablet 4 mg PO QAM #90 tabs 11/29/24 lisinopril 10 mg tablet 10 mg PO DAILY #90 tabs 11/29/24 metformin 1,000 mg tablet 1,000 mg PO QHS #90 tabs 11/29/24 rosuvastatin 20 mg tablet 20 mg PO DAILY #90 tabs 11/29/24 semaglutide 2 mg/dose (8 mg/3 mL) subcutaneous pen injector 2 mg (0.75 mL) subcut QWEEK 3 months #9.75 mL 11/29/24 blood sugar diagnostic (OneTouch Ultra Test strips) #100 ea 11/30/24 blood-glucose meter (OneTouch Ultra2 Meter) #1 ea 11/30/24 lancets 30 gauge (OneTouch UltraSoft 2 Lancet) #200 ea 11/30/24 Hospital Course Operations None Procedures 2-D Echocardiogram and - (CT brain/CTA head neck/MRI brain ) Summary of Care Provided Minutes Spent on Discharge: 30 Hospital Course: Mr. Ma is a 60-year-old white male who presented to the emergency department on 04/09/2025 with a chief complaint of dizziness and disequilibrium. Patient got out of bed about 5:30 AM and felt dizzy. He had difficulty with balance and ambulation without moving onto something. He stated he had a episode of this previously when his blood sugars were markedly elevated and he was diagnosed with diabetes however this was entirely similar to that. He had no nausea or vomiting. Vital signs on presentation showed temperature 97.7, heart rate 86, respiratory 18, blood pressure 154/82 and pulse ox 90%. CBC was unremarkable. Chemistry panel was unremarkable other than hyperglycemia with a blood sugar of 216. Troponin was normal. CT of the brain was unremarkable for acute findings. CTA of the head and neck was unremarkable for any acute findings or chronic occlusions. There was concern for stroke via telestroke in the emergency department and they recommended TIA/stroke workup with admission. He was admitted to PCU with stroke order set. MRI was ordered and negative for any acute infarct. Echocardiogram was performed and pending at the time of discharge. He was evaluated by neurology on the day of discharge. At the time of their evaluation his dizziness was gone and he actually started feeling better than before. He was complaining of a headache and was given Tylenol. They thought this was most likely a migraine and recommended a migraine cocktail however his headache had resolved by the time of my evaluation so we did not pursue migraine cocktail. They also recommended a 30-day event monitor to ensure that this was not related to any cardiac arrhythmia. He was monitored on telemetry during his hospital course and had negative arrhythmia during that time period. Given his symptoms were resolved, headache resolved and he was back to his baseline we discharged him home with no medication changes in stable condition on 04/10/2025. He is to follow-up with his primary care physician within the next 1 to 2 weeks and neurology within the next 2 to 3 months. Discharge diagnoses: Disequilibrium Dizziness Headache-suspected migraine DM-2-A1c 7.2 Hyperlipidemia-LDL 38 Essential hypertension Vitamin D deficiency Diabetic neuropathy Obesity Physical Exam Const alert, oriented x3, no apparent distress, no limitations, healthy appearing and well nourished; Negative for average body habitus Constitutional Narrative: Obese, upper middle-aged male, appears comfortable, watching television, nontoxic General Appearance: cooperative, comfortable, well kempt and (more content not included)... [facility] 04-09-2025 History and physi alexis note Note Date/Time April 09, 2025 6:28pm [facility] Medical Records Department [address] [place] [address] H&P Exam - Hospitalist 04/09/25 1601 MR#: [id number] Acct: [id number] Name: SUMMER MA Rep #:[id number] : 1965 60 From: Bacilio mc DO PCP: MARGARETH Dawson Status:ADM DORIS Location: [place] [address] HPI - General General Date of Admission: 04/09/25 Date of Service: 04/09/25 Chief Complaint: Dizziness and disequilibrium HPI Narrative SUMMER MA, is a 60 M who presented to [facility] ED on 04/09/2025 with dizziness and disequilibrium. Patient history is significant fortype 2 diabetes mellitus with neuropathy and hypertension. Patient went to bed around 1:30 AM and had no issues at that time. However when he woke up around 5:30 AM he felt dizzy. When he got out of bed he had difficulty with balance and ambulation without holding onto something. Only other time he has felt likethis was when he was initially diagnosed with diabetes about 10 years ago and his blood sugars were very high. The symptoms did not improve quickly so he called EMS and was brought in for further evaluation. In the ED he was mildly hypertensive to the 140s and 150s systolic but otherwise hemodynamically stable on room air. CBC and BMP were benign. Glucose 216 but notably last A1c was 7.3% in November and his A1c values have typically been between 7 [address] 8[address] brain and CTA head/neck were unremarkable. EKG showed normal sinus rhythm, no ischemic changes. Was evaluated by teleneurology who recommended admission for stroke workup. Hospitalist was then contacted for admission. I saw the patientat bedside in the ED. Patient was pleasant and sitting back comfortably in bed,in no acute distress. Reports very mild dizziness at rest, improved from this morning. Has not gotten out of bed since arrival to the ED. He denies any recent illnesses. Lives at home and typically has good functional status at baseline. He works full-time and was concerned about missing work with hospitalization but was agreeable to coming in. No other acute concerns noted. Will be admitted for further management. [facility] Medical History (Updated 04/09/25 @ 16:[address] Harry Polanco, DO) Non-smoker Erectile dysfunction Hernia Diabetic peripheral neuropathy Type 2 diabetes mellitus Home Medications ?Medication ?Instructions ?Recorded ?Last Taken ?Type cholecalciferol (vitamin D3) 25 1,000 unit PO QDAY 04/27 Unknown History mcg (1,000 unit) capsule cyanocobalamin (vitamin B-12) 1,000 mcg PO QDAY Unknown History 1,000 mcg tablet (Vitamin B-12) multivitamin,kb-hgno-vfglcnvz 1 tab PO QDAY 05/17/18 U nknown [...] Social History Smoking Status: Never smoker ROS Constitutional Constitutional: Denies chills, fatigue, fever(s) or weakness Eyes Eyes: Denies change in vision Cardiovascular Cardiovascular: Denies chest pain, dyspnea on exertion, edema, lightheadedness or palpitations Respiratory/Chest Respiratory/Chest: Denies cough or shortness of breath at rest Gastrointestinal Gastrointestinal: Denies abdominal pain, constipation, diarrhea, nausea or vomiting Genitourinary Genitourinary: Denies dysuria Musculoskeletal Musculoskeletal: Denies arthralgias or myalgias Neurologic Neurologic: Reports abnormal gait, disequilibrium and dizziness; Denies focal weakness, headache(s), numbness or tingling Vital Signs Vital Signs Vital Signs: 04/09/25 13:54 04/09/25 14:11 04/09/25 [...] 94 95 Oxygen Delivery Method Room Air Weight Weight: 106.5 kg Body Mass Index (BMI) 31.8 Physical Exam Const alert, oriented x3 and no apparent distress Constitutional Narrative: Upper middle-aged male, class I obesity, mildly fatigued appearing but otherwisesitting back comfortably in bed, conversing normally, in no acute distress. General Appearance: cooperative and comfortable HEENT normocephalic, head/scalp atraumatic, hearing grossly normal bilaterally, nasal mucous membranes and turbinates normal and moist oral mucous membranes Eyes PERRL, EOMs intact bilaterally and conjunctivae normal Neck full ROM Chest inspection of chest normal Resp normal respiratory effort, normal air movement, no use of accessory muscles and clear to auscultation bilaterally Cardio regular rate, regular rhythm, no murmurs and peripheral pulses 2+ throughout GI normal to inspection, nondistended, normoactive bowel sounds, soft to palpation,non-tender and non-distended Back/Spine normal ROM Extremity normal to inspection, full ROM and no pedal edema Skin no rashes or lesions noted Neuro oriented x3, CN's II-XII intact bilaterally, moves all extremities and no focal motor deficits Speech: speech normal Motor Exam: strength 5/5 throughout Psych mental status grossly normal Results Lab / Micro Data 04/09/25 14:05 04/09/25 14:05 Labs: Laboratory Results - last 24 hr 04/09/25 13:54: POC Glucose 193 H 04/09/25 14:05: WBC 9.8, RBC 4.60, Hgb 15.2, Hct 42.4, MCV 92.2, MCH 33.0 H, MCHC 35.8, RDW Std Deviation 42.7, RDW Coeff of Brody 12.8, Plt Count 219, MPV 9.1, Immature Gran % (Auto) 0.600, Neut % (Auto) 69.6, Lymph % (Auto) 20.8, Anson% (Auto) 7.4, Eos % (Auto) 1.1, Baso % (Auto) 0.5, Absolute Neuts (auto) 6.8, Absolute Lymphs (auto) 2.03, Nucleated RBC % 0, PT Cancelled, INR Cancelled, APTT Cancelled, Sodium 136, Potassium 3.9, Chloride 103, Carbon Dioxide 20.0 L, Anion Gap 14, BUN 11, Creatinine 0.85, Estim Creat Clear Calc 115.09, Est GFR (MDRD) Non-Af 99, BUN/Creatinine Ratio 12.5, Glucose 216 H, Calcium 9.6, Troponin T High Sens 12 04/09/25 14:35: PT 14.1, INR 1.1, APTT 24.6 Imaging Radiology Impression Brain CT 04/09/25 13:56 IMPRESSION: Age consistent changes, no acute findings Reading Location: [facility] Head/Neck CTA 04/09/25 13:57 IMPRESSION: No CTA evidence of vaso occlusive disease No demonstrated aneurysm or vascular malformation Patent vertebral arteries No CTA evidence of CCA or ICA stenosis No suspicious enhancing lesion airway narrowing or deviation. Reading Location: [facility] Assessment & Plan Assessment/Plan (1) Dizziness: PLAN: Plan Patient is a 60-year-old male who presented to [facility] ED on 04/09/2025 with dizziness and disequilibrium. 1. Dizziness and disequilibrium, CVA rule out ? Admit under observation status to PCU. Neurology consulted. Symptoms improved in the ED, suspect high-dose of home gabapentin could be contributing but cannot rule out stroke given his history as below. CT brain and CTA head/neck unremarkable. MRI brain and echo with bubble study ordered. Lipid panel, A1c and TSH ordered. Will treat with baby aspirin and continue home highintensity statin. PT/OT/case management consulted. 2. Type 2 diabetes mellitus with diabetic neuropathy ? Blood glucose 216 on admit. Last A1c 7.3% in November, repeat A1c ordered. Hold home metformin, glimepiride, empagliflozin and semaglutide. Will treat with sliding scale insulin with meals while inpatient, adjust as needed. Notably is on gabapentin 1200 mg twice daily at home. Reviewed OARRS and patient has been filling this regularly for the past few years. Continue gabapentin at this dose. 3. Hypertension ? Mildly hypertensive to the 140s to 150s systolic in the ED. Hold home lisinopril for permissive hypertension. 4. Hyperlipidemia ? Continue home statin as above. 5. Class I obesity ? BMI 34 on admit. Encouraged lifestyle modifications. Complicates hospital course, care and prognosis. DVT prophylaxis: SCDs CODE STATUS: Full code, verified Expected disposition: Home, 1 to 2 days Total clinical time spent by myself addressing the patient's medical issues, reviewing all the data, and collaborating with patient's care team: 75 minutes. Charges/Coding Visit Charges Inpatient E&M: 65789 Init Hosp L3 04/09/25 1828 <Electronically signed by Bacilio Partida DO> Cosigner Signature (if applicable): CC: MARGARETH Marrero; Dr. Bacilio Partida DO~ Signed [facility] Work Phone: [phone]) 162-496006-30-2025 History and physical note [facility] Medical Records Department [address] [place] [address] H&P Exam - Hospitalist 04/09/25 1601 MR#: [id number] Acct: [id number] Name: SUMMER MA Rep #:[id number] : 1965 60 From: Bacilio mc DO PCP: MARGARETH Dawson Status:ADM DORIS Location: [place] [address] HPI - General General Date of Admission: 04/09/25 Date of Service: 04/09/25 Chief Complaint: Dizziness and disequilibrium HPI Narrative SUMMER MA, is a 60 M who presented to [facility] ED on 04/09/2025 with dizziness and disequilibrium. Patient history is significant fortype 2 diabetes mellitus with neuropathy and hypertension. Patient went to bed around 1:30 AM and had no issues at that time. However when he wokeup around 5:30 AM he felt dizzy. When he got out of bed he had difficulty with balance and ambulation without holding onto something. Only other time he has felt likethis was when he was initially diagnosed with diabetes about 10 years ago and his blood sugars were very high. The symptoms did not improve quickly so he called EMS and was brought in for further evaluation. In the ED he was mildly hy pertensive to the 140s and 150s systolic but otherwise hemodynamically stable on room air. CBC and BMP were benign. Glucose 216 but notably last A1c was 7.3% in November and his A1c values have typically been between 7 and 8%. CT brain and CTA head/neck were unremarkable. EKG showed normal sinus rhythm, no ischemic changes. Was evaluated by teleneurology who recommended admission for stroke workup. Hospitalist was then contacted for admission. I saw the patientat bedside in the ED. Patient was pleasant and sitting back comfortably in bed,in no acute distress. Reports very mild dizziness at rest, improved from this morning. Has not gotten out of bed since arrival to the ED. He denies any recent illnesses. Lives at home and typically has good functional status at baseline. He works full-time and was concerned about missing work with hospitalization but was agreeable to coming in. No otheracute concerns noted. Will be admitted for further management. [facility] Medical History (Updated 04/09/25 @ 16:[address] Harry Polanco, DO) Non-smoker Erectile dysfunction Hernia Diabetic peripheral neuropathy Type 2 diabetes mellitus Home Medications ?Medication ?Instructions ?Recorded ?Last Taken ?Type cholecalciferol (vitamin D3) 25 1,000 unit PO QDAY 04/27 Unknown History mcg (1,000 unit) capsule cyanocobalamin (vitamin B-12) 1,000 mcg PO QDAY Unknown History 1,000 mcg tablet (Vitamin B-12) multivitamin,iw-ectw-ysujswpw 1 tab PO QDAY 05/17/18 U nknown [...] Social History Smoking Status: Never smoker ROS Constitutional Constitutional: Denies chills, fatigue, fever(s) or weakness Eyes Eyes: Denies change in vision Cardiovascular Cardiovascular: Denies chest pain, dyspnea on exertion, edema, lightheadedness or palpitations Respiratory/Chest Respiratory/Chest: Denies cough or shortness of breath at rest Gastrointestinal Gastrointestinal: Denies abdominal pain, constipation, diarrhea, nausea or vomiting Genitourinary Genitourinary: Denies dysuria Musculoskeletal Musculoskeletal: Denies arthralgias or myalgias Neurologic Neurologic: Reports abnormal gait, disequilibrium and dizziness; Denies focal weakness, headache(s), numbness or tingling Vital Signs Vital Signs Vital Signs: 04/09/25 13:54 04/09/25 14:11 04/09/25 [...] 94 95 Oxygen Delivery Method Room Air Weight Weight: 106.5 kg Body Mass Index (BMI) 31.8 Physical Exam Const alert, oriented x3 and no apparent distress Constitutional Narrative: Upper middle-aged male, class I obesity, mildly fatigued appearing but otherwisesitting back comfortably in bed, conversing normally, in no acute distress. General Appearance: cooperative and comfortable HEENT normocephalic, head/scalp atraumatic, hearing grossly normal bilaterally, nasal mucous membranes and turbinates normal and moist oral mucous membranes Eyes PERRL, EOMs intact bilaterally and conjunctivae normal Neck full ROM Chest inspection of chest normal Resp normal respiratory effort, normal air movement, no use of accessory muscles and clear to auscultation bilaterally Cardio regular rate, regular rhythm, no murmurs and peripheral pulses 2+ throughout GI normal to inspection, nondistended, normoactive bowel sounds, soft to palpation,non-tender and non-distended Back/Spine normal ROM Extremity normal to inspection, full ROM and no pedal edema Skin no rashes or lesions noted Neuro oriented x3, CN's II-XII intact bilaterally, moves all extremities and no focal motor deficits Speech: speech normal Motor Exam: strength 5/5 throughout Psych mental status grossly normal Results Lab / Micro Data 04/09/25 14:05 04/09/25 14:05 Labs: Laboratory Results - last 24 hr 04/09/25 13:54: POC Glucose 193 H 04/09/25 14:05: WBC 9.8, RBC 4.60, Hgb 15.2, Hct 42.4, MCV 92.2, MCH 33.0 H, MCHC 35.8, RDW Std Deviation 42.7, RDW Coeff of Brody 12.8, Plt Count 219, MPV 9.1, Immature Gran % (Auto) 0.600, Neut % (Auto) 69.6, Lymph % (Auto) 20.8, Anson% (Auto) 7.4, Eos % (Auto) 1.1, Baso % (Auto) 0.5, Absolute Neuts(auto) 6.8, Absolute Lymphs (auto) 2.03, Nucleated RBC % 0, PT Cancelled, INR Cancelled, APTT Cancelled, Sodium 136, Potassium 3.9, Chloride 103, Carbon Dioxide 20.0 L, Anion Gap 14, BUN 11, Creatinine 0.85, Estim Creat Clear Calc 115.09, Est GFR (MDRD) Non-Af 99, BUN/Creatinine Ratio 12.5, Dkgaour310 H, Calcium 9.6, Troponin T High Sens 12 04/09/25 14:35: PT 14.1, INR 1.1, APTT 24.6 Imaging Radiology Impression Brain CT 04/09/25 13:56 IMPRESSION: Age consistent changes, no acute findings Reading Location: [id number] Head/Neck CTA 04/09/25 13:57 IMPRESSION: No CTA evidence of vaso occlusive disease No demonstrated aneurysm or vascular malformation Patent vertebral arteries No CTA evidence of CCA or ICA stenosis No suspicious enhancing lesion airway narrowing or deviation. Reading Location: [id number] Assessment & Plan Assessment/Plan (1) Dizziness: PLAN: Plan Patient is a 60-year-old male who presented to [facility] ED on 04/09/2025 with dizziness and disequilibrium. 1. Dizziness and disequilibrium, CVA rule out ? Admit under observation status to PCU. Neurology consulted. Symptoms improved in the ED, suspect high-dose of home gabapentin could be contributing but cannot rule out stroke given his history as below. CT brain and CTA head/neck unremarkable. MRI brain and echo with bubble study ordered. Lipid panel, A1c and TSH ordered. Will treat with baby aspirin and continue home highintensity statin. PT/OT/case management consulted. 2. Type 2 diabetes mellitus with diabetic neuropathy ? Blood glucose 216 on admit. Last A1c 7.3% in November, repeat A1c ordered. Hold home metformin, glimepiride, empagliflozin and semaglutide. Will treat with sliding scale insulin with meals while inpatient, adjust as needed. Notably is on gabapentin 1200 mg twice daily at home. Reviewed OARRS and patient has been filling this regularly for the past few years. Continue gabapentin at this dose. 3. Hypertension ? Mildly hypertensive to the 140s to 150s systolic in the ED. Hold home lisinopril for permissive hypertension. 4. Hyperlipidemia ? Continue home statin as above. 5. Class I obesity ? BMI 34 on admit. Encouraged lifestyle modifications. Complicates hospital course, care and prognosis. DVT prophylaxis: SCDs CODE STATUS: Full code, verified Expected disposition: Home, 1 to 2 days Total clinical time spent by myself addressing the patient's medical issues, reviewing all the data, and collaborating with patient's care team: 75 minutes. Charges/Coding Visit Charges Inpatient E&M: 34384 Init Hosp L3 04/09/25 7724 Cosigner Signature (if applicable): CC: MARGARETH Marrero; Dr. Bacilio Partida, DO~ Signed [facility]06-30-2025 Discharge summary Author Harry Polanco [facility] Note Date/Time April 09, 2025 4:05 pm [facility] Medical Records Department [address] [place] [address] Emergency Department Summary 04/09/25 MR#: [id number] Acct: [id number] Name: SUMMER MA Rep #:[id number] : 1965 60 From: Harry Polanco DO PCP: MARGARETH Dawson Status:REG ER Location: ED HPI History of [...] of strokes denies any blood thinner medications [facility] Medical History (Updated 04/09/25 @ 16:[address] Harry Polanco DO) Erectile dysfunction Hernia Diabetic peripheral neuropathy Type 2 diabetes mellitus Home Medications ?Medication ?Instructions ?Recorded ?Last Taken ?Type cholecalciferol (vitamin D3) 25 1,000 unit PO QDAY 04/27 Unknown History mcg (1,000 unit) capsule cyanocobalamin (vitamin B-12) 1,000 mcg PO QDAY Unknown History 1,000 mcg tablet (Vitamin B-12) multivitamin,bq-ndco-cwlobomt 1 tab PO QDAY 05/17/18 U nknown [...] following commands knew that he was at [facility] year is 2024. NIH of 0 [...] % (Auto) 69.6 Lymph % (Auto) 20.8 Anson % (Auto) 7.4 Eos % (Auto) 1.1 [...] consistent changes, no acute findings Reading Location: [facility] Head/Neck CTA 04/09/25 13:57 IMPRESSION: No CTA evidence of vaso occlusive disease No demonstrated aneurysm or vascular malformation Patent vertebral arteries No CTA evidence of CCA or ICA stenosis No suspicious enhancing lesion airway narrowing or deviation. Reading Location: [facility] Discharge Plan Triage Chief Complaint: Dizziness ED Provider: Harry Polanco Dx/Rx/DC Orders Clinical Impression: Dizziness, Diabetes type 2, uncontrolled, Hypertension, Neuropathy Prescriptions: No Action cholecalciferol (vitamin D3) 1,000 unit capsule 1,000 unit PO QDAY cyanocobalamin (vitamin B-12) [Vitamin B-12] 1,000 mcg tablet 1,000 mcg PO QDAY multivitamin,aq-kkhi-ykmpepob [Complete Multivitamin] tablet 1 tab PO QDAY [...] Josy Marrero NP Referrals: Josy Marrero NP, PHONE MANAGER-C [Primary Care Provider] - Print Language: [place] Korean What to do if you have Problems For any increased pain, shortness of breath, bleeding, nausea or vomiting, chestpain, or any unexpected problems, contact your Primary Care Provider. Call [facility] ([phone]) or report to the closest Emergency Room. Call 911 if necessary. 04/09/25 1605 <Electronically signed by Harry Polanco DO> Cosigner Signature (if applicable): CC: PHONE MANAGER-C Josy Marrero ~ Signed [facility] Work Phone: [phone]) 856-644606-30-2025 [facility] [address] [place] [address] Emergency Department Summary 04/09/25 MR#: [id number] Acct: [id number] Name: SUMMER MA Rep #:[id number] : 1965 60 From: Harry Polanco DO PCP: MARGARETH Dawson Status:REG ER Location: ED HPI History of Present Illness Chief Complaint: Dizziness Narrative Narrative: Patient is a 60-year-old male past medical history of type 2 diabetes, neuropathy, hypertension whopresented to the emergency department chief complaint dizziness [...] of strokes denies any blood thinner medications [facility] Medical History (Updated 04/09/25 @ 16:[address] Harry Polanco DO) Erectile dysfunction Hernia Diabetic peripheral neuropathy Type 2 diabetes mellitus Home Medications ?Medication ?Instructions ?Recorded ?Last Taken ?Type cholecalciferol (vitamin D3) 25 1,000 unit PO QDAY 04/27 Unknown History mcg (1,000 unit) capsule cyanocobalamin (vitamin B-12) 1,000 mcg PO QDAY Unknown History 1,000 mcg tablet (Vitamin B-12) multivitamin,ic-hlje-wxdiyinh 1 tab PO QDAY 05/17/18 U nknown [...] following commands knew that he was at [facility] year is 2024. NIH of 0 [...] circulation stroke, ischemic stroke. Once workup is o btained reviewed he will be reevaluated. Patient is not a tenecteplase candidate as his symptoms started around 5:30 A. M and his last knownwell was 1:30 AM There was ultimately a delay in telehealth evaluation of the patient secondary to volume issues Ultimately patient was evaluated by teleneurologist Dr. Feliciano and they are recommending admissionfor further stroke workup and states that the [...] % (Auto) 69.6 Lymph % (Auto) 20.8 Anson % (Auto) 7.4 Eos % (Auto) 1.1 [...] consistent changes, no acute findings Reading Location: [facility] Head/Neck CTA 04/09/25 13:57 IMPRESSION: No CTA evidence of vaso occlusive disease No demonstrated aneurysm or vascular malformation Patent vertebral arteries No CTA evidence of CCA or ICA stenosis No suspicious enhancing lesion airway narrowing or deviation. Reading Location: [facility] Discharge Plan Triage Chief Complaint: Dizziness ED Provider: Harry Polanco Dx/Rx/DC Orders Clinical Impression: Dizziness, Diabetes type 2, uncontrolled, Hypertension, Neuropathy Prescriptions: No Action cholecalciferol (vitamin D3) 1,000 unit capsule 1,000 unit PO QDAY cyanocobalamin (vitamin B-12) [Vitamin B-12] 1,000 mcg tablet 1,000 mcg PO QDAY multivitamin,mu-icso-oqvimrbc [Complete Multivitamin] tablet 1 tab PO QDAY [...] Josy Marrero NP Referrals: Josy Marrero NP, PHONE MANAGER-C [Primary Care Provider] - Print Language: [place] Korean What to do if you have Problems For any increased pain, shortness of breath, bleeding, nausea or vomiting, chestpain, or any unexpected problems, contact your Primary Care Provider. Call [facility] ([phone]) or report tothe closest Emergency Room. Call 911 if necessary. 04/09/25 1605 Cosigner Signature (if applicable): CC: PHONE MANAGER-C Josy Marrero ~ Signed [facility]06-30-2025 Radiology Diagnostic study note [facility] Imaging Services [address] [place], [place] [address] STROKE Brain/Head without Cont MR#: [id number] Acct: [id number] Name: SUMMER MA Rep #: [id number] : 1965 M 60 From: Juan Mann MD PCP: MARGARETH Dawson Status: REG ER Study:STROKE Brain/Head without Cont Date of Exam: 04/09/25 Exam# [id number] Ordering Dr: Damaris Polanco DO PROCEDURE: STROKE [...] consistent changes, no acute findings Reading Location: [id number] CC: MARGARETH Marrero; Dr. Harry Polanco, ~ Lumber Hacker: Signed [facility]06-30-2025 Radiology Diagnostic study note [facility] Imaging Services [address] [place], [place] [address] STROKE CTA Head AND Neck W/Con MR#: [id number] Acct: [id number] Name: SUMMER MA Rep #: [id number] : 1965 M 60 From: Juan Mann MD PCP: MARGARETH Dawson Status: REG ER Study:STROKE CTA Head AND Neck W/Con Date of Exam: 04/09/25 Exam# [id number] Ordering Dr: Damaris Polanco DO PROCEDURE: STROKE [...] RIGHT Vertebral: Unremarkable. LEFT Vertebral: Unremarkable. Anatomy: [place] anatomy is normal. Aneurysm or [...] lesion airway narrowing or deviation. Reading Location: [id number] CC: MARGARETH Marrero; Dr. Harry Polanco DO ~ Lumber Hacker: Signed [facility]06-30-2025 Discharge summary Author Harry Polanco [facility] Note Date/Time April 09, 2025 4:05 pm [facility] Medical Records Department [address] [place] [address] Emergency Department Summary 04/09/25 MR#: [id number] Acct: [id number] Name: SUMMER MA Rep #:[id number] : 1965 60 From: Harry Polanco DO PCP: MARGARETH Dawson Status:REG ER Location: ED HPI History of [...] of strokes denies any blood thinner medications [facility] Medical History (Updated 04/09/25 @ 16:[address] Harry Polanco, DO) Erectile dysfunction Hernia Diabetic peripheral neuropathy Type 2 diabetes mellitus Home Medications ?Medication ?Instructions ?Recorded ?Last Taken ?Type cholecalciferol (vitamin D3) 25 1,000 unit PO QDAY 04/27 Unknown History mcg (1,000 unit) capsule cyanocobalamin (vitamin B-12) 1,000 mcg PO QDAY Unknown History 1,000 mcg tablet (Vitamin B-12) multivitamin,pw-tgwb-nffufwhl 1 tab PO QDAY 05/17/18 U nknown [...] following commands knew that he was at [facility] year is 2024. NIH of 0 [...] % (Auto) 69.6 Lymph % (Auto) 20.8 Anson % (Auto) 7.4 Eos % (Auto) 1.1 [...] consistent changes, no acute findings Reading Location: [facility] Head/Neck CTA 04/09/25 13:57 IMPRESSION: No CTA evidence of vaso occlusive disease No demonstrated aneurysm or vascular malformation Patent vertebral arteries No CTA evidence of CCA or ICA stenosis No suspicious enhancing lesion airway narrowing or deviation. Reading Location: [facility] Discharge Plan Triage Chief Complaint: Dizziness ED Provider: Harry Polanco Dx/Rx/DC Orders Clinical Impression: Dizziness, Diabetes type 2, uncontrolled, Hypertension, Neuropathy Prescriptions: No Action cholecalciferol (vitamin D3) 1,000 unit capsule 1,000 unit PO QDAY cyanocobalamin (vitamin B-12) [Vitamin B-12] 1,000 mcg tablet 1,000 mcg PO QDAY multivitamin,ih-ygec-wzfvokbc [Complete Multivitamin] tablet 1 tab PO QDAY [...] Josy Marrero NP Referrals: Josy Marrero NP, PHONE MANAGER-C [Primary Care Provider] - Print Language: South Korean What to do if you have Problems For any increased pain, shortness of breath, bleeding, nausea or vomiting, chestpain, or any unexpected problems, contact your Primary Care Provider. Call [facility] ([phone]) or report to the closest Emergency Room. Call 911 if necessary. 04/09/25 1605 <Electronically signed by Harry Polanco DO> Cosigner Signature (if applicable): CC: KEYANA-Lucio Marrero ~ Signed [facility] Work Phone: [phone] 186-285306-11-2025 Consult note Author Elayne Saucedo [facility] Note Date/Time April 10, 2025 3:24p m [facility] Medical Records Department [address] [place] [address] Counseling Note - Pharmacy 04/10/25 1449 MR#: [id number] Acct: [id number] Name: SUMMER MA Rep #:[id number] : 1965 60 From: Elayne Saucedo PCP: MARGARETH Dawson Status:ADM DORIS Y Location: [address] 1 Pharmacy [place] Med Reconciliation Pharmacy Service has performed discharge medication reconciliation for this patient. The patient's discharge medication list was reviewed for discrepancies and discrepancies were resolved. Medications at Discharge Home Medications cholecalciferol (vitamin D3) 25 mcg (1,000 unit) capsule 1,000 unit PO QDAY 05/17/18 cyanocobalamin (vitamin B-12) 1,000 mcg tablet (Vitamin B-12) 1,000 mcg PO QDAY 05/17/18 multivitamin,pr-ejol-pxhhjtlg (Complete Multivitamin tablet) 1 tab PO QDAY 05/17/18 omega-3 fatty acids 1,000 mg capsule (Fish Oil Concentrate) 2,000 mg PO BID 06/10/21 empagliflozin 25 mg-metformin ER 1,000 mg tablet,extended release 24hr (SynjardyXR) 1 tab PO DAILY #90 ea 11/29/24 gabapentin 300 mg capsule 1,200 mg (4 x 300 mg) PO BID 3 months #720 caps 11/29/24 glimepiride 4 mg tablet 4 mg PO QAM #90 tabs 11/29/24 lisinopril 10 mg tablet 10 mg PO DAILY #90 tabs 11/29/24 metformin 1,000 mg tablet 1,000 mg PO QHS #90 tabs 11/29/24 rosuvastatin 20 mg tablet 20 mg PO DAILY #90 tabs 11/29/24 semaglutide 2 mg/dose (8 mg/3 mL) subcutaneous pen injector 2 mg (0.75 mL) subcut QWEEK 3 months #9.75 mL 11/29/24 blood sugar diagnostic (OneTouch Ultra Test strips) #100 ea 11/30/24 blood-glucose meter (OneTouch Ultra2 Meter) #1 ea 11/30/24 lancets 30 gauge (OneTouch UltraSoft 2 Lancet) #200 ea 11/30/24 04/10/25 9779 <Electronically signed by Elayne Saucedo> Date _ Elayne Saucedo Cosigner Signature (if applicable): Date CC: ~ Signed [facility] Work Phone: [phone]) 130-160505-13-2025 Evaluation note* Diagnosis Onset Date Resolution Status Admit Date Diabetes type 2, uncontrolled acute February 20, 2025 6:58pm Tendonitis of shoulder, right acute February 20, 2025 6:58pm Diabetes type 2, uncontrolled acute April 09, 2025 4:02pm Dizziness acute April 09 4:02pm Neuropathy acute April 09 4:02pm Hypertension chronic April 09, 2 025 4:02pm [facility] Work Phone: Discharge summary Author Anni Olson [facility] Note Date/Time April 10, 2025 2:22p [facility] Medical Records Department [address] [place] [id number] Discharge Summary 04/10/25 1359 MR#: [id number] Acct: [id number] Name: SUMMER MA Rep #:[id number] : 1965 60 From: Anni Olson DO PCP: MARGARETH Dawson Status:ADM DORIS Location: [place] [address] 1 Providers Date of Admission: 04/09/25 Date of Discharge: 04/10/25 Primary Care Physician: MARGARETH Dawson Consultations 04/09/25 17:07 Consult: Tele-Neurology Routine Consulting Provider: [facility] Reason for Consult: Acute Ischemic Stroke/TIA EMERGENT Consult: No MD Notified: Yes Date Notified: 04/09/25 Time Notified: 17:40 Method of Notification: Answering Service Nursing Unit Staff Notify [facility] of Tele-Neurology Consult: Yes Reason For Visit: STROKELIKE SYMPTOMS Diagnosis Discharge Diagnosis (1) Dizziness: Status: Acute Code(s): R42 - Dizziness and giddiness Medications at Discharge Home Medications cholecalciferol (vitamin D3) 25 mcg (1,000 unit) capsule 1,000 unit PO QDAY 05/17/18 cyanocobalamin (vitamin B-12) 1,000 mcg tablet (Vitamin B-12) 1,000 mcg PO QDAY 05/17/18 multivitamin,is-bwqd-xqkcapnc (Complete Multivitamin tablet) 1 tab PO QDAY 05/17/18 omega-3 fatty acids 1,000 mg capsule (Fish Oil Concentrate) 2,000 mg PO BID 06/10/21 empagliflozin 25 mg-metformin ER 1,000 mg tablet,extended release 24hr (SynjardyXR) 1 tab PO DAILY #90 ea 11/29/24 gabapentin 300 mg capsule 1,200 mg (4 x 300 mg) PO BID 3 months #720 caps 11/29/24 glimepiride 4 mg tablet 4 mg PO QAM #90 tabs 11/29/24 lisinopril 10 mg tablet 10 mg PO DAILY #90 tabs 11/29/24 metformin 1,000 mg tablet 1,000 mg PO QHS #90 tabs 11/29/24 rosuvastatin 20 mg tablet 20 mg PO DAILY #90 tabs 11/29/24 semaglutide 2 mg/dose (8 mg/3 mL) subcutaneous pen injector 2 mg (0.75 mL) subcut QWEEK 3 months #9.75 mL 11/29/24 blood sugar diagnostic (OneTouch Ultra Test strips) #100 ea 11/30/24 blood-glucose meter (OneTouch Ultra2 Meter) #1 ea 11/30/24 lancets 30 gauge (OneTouch UltraSoft 2 Lancet) #200 ea 11/30/24 Hospital Course Operations None Procedures 2-D Echocardiogram and - (CT brain/CTA head neck/MRI brain ) Summary of Care Provided Minutes Spent on Discharge: 30 Hospital Course: Mr. Ma is a 60-year-old white male who presented to the emergency department on 04/09/2025 with a chief complaint of dizziness and disequilibrium. Patient got out of bed about 5:30 AM and felt dizzy. He had difficulty with balance andambulation without moving onto something. He stated he had a episode of this previously when his blood sugars were markedly elevated and he was diagnosed with diabetes however this was entirely similar to that. He had no nausea or vomiting. Vital signs on presentation showed temperature 97.7, heart rate 86, respiratory 18, blood pressure 154/82 and pulse ox 90%. CBC was unremarkable. Chemistry panel was unremarkable other than hyperglycemia with a blood sugar of 216. Troponin was normal. CT of the brain was unremarkable for acute findings. CTA of the head and neck was unremarkable for any acute findings or chronic occlusions. There was concern for stroke via telestroke in the emergency department and they recommended TIA/stroke workup with admission. He was admitted to PCU with stroke order set. MRI was ordered and negative for any acute infarct. Echocardiogram was performed and pending at the time of discharge. He was evaluated by neurology on the day of discharge. At the time of their evaluation his dizziness was gone and he actually started feeling better than before. He was complaining of a headache and was given Tylenol. They thought this was most likely a migraine and recommended a migraine cocktailhowever his headache had resolved by the time of my evaluation so we did not pursue migraine cocktail. They also recommended a 30-day event monitor to ensure that this was not related to any cardiac arrhythmia. He was monitored ontelemetry during his hospital course and had negative arrhythmia during that time period. Given his symptoms were resolved, headache resolved and he was back to his baseline we discharged him home with no medication changes in stablecondition on 04/10/2025. He is to follow-up with his primary care physician within the next 1 to 2 weeks and neurology within the next 2 to 3 months. Discharge diagnoses: Disequilibrium Dizziness Headache-suspected migraine DM-2-A1c 7.2 Hyperlipidemia-LDL 38 Essential hypertension Vitamin D deficiency Diabetic neuropathy Obesity Physical Exam Const alert, oriented x3, no apparent distress, no limitations, healthy appearing and well nourished; Negative for average body habitus Constitutional Narrative: Obese, upper middle-aged male, appears comfortable, watching television, nontoxic General Appearance: cooperative, comfortable, well kempt and well developed Exam Limitations: no limitations Nutritional Appearance: obese HEENT normocephalic, head/scalp atraumatic, hearing grossly normal bilaterally and moist oral mucous membranes HEENT Narrative: Mallampati 3, no thrush Resp normal respiratory effort, normal air movement, no retractions, no use of accessory muscles and clear to auscultation bilaterally Auscultation: Negative for rales, rhonchi or wheezes Cardio regular rate, regular rhythm, S1 normal heart sound, S2 normal heart sound, no murmurs, no rub, no gallops and no clicks GI normal to inspection, nondistended, normoactive bowel sounds, soft to palpation and non-tender Extremity no clubbing, cyanosis or edema Neuro oriented x3, moves all extremities and no focal motor deficits Speech: speech normal Psych mental status grossly normal Weight / BMI Weight Weight: 116.5 kg Body Mass Index (BMI) 34.8 ABG / Lab / Microbiology Data 04/10/25 05:50 04/10/25 05:50 Laboratory: Laboratory Results - last 24 hr 04/09/25 13:54: POC Glucose 193 H 04/09/25 14:05: WBC 9.8, RBC 4.60, Hgb 15.2, Hct 42.4, MCV 92.2, MCH 33.0 H, MCHC 35.8, RDW Std Deviation 42.7, RDW Coeff of Brody 12.8, Plt Count 219, MPV 9.1, Immature Gran % (Auto) 0.600, Neut % (Auto) 69.6, Lymph % (Auto) 20.8, Anson% (Auto) 7.4, Eos % (Auto) 1.1, Baso % (Auto) 0.5, Absolute Neuts (auto) 6.8, Absolute Lymphs (auto) 2.03, Nucleated RBC % 0, PT Cancelled, INR Cancelled, APTT Cancelled, Sodium 136, Potassium 3.9, Chloride 103, Carbon Dioxide 20.0 L, Anion Gap 14, BUN 11, Creatinine 0.85, Estim Creat Clear Calc 115.09, Est GFR (MDRD) Non-Af 99, BUN/Creatinine Ratio 12.5, Glucose 216 H, Hemoglobin A1c 7.2 H, Calcium 9.6, Troponin T High Sens 12, TSH 1.130 04/09/25 14:35: PT 14.1, INR 1.1, APTT 24.6 04/09/25 17:03: Troponin T Hi Sens 2 Hr 10 04/09/25 19:43: Troponin T Hi Sens 4Hr 10 04/09/25 22:05: POC Glucose 95 04/10/25 05:50: WBC 6.3, RBC 4.26 L, Hgb 13.8, Hct 39.2 L, MCV 92.0, MCH 32.4 H,MCHC 35.2, RDW Std Deviation 42.7, RDW Coeff of Brody 12.8, Plt Count 187, MPV 9.0, Sodium 139, Potassium 4.0, Chloride 105, Carbon Dioxide 22.7, Anion Gap 11,BUN 9, Creatinine 0.75, Estim Creat Clear Calc 136.29, Est GFR (MDRD) Non-Af 103, BUN/Creatinine Ratio 12.5, Glucose 100 H, Calcium 8.9, Triglycerides 89, Cholesterol 91, LDL Cholesterol, Calc 38, VLDL Cholesterol 18, HDL Cholesterol 35 L, Cholesterol/HDL Ratio 2.60 04/10/25 06:17: POC Glucose 112 H 04/10/25 10:50: POC Glucose 166 H Radiography Diagnostic Testing: Radiology Impression Brain CT 04/09/25 13:56 IMPRESSION: Age consistent changes, no acute findings Reading Location: [facility] Head/Neck CTA 04/09/25 13:57 IMPRESSION: No CTA evidence of vaso occlusive disease No demonstrated aneurysm or vascular malformation Patent vertebral arteries No CTA evidence of CCA or ICA stenosis No suspicious enhancing lesion airway narrowing or deviation. Reading Location: [facility] Brain MRI 04/09/25 16:08 IMPRESSION: No acute intracranial abnormality. Reading Location: [id number] D/C Instructions Discharge Diet: Low fat / Low cholesterol and 1800 Calorie Control Diet Discharge Activity: Return to Normal Activity DC O2, CPAP, BIPAP Needs Home O2 Discharge instructions: No DC home with Oxygen: No Meaningful Use Info Meaningful Use Meaningful Use Diagnoses (Choose all that apply): None applicable Ischemic Stroke Statin Dosing Therapy Reference: STATIN DOSE THERAPY REFERENCE: * Patients > 75 years receive moderate or high dose statin therapy. * Patients 75 years or YOUNGER should receive HIGH intensity statin dose unless contraindicated. You will be required to document reason for non-treatment if statin daily dose does not meet guidelines. HIGH DOSE STATIN THERAPY DAILY Atorvastatin > than or = to 40 mg Rosuvastatin > than or = to 20 mg Amlodipine + Atorvastatin > than or = to 2.5/40 mg Ezetimibe + Simvastatin 10/80 mg Simvastatin 80mg Discharge Plan Admission Admit Date/Time: 04/09/25 16:02 Primary Reason for Your Visit: Dizziness and Disequilibrium Attending Provider: Anni Olson Primary Care Provider: Josy Marrero NP Consulting Providers: Cornelio Mullins; Jesusita Graff; Francisca Harris; Daily Marcos; Brianne Rebolledo; Hector Tavarez; Tammy Gu; [place]; Tyrone Iglesias; Ty Peoples; Andressa Geronimo; Harsh Lorenzana; Rohini Robles; Supriya Doty; Muna Taylor; Fabrizio Ruelas; Milly Durán; William Astorga; Eneida Olson; Tyra Feliciano;Bacilio Partida Discharge Orders/Prescriptions Prescriptions: Continued cholecalciferol (vitamin D3) 1,000 unit capsule 1,000 unit PO QDAY cyanocobalamin (vitamin B-12) [Vitamin B-12] 1,000 mcg tablet 1,000 mcg PO QDAY multivitamin,ur-jwpm-xnovmqgq [Complete Multivitamin] tablet 1 tab PO QDAY [...] Rx Instructions: use 2 x a day Other Ambulatory Orders: 30 Day Event Recorder Preventi (Urgent) Timeframe: 1 Day Facility: [facility] - Location: Cardiovascular Services Ordered By: Dr. Anni Olson Referrals / Follow Up: Rebel Funes MD [Non-Staff -Ordering Privileges] - Within 3 Months Josy Marrero NP, PHONE MANAGER-C [Primary Care Provider] - In 1 Week Disposition Disposition (needs filled in before D/C Order can be placed): Home, Self Care Charges/Coding Visit Charges Inpatient E&M: 50953 Disch Hosp 04/10/25 1422 <Electronically signed by Anni Olson DO> Cosigner Signature (if applicable): CC: MARGARETH Marrero; Dr. Anni Olson, ~ Signed [facility] Work Phone: Reason for referral (narrative)No reason for referral information availableWDayton [facility] Work Phone: Chief Complaint and Reason for Visit Chief [...] pm Hypertension April 09, 2025 4:02 pm Chief Complaint Admit Date Shoulder pain(Trigger injection) February 6:58pm STROKELIKE SYMPTOMS April 09, 2025 4:02 pm STROKELIKE SYMPTOMS April 10, 2025 1:59p m Advance Directives No Advanced Directives Records Found Advance Directive Response Recorded Date/ Time Do you have a Healthcare Power of Garland Machine Operator? No April 09, 2025 2:15pm Advance Directive Response Recorded Date/ Time Do you have a Healthcare Power of Garland Machine Operator? No April 09, 2025 4:38pm Summary Purpose Family History No Family History Records Found Additional Source Comments Care Teams (unrecognized sec tion and content) Team Status: Active Member Role/Relationship Status Dates Josy Marrero NP, PHONE MANAGER-C Primary Care Provider Active Team Status: Inactive Member Role/Relationship Status Dates Josy Marrero PHONE MANAGER, PHONE MANAGER-C Primary Care Provider Active Start: February 20, 2025 End: February 20, 2025 Josy Janes PHONE MANAGER, PHONE MANAGER-C Attending Provider Active Start: February 20, 2025 End: February 20, 2025 Josytayler NicholsMarrero PHONE MANAGER, PHONE MANAGER-C Referring Provider Active Start: February 20, 2025 End: February 20, 2025 Team Status: Active Member Role/Relationship Status Dates Josy Janes PHONE MANAGER, PHONE MANAGER-C Primary Care Provider Active Start: April 09, 2025 Dr. Harry Polanco DO Emergency Provider Active Start: April 09, 2025 Dr. Bacilio Partida DO Admit Provider Active Start: April 09, 2025 Dr. Bacilio Partida DO Attending Provider Active Start: April 09, 2025 Dr. Bacilio Partida DO Referring Provider Active Start: April 09, 2025 Team Status: Inactive Member Role/Relationship Status Dates Josy Janes PHONE MANAGER, PHONE MANAGER-C Primary Care Provider Active Start: April 09, 2025 End: April 10, 2025 Dr. Harry Polanco DO Emergency Provider Active Start: April 09, 2025 End: April 10, 2025 Dr. Bacilio Partida DO Admit Provider Active Start: April 09, 2025 End: April 10, 2025 Dr. Bacilio Partida DO Referring Provider Active Start: April 09, 2025 End: April 10, 2025 Dr. Bacilio Partida DO Other Provider Active Start: April 09, 2025 End: April 10, 2025 Cornelio Mullins MD Other Provider Active Start: 2024 End: April 10, 2025 Dr. Jesusita Graff MD Other Provider Active Start: April 09, 2025 End: April 10, 2025 Francisca Harris MD Other Provider Active Start : April 09, 2025 End: April 10, 2025 Dr. Daily Marcos , Other Provider Active St art: April 09, 2025 End: April 10, 2025 Dr. Brianne Rebolledo MD Other Provider Active Start: April 09, 2025 End: April 10, 2025 Dr. Hector Tavarez MD Other Provider Active Sta rt: April 09, 2025 End: April 10, 2025 Dr. Tammy Gu MD Other Provider Active Start : April 09, 2025 End: April 10, 2025 Dr. Ant Park MD Other Provider Active Start: April 09, 2025 End: April 10, 2025 Dr. Tyrone Iglesias MD Other Provider Active Start : April 09, 2025 End: April 10, 2025 Dr. Ty Peoples MD Other Provider Active Sta rt: April 09, 2025 End: April 10, 2025 Andressa Geronimo MD Other Provider Active Start : April 09, 2025 End: April 10, 2025 Dr. Harsh Lorenzana MD Other Provider Active St art: April 09, 2025 End: April 10, 2025 Dr. Rohini Robles MD Other Provider Active Start : April 09, 2025 End: April 10, 2025 Dr. Supriya Doty MD Other Provider Active Sta rt: April 09, 2025 End: April 10, 2025 Dr. Muna Taylor MD Other Provider Active Start: April 09, 2025 End: April 10, 2025 Dr. Fabrizio Ruelas MD Other Provider Active St art: April 09, 2025 End: April 10, 2025 Dr. Milly Durán MD Other Provider Active Star t: April 09, 2025 End: April 10, 2025 Dr. William Astorga MD Other Provider Active St art: April 09, 2025 End: April 10, 2025 Dr. Eneida Olson MD Other Provider Active Start: April 09, 2025 End: April 10, 2025 Tyra Feliciano MD Other Provider Active Start: April 09, 2025 End: April 10, 2025 Dr. Anni Olson DO Attending Provider Active S tart: April 09, 2025 End: April 10, 2025 Team Status: Active Member Role/Relationship Status Dates Josy Marrero NP, PHONE MANAGER-C Primary Care Provider Active Start: April 10, 2025 Dr. Harry Polanco DO Emergency Provider Active Start: April 10, 2025 Dr. Bacilio Partida DO Admit Provider Active Start: April 10, 2025 Dr. Bacilio Partida DO Referring Provider Active Start: April 10, 2025 Dr. Bacilio Partida DO Other Provider Active Start: April 10, 2025 Cornelio Mullins MD Other Provider Active Start: 2024 Dr. Jesusita Graff MD Other Provider Active Start: April 10, 2025 Francisca Harris MD Other Provider Active Start : April 10, 2025 Dr. Daily Marcos DO Other Provider Active St art: April 10, 2025 Dr. Brianne Rebolledo MD Other Provider Active Start: April 10, 2025 Dr. Hector Tavarez MD Other Provider Active Sta rt: April 10, 2025 Dr. Tammy Gu MD Other Provider Active Start : April 10, 2025 Dr. Ant Park MD Other Provider Active Start: April 10, 2025 Dr. Tyrone Iglesias MD Other Provider Active Start : April 10, 2025 Dr. Ty Peoples MD Other Provider Active Sta rt: April 10, 2025 Andressa Geronimo MD Other Provider Active Start : April 10, 2025 Dr. Harsh Lorenzana MD Other Provider Active St art: April 10, 2025 Dr. Rohini Robles MD Other Provider Active Start : April 10, 2025 Dr. Supriya Doty MD Other Provider Active Sta rt: April 10, 2025 Dr. Muna Taylor MD Other Provider Active Start: April 10, 2025 Dr. Fabrizio Ruelas MD Other Provider Active St art: April 10, 2025 Dr. Milly Durán MD Other Provider Active Star t: April 10, 2025 Dr. William Astorga MD Other Provider Active St art: April 10, 2025 Dr. Eneida Olson MD Other Provider Active Start: April 10, 2025 Tyra Feliciano MD Other Provider Active Start: April 10, 2025 Dr. Anni Olson DO Attending Provider Active S tart: April 10, 2025 Dr. Anni Olson DO Other Provider Active Start : April 10, 2025 Goals (unrecognized section and content) Goals may be documented in a n alternate section (unrecognized sect ion and content) No Status Records Found INFORMATION SOURCE (unrecogn ized section and content) DATE CREATED AUTHOR 04/27/2025 [facility] FOR RECORDS PERTAINING TO PATIENTS WHO ARE [...] BE BASED ON THE PRIMARY CLINICAL RECORDS. [facility]. provides no warranty or guarantee of the accuracy or completeness of information in this document.
[2025-05-01 03:37] LABS: Hematocrit 45.5 % (40-54); Hemoglobin 15.6 g/dL (13.0-16.5); Immature Granulocytes Count 0.010 X10^3/uL (0.0-0.0); Mean Corp Hgb Conc 34.3 g/dL (32-36); Mean Corpuscular Volume 94.4 fL (80-94); Mean Platelet Vol. 9.6 fl (6.2-12.0); NRBC Flagged by Analyzer 0 % (0-5); Platelet Count 255 K/mm3 (150-450); RBC Distribution Width CV 13.4 % (11.6-14.6); RBC Distribution Width SD 46.5 fl (35.1-43.9); Red Blood Count 4.82 M/mm3 (4.6-6.2); White Blood Count 7.8 K/mm3 (4.4-11.0)
[2025-05-01 04:50] LABS: AST(SGOT) 21 U/L (<=37); Alanine Aminotransfer ALT/SGPT 19 U/L (<=46); Albumin, Serum 4.6 g/dL (3.4-4.8); Alkaline Phosphatase 35 U/L (40-129); Anion Gap 14 (5-15); BUN 13 mg/dL (4-19); BUN/Creat Ratio 16.7 RATIO (10-20); Calcium,Total 9.9 mg/dL (7.6-11.0); Carbon Dioxide 22.3 mmol/L (21.0-32.0); Chloride 106 mmol/L (98-108); Globulin 2.6 g/dL (2.2-4.2); Glucose 103 mg/dL (70-99); Potassium 4.0 mmol/L (3.3-5.1)
[2025-05-01 05:27] LABS: Cholesterol 97 mg/dL (<=200); Low Density Lipoprotein Calc. 37 mg/dL; Triglycerides 119 mg/dL; Very Low Density Lipoprotein 24 mg/dL (5-40); cholesterol:hdl ratio screen 2.68
[2025-05-02 08:09] LABS: CRP, High Sensitivity 0.54 mg/L (0.00-3.00)
== END | disposition home or self-care (01) ==
PROVIDERS: PCP Nurse Practitioner; Referring Provider Nurse Practitioner; Visit Provider Nurse Practitioner
DX: R42 Dizziness and giddiness (principal); E11.9 Type 2 diabetes mellitus without complications
CPT/HCPCS: 80053; 80061; 83036; 85025; 86141